=== PATIENT | female | born 1955 | race Caucasian/White ===

== ENCOUNTER → 2017-04-09 | Outpatient (CLI) | payer OTHER ==
[2017-04-09 14:57] LABS: CH 33.9; CHCM 33.8; HCT 42.9 % (34.0-46.0); HDW 2.19; HGB 14.4 gm/dL (11.4-16.0); MCH 33.7 pg (25.0-35.0); MCHC 33.5 g/dL (31.0-37.0); MCV 100.7 fL (80.0-100.0); Mean Platelet Volume 6.9; RBC 4.27 m/uL (3.80-5.40); RDW 12.9 % (11.5-15.5); WBC 11.6 k/uL (3.8-10.6)
[2017-04-09 15:11] LABS: Anion Gap 8 mmol/L; Blood Urea Nitrogen 8 mg/dL (7-17); Calcium 9.7 mg/dL (8.4-10.2); Carbon Dioxide 31 mmol/L (22-30); Chloride 101 mmol/L (98-107); Glucose 86 mg/dL (74-99); Non-African American GFR(MDRD) >60 (>60 ml/min/1.73 sqM); Potassium 4.6 mmol/L (3.5-5.1); Sodium 140 mmol/L (137-145)
== END | disposition home or self-care (01) ==
LOC: LABPAT 14:31
PROVIDERS: ATTEND Obstetrics & Gynecology
DX: Z01.810 Encounter for preprocedural cardiovascular examination (principal); Z01.812 Encounter for preprocedural laboratory examination
CPT/HCPCS: 80048; 85027

== ENCOUNTER 2017-04-15 07:55 | Day surgery (SDC) | payer OTHER ==
--- NOTE | 2017-04-15 07:33 | P.HPOB ---
History of Present Illness H&P Date: 04/15/17 Chief Complaint: Uterine prolapse This 60-year-old female who has significant uterine and vaginal prolapse. Symptoms have been worsening over the last 2 years but have started to stabilize since her work has stopped. Discussion on treatment options for her prolapse were discussed and while we did discuss and offered pessary she would prefer a more permanent solution and as she is not sexually active would like this repaired as fully as possible. She is therefore scheduled for robotic- assisted laparoscopic hysterectomy with BSO and likely anterior with possible posterior repair. The anterior posterior repair however will be decided once she is asleep and once the hysterectomy is completed. Risks/benefits/ alternatives to this procedure were discussed with the patient in detail and included but were not limited to damage to bowel, bladder, ureters, bleeding, and infection. Dr.' ceja clear her for cardiology. On physical exam vital signs are stable and afebrile. Heart regular, lungs clear, extremities without pain. Abdominal exams unremarkable. Vaginal exam reveals grade 2-3 prolapse of uterus and bladder. Predominantly the reason robot is been used just for assistance in removal of ovaries due to age greater than 60. She's are answered for her prior to proceeding to the operating room. Assessment vaginal prolapse. Plan robotic-assisted laparoscopic hysterectomy withBSO possible AKUA. Likely anterior and possible posterior repair. Past Medical History Past Medical History: COPD, GERD/Reflux, Hyperlipidemia, Hypertension Additional Past Medical History / Comment(s): urinary leakage,uterine prolapse History of Any Multi-Drug Resistant Organisms: None Reported Past Surgical History: Hernia Repair, Orthopedic Surgery Additional Past Surgical History / Comment(s): umbilical hernia repair,ORIF lt wrist,carpel tunnel ruby wrist,rt hand tendon repair,facial reconstruction-metal plate chin-repair mult fx around lt eye and face,teeth removed,rt cheek skin fatty tumor removed Past Anesthesia/Blood Transfusion Reactions: No Reported Reaction Additional Past Anesthesia/Blood Transfusion Reaction / Comment(s): no hx blood transfusion Smoking Status: Current every day smoker - Past Family History Mother Family Medical History: Cancer Additional Family Medical History / Comment(s): renal cell carcinoma Father Family Medical History: Cancer Additional Family Medical History / Comment(s): brain Son(s) Family Medical History: Congestive Heart Failure (CHF), Renal Disease Additional Family Medical History / Comment(s): obesity,hemodialysis,MRSA Medications and Allergies Home Medications Medication Instructions Recorded Confirmed Type Albuterol Sulfate [Ventolin Hfa] 1 - 2 puff INHALATION Q6H PRN 04/05/17 History Alendronate Sodium [Fosamax] 70 mg PO Q7D 04/05/17 04/05/17 History Atorvastatin [Lipitor] 10 mg PO DAILY 04/05/17 04/05/17 History Budesonide/Formoterol Fumarate 2 puff INHALATION BID 04/05/17 04/05/17 History [Symbicort 160-4.5 Mcg Inhaler] Ergocalciferol [Vitamin D2] 50,000 unit PO Q30D 04/05/17 04/05/17 History Metoprolol Tartrate [Lopressor] 25 mg PO BID 04/05/17 04/05/17 History Naproxen Sodium [Aleve] 220 - 440 mg PO BID PRN 04/05/17 04/05/17 History Omeprazole [PriLOSEC] 20 mg PO BID 04/05/17 04/05/17 History Allergies Allergy/AdvReac Type Severity Reaction Status Date / Time meperidine [From Demerol] Allergy Dyspnea Verified 04/05/17 15:05 Exam Osteopathic Statement: *. No significant issues noted on an osteopathic structural exam other than those noted in the History and Physical/Consult.
[~2017-04-15 07:55] MED LIST: DEXAMETHASONE SOD PHOSPHATE 10 MG/ML 1 ML VIAL IV ONE; LIDOCAINE 1% 20 ML VIAL (10MG/ML) FOR IV START INTRADERMA PRN; ONDANSETRON 4 MG/2 ML VIAL IVP ONE; SCOPOLAMINE 1.5MG/72HR PATCH TRANSDERM ONE; ceFAZolin 2 GM in SODIUM CHLORIDE 0.9% 100 ML IVPB ONE; fentaNYL (PF) 50 MCG/ML 2 ML AMP IV PRN
[2017-04-15] MEDS: LACTATED RINGERS 1,000 ML IV SCH (08:39)
[2017-04-15 08:50] LABS: Glucose,Whole Blood 133 mg/dL (75-99)
[2017-04-15] MEDS ORDERED: BUPIVACAINE (PF) 0.25% 30 ML VIAL SQ ONE (10:10)
[2017-04-15] MEDS ORDERED: SIMETHICONE 80 MG CHEWABLE PO PRN (10:43)
[2017-04-15] MEDS ORDERED: Acetaminophen-Codeine 300-30mg TAB PO PRN ×2 (10:43)
[2017-04-15] MEDS ORDERED: ONDANSETRON 4 MG/2 ML VIAL IVP PRN (10:43)
[2017-04-15] MEDS ORDERED: KETOROLAC 30 MG/ML 1 ML VIAL IVP PRN (10:43)
[2017-04-15] MEDS ORDERED: diphenhydrAMINE 50 MG/ML 1 ML VIAL IVP PRN (10:43)
[2017-04-15] MEDS ORDERED: ALBUTEROL NEBULIZED 2.5 MG/3 ML INHALATION PRN (10:45)
[2017-04-15] MEDS ORDERED: NON-FORMULARY DRUG (Alendronate Sodium [Fosamax] 70 MG) PO SCH (10:45)
--- NOTE | 2017-04-15 10:54 | P.OP ---
Date of Procedure: 04/15/17 Preoperative Diagnosis: Uterine prolapse Postoperative Diagnosis: same Procedure(s) Performed: daVinci hysterectomy with BSO Implants: Anesthesia: QING Surgeon: Camilo Hinojosa Pickle Pumper #1: Cheryl Dc Estimated Blood Loss (ml): 5 IV fluids (ml): 600 Urine output (ml): 100 Pathology: other (uterus, cervix, fallopian tubes, and ovaries) Indications for Procedure: Operative Findings: Screening polyp noted during procedure however at the conclusion procedure there was minimal cystocele or rectocele. As she was also having some difficulty with anesthesia the decision to stop the case at this point was made with what grossly appeared to be adequate repair of cystocele and rectocele from hysterectomy itself Description of Procedure: She was taken to the operating suite where a general anesthetic was found be adequate. She was prepped and draped in the normal sterile fashion and placed in dorsal lithotomy position. Initially a speculum was inserted into the vagina and the anterior lip of cervix identified grasped with single-tooth tenaculum. Uterus was then sounded to 8 cm and cup was measured to 3 cm. Gladis manipulator was inserted without difficulty and sutures were placed at 3-9/10 clock position. Roberts cath was then placed other incidents removed and at this point gloves were changed and attention was turned to abdominal portion procedure. Initially 0.2 mL of quarter percent Marcaine was injected superior to her umbilicus. Through this injected anesthetic a 5 mm skin incision was made. Due to how skinny the patient was we did elevate the abdomen and skin with concern over night going all the way through the fascial layer to avoid this from happening. Once skin incision was made a 5 mm port and sleeve were inserted under direct visualization with an optical trocar and sleeve. Once peritoneal placement was assured gas left fully insufflate the abdomen. Patient was then placed in steep Trendelenburg position and 2 lateral ports and a fourth port and sleeve were inserted in normal fashion 10 cm lateral to the umbilicus and between the left lateral and medial port. Robot was brought in and docked with a scissor and the one arm and a [place] grasper in the 2 arm at this point did break scrub and go to the console. Uterus was elevated to the right-hand side where the infundibular pelvic lid was identified cauterized and cut cauterization and cutting through the broad ligament tissues was made all the way to the round ligament which was also cauterized and transected. Once this was accomplished anterior posterior leafs of the broad ligament were developed and dissected down to skeletonize the vasculature on the left-hand side. Vessels were then identified and cauterized. At this point used to the [place] grasped undermining the bladder flap was undermined and then incised with of some bumps and carried across the face of the uterus. Bladder was then bluntly dissected out of the operative field. Attention was then turned to the right-hand side and a similar fashion was developed. Once this was accomplished and it appeared we had good cauterization of uterine vessels an anterior colpotomy was made. Once this was accomplished and the cup was visualized did follow the couple around in 3 and 60 fashion in a counterclockwise fashion cheating head when necessary to maintain excellent hemostasis. Once 3 and 60 was completed uterus was brought into the vagina to help maintain pneumoperitoneum. Seeing no bleeding from the pedicles instruments were exchanged for a cardia grasper and a make suture cut and side effects suture 20 was used to reapproximate the vaginal cuff. Once this was accomplished pelvis irrigated and instruments were removed 5 deep breaths were provided during the process. Dr. Dc at this point did close the incision subcuticularly. Anesthesia was having some difficulty due to her prior medical problems and with what grossly appeared to be excellent repair of the prolapse the decision to stop the case was. Cystoscopy was then performed and good flow was noted from both ureteral jets. Roberts cath was replaced and patient was taken to the recovery room in stable and satisfactory condition. Sponge, lap, needle counts were all correct 2 and patient tolerated my portion of the procedure very well.
[2017-04-15] MEDS ORDERED: LEVALBUTEROL NEB 1.25 MG/3 ML AMP INHALATION ONE (11:11)
[2017-04-15] MEDS ORDERED: KETOROLAC 30 MG/ML 1 ML VIAL IVP ONE (11:41)
--- NOTE | 2017-04-15 11:51 | XR ---
EXAMINATION TYPE: XR chest 1V DATE OF EXAM: 04/15/2017 COMPARISON: NONE HISTORY: Rule out pneumothorax after uterus and bladder surgery. TECHNIQUE: Single AP portable frontal upright view of the chest is obtained. FINDINGS: Underlying chronic emphysematous change is felt present. There is no suspicious focal air s pace opacity, pleural effusion, or pneumothorax seen. Patchy right basilar scarring and/or atelectasi s is felt present. The cardiac silhouette size is within normal limits. The osseous structures are demineralized. Pneumoperitoneum is present presumed postsurgical. There is extensive subcutaneous em physema in both chest valles extending to bilateral supraclavicular region. IMPRESSION: Pneumoperitoneum presumed postsurgical. Extensive subcutaneous emphysema noted. There is chronic emphysematous change with right basilar scarring or atelectasis. No sizable pneumothorax is evident bilaterally.
[2017-04-15] MEDS ORDERED: LACTATED RINGERS 1,000 ML IV ONE (12:09)
[2017-04-15] MEDS: SENNOSIDES-DOCUSATE SODIUM 1 EACH TAB PO SCH (20:46)
[2017-04-15] MEDS: PANTOPRAZOLE 40 MG TABLET PO SCH (20:48)
[2017-04-15] MEDS: SYMBICORT 160-4.5 MCG INHALER INHALATION SCH (20:52)
[2017-04-15] MEDS: METOPROLOL TARTRATE 25 MG TAB PO SCH (21:03)
[2017-04-16 07:23] LABS: Basophils % (A) 0 %; CH 33.5; CHCM 32.2; Eosinophils # (A) 0.1 k/uL (0-0.7); Eosinophils % (A) 1 %; HCT 37.3 % (34.0-46.0); HDW 2.11; HGB 12.4 gm/dL (11.4-16.0); Luc # (Auto) 0.18; Luc % (Auto) 2; Lymphocytes # (A) 2.3 k/uL (1.0-4.8); Lymphocytes % (A) 28 %; MCH 34.8 pg (25.0-35.0); MCHC 33.2 g/dL (31.0-37.0); MCV 104.7 fL (80.0-100.0); Macrocytosis Slight; Mean Platelet Volume 7.1; Monocytes # (A) 0.5 k/uL (0-1.0); Monocytes % (A) 6 %; Neutrophils # (A) 5.1 k/uL (1.3-7.7); Neutrophils % (A) 63 %; RBC 3.56 m/uL (3.80-5.40); RDW 12.5 % (11.5-15.5); WBC 8.1 k/uL (3.8-10.6); WBC (Perox) 8.65
[2017-04-16] MEDS: PANTOPRAZOLE 40 MG TABLET PO SCH (08:25)
[2017-04-16] MEDS: METOPROLOL TARTRATE 25 MG TAB PO SCH (08:25)
[2017-04-16] MEDS: SENNOSIDES-DOCUSATE SODIUM 1 EACH TAB PO SCH (08:33)
[2017-04-16 08:47] VITALS: RESP 18; TEMP 97
[2017-04-16] MEDS ORDERED: ATORVASTATIN 10 MG TAB PO SCH (09:00)
[2017-04-16] MEDS: SYMBICORT 160-4.5 MCG INHALER INHALATION SCH (09:47)
[2017-04-16 10:26] VITALS: BMI 15.6
--- NOTE | 2017-04-16 12:27 | P.DS ---
Providers Expected date of discharge: 04/16/17 Attending physician: Camilo Hinojosa Consults: 04/15/17 10:47 Consult Physician Urgent Consulting Provider: Raymundo Barroso Consult Reason/Comments: hypertension Do you want consulting provider notified?: Yes Hospital Course: Emily is doing very well postop day 1. She is involuting, voiding, and she is tolerating her diet. She's passed flatus and voices no complaints. She is requesting discharge home today. Vital signs are stable and afebrile. However , she normally is hypertensive and has had low blood pressure since the surgery. We'll plan to have her see Dr. Maria later this week for reevaluation of her medication she is aware to call us or her primary or Dr. Maria should she have any elevated blood pressures or concerning blood pressures in the meantime. We'll plan to follow up with me in 1 week and a prescription for Tylenol No. 3 has been provided. Otherwise she has irregular heartbeat, lungs sound clear and her abdomen is soft and nontender. Incisions are clean dry and intact with minimal swelling of her abdomen due to air from surgery and her very slight frame. Extremities are without pain. Assessment postop day 1. As above. Patient Condition at Discharge: Good Plan - Discharge Summary New Discharge Prescriptions: New Acetaminophen-Codeine 300-30mg [Tylenol #3] 1 tab PO Q4H PRN #30 tablet PRN Reason: Pain No Action Ergocalciferol [Vitamin D2] 50,000 unit PO Q30D Alendronate Sodium [Fosamax] 70 mg PO Q7D Omeprazole [PriLOSEC] 20 mg PO BID Naproxen Sodium [Aleve] 220 - 440 mg PO BID PRN PRN Reason: Pain Metoprolol Tartrate [Lopressor] 25 mg PO BID Budesonide/Formoterol Fumarate [Symbicort 160-4.5 Mcg Inhaler] 2 puff INHALATION BID Atorvastatin [Lipitor] 10 mg PO DAILY Albuterol Sulfate [Ventolin Hfa] 1 - 2 puff INHALATION Q6H PRN PRN Reason: Pain Discharge Medication List Albuterol Sulfate [Ventolin Hfa] 1 - 2 puff INHALATION Q6H PRN 04/05/17 [History ] Alendronate Sodium [Fosamax] 70 mg PO Q7D 04/05/17 [History] Atorvastatin [Lipitor] 10 mg PO DAILY 04/05/17 [History] Budesonide/Formoterol Fumarate [Symbicort 160-4.5 Mcg Inhaler] 2 puff INHALATION BID 04/05/17 [History] Ergocalciferol [Vitamin D2] 50,000 unit PO Q30D 04/05/17 [History] Metoprolol Tartrate [Lopressor] 25 mg PO BID 04/05/17 [History] Naproxen Sodium [Aleve] 220 - 440 mg PO BID PRN 04/05/17 [History] Omeprazole [PriLOSEC] 20 mg PO BID 04/05/17 [History] Acetaminophen-Codeine 300-30mg [Tylenol #3] 1 tab PO Q4H PRN #30 tablet [Rx] Follow up Appointment(s)/Referral(s): Camilo Hinojosa DO [Doctor of Osteopathic Medicine] - 1 Week Raymundo Barroso MD [STAFF PHYSICIAN] - 3 Days Activity/Diet/Wound Care/Special Instructions: No heavy lifting, limit stairs and driving, and pelvic rest. If any high temperatures, heavy bleeding, or severe pain call my office. We'll have her follow up with cardiology as soon as possible as they did not see her in the hospital and her blood pressures have been too low for us to provide medication. She has a blood pressure cuff at home and can monitor that as well and she has any blood pressures are beginning to get elevated we'll have her call her primary care provider, Dr. Maria or myself or report to the emergency room. Discharge Disposition: HOME SELF-CARE
[2017-04-16 12:42] VITALS: BP 95/65; PULSE 78
[2017-04-16] MEDS: LACTATED RINGERS 1,000 ML IV SCH (12:47)
== END 2017-04-16 13:30 | disposition home or self-care (01) ==
LOC: OR 07:55 → 6PED 10:38 → 6SEL 12:45 → 6PED 14:12 → OR 04-16 13:30
PROVIDERS: ATTEND Obstetrics & Gynecology
DX: N81.2 Incomplete uterovaginal prolapse (principal); N72 Inflammatory disease of cervix uteri; N85.8 Other specified noninflammatory disorders of uterus; N84.0 Polyp of corpus uteri; N80.0 Endometriosis of uterus; N83.8 Other noninflammatory disorders of ovary, fallopian tube and broad ligament; D27.9 Benign neoplasm of unspecified ovary; I95.81 Postprocedural hypotension; J43.9 Emphysema, unspecified; I10 Essential (primary) hypertension; E78.5 Hyperlipidemia, unspecified; J44.9 Chronic obstructive pulmonary disease, unspecified; K21.9 Gastro-esophageal reflux disease without esophagitis; F17.210 Nicotine dependence, cigarettes, uncomplicated; Z79.51 Long term (current) use of inhaled steroids; Z79.899 Other long term (current) drug therapy; Z88.8 Allergy status to other drugs, medicaments and biological substances
CPT/HCPCS: 58552; 94640 ×2; 86900; 86901; 85025; 86850; 88307; 71010; J1100; J0690; J2405; J1885

== ENCOUNTER 2022-12-10 21:17 | Inpatient (IN) | payer MEDICARE, OTHER ==
[2022-12-10 21:59] LABS: Basophils # (A) 0.1 k/uL (0-0.2); Basophils % (A) 0 %; Eosinophils # (A) 0.2 k/uL (0-0.7); Eosinophils % (A) 2 %; HCT 32.6 % (34.0-46.0); HGB 10.7 gm/dL (11.4-16.0); Lymphocytes # (A) 1.8 k/uL (1.0-4.8); Lymphocytes % (A) 13 %; MCH 31.9 pg (25.0-35.0); MCHC 32.7 g/dL (31.0-37.0); MCV 97.6 fL (80.0-100.0); Mean Platelet Volume 7.5; Monocytes # (A) 0.8 k/uL (0-1.0); Monocytes % (A) 6 %; Neutrophils # (A) 10.9 k/uL (1.3-7.7); Neutrophils % (A) 78 %; Platelet Count 359 k/uL (150-450); RBC 3.34 m/uL (3.80-5.40); RDW 13.4 % (11.5-15.5); WBC 14.1 k/uL (3.8-10.6)
[2022-12-10 22:08] LABS: Lactic Acid, Venous 1.1 mmol/L (0.7-2.0)
[2022-12-10 22:09] LABS: ALT 20 U/L (4-34); AST 61 U/L (14-36); African American GFR (CKD) >90 (>60 ml/min/1.73 sqM); Albumin 2.6 g/dL (3.5-5.0); Alcohol <10 mg/dL; Alkaline Phosphatase 210 U/L (38-126); Anion Gap 2 mmol/L; Blood Urea Nitrogen 10 mg/dL (7-17); Carbon Dioxide 28 mmol/L (22-30); Chloride 104 mmol/L (98-107); Glucose 82 mg/dL (74-99); Lipase 152 U/L (23-300); Magnesium 1.2 mg/dL (1.6-2.3); Non-African American GFR(CKD) >90 (>60 ml/min/1.73 sqM); Sodium 134 mmol/L (137-145); Total Bilirubin 1.1 mg/dL (0.2-1.3); Total Protein 6.1 g/dL (6.3-8.2)
--- NOTE | 2022-12-10 22:16 | XR ---
EXAMINATION TYPE: XR chest 2V DATE OF EXAM: 12/10/2022 COMPARISON: NONE HISTORY: Weakness TECHNIQUE: 2 views FINDINGS: Heart is normal. Lungs are clear of consolidation. There are no hilar masses. There is flat tening of the diaphragm. Bony thorax is intact. There is bilateral nipple shadows. Thoracic spine is intact. IMPRESSION: There is evidence for COPD. Normal heart. No significant change compared to exam. No acut e lung disease.
--- NOTE | 2022-12-10 22:17 | ED ---
General Adult HPI - General Chief complaint: Abdominal Pain Stated complaint: Swelling in feet, Prolapse rectum, Weakness Source: patient Mode of arrival: EMS Limitations: no limitations - History of Present Illness Initial comments: This is a 67-year-old female with a reported past medical history including hypertension, COPD presents emergency department via EMS for worsening weakness and abdominal distention as well as lower extremity swelling. The patient did admit that she has not seen a physician in several years and stated that she does not take any medications. The patient stated that she has had worsening abdominal distention over last several months in addition to swelling in the lower extremities over the last several months. The patient stated that her hailey ghter did continue to yell at her and forced her to come to the emergency department. The patient denied any acute pain at this time however stated that she had difficulty in relating that has been worsening over the last several weeks. The patient was resting in bed comfortably however and denied any fevers, chills as well as any nausea and vomiting. The patient did report that she had rectal prolapse intermittently over last several months and stated that it does prolapse only when she uses the bathroom but then does produce back when she moves around the house. The patient did admit to daily tobacco use however only reported to drinking 1 cocktail per day. - Related Data Home Medications Medication Instructions Recorded Confirmed No Known Home Medications 12/10/22 12/10/22 Allergies Allergy/AdvReac Type Severity Reaction Status Date / Time meperidine [From Demerol] Allergy Dyspnea Verified 12/10/22 21:45 Review of Systems ROS Statement: Those systems with pertinent positive or pertinent negative responses have been documented in the HPI. ROS Other: All systems not noted in ROS Statement are negative. Past Medical History Past Medical History: COPD, GERD/Reflux, Hyperlipidemia, Hypertension Additional Past Medical History / Comment(s): urinary leakage,uterine prolapse History of Any Multi-Drug Resistant Organisms: None Reported Past Surgical History: Hernia Repair, Orthopedic Surgery Additional Past Surgical History / Comment(s): umbilical hernia repair,ORIF lt wrist,carpel tunnel ruby wrist,rt hand tendon repair,facial reconstruction-metal plate chin-repair mult fx around lt eye and face,teeth removed,rt cheek skin fatty tumor removed Past Anesthesia/Blood Transfusion Reactions: No Reported Reaction Additional Past Anesthesia/Blood Transfusion Reaction / Comment(s): no hx blood transfusion Past Psychological History: Anxiety Past Alcohol Use History: Occasional Past Drug Use History: None Reported - Past Family History Mother Family Medical History: Cancer Additional Family Medical History / Comment(s): renal cell carcinoma Father Family Medical History: Cancer Additional Family Medical History / Comment(s): brain Son(s) Family Medical History: Congestive Heart Failure (CHF), Renal Disease Additional Family Medical History / Comment(s): obesity,hemodialysis,MRSA General Exam Limitations: no limitations General appearance: alert, in no apparent distress, cachectic, other (Temporal wasting noted) Head exam: Present: atraumatic, normocephalic, normal inspection Eye exam: Present: normal appearance, PERRL Pupils: Present: normal accommodation ENT exam: Present: normal exam, normal oropharynx, mucous membranes moist Neck exam: Present: normal inspection, full ROM Respiratory exam: Present: normal lung sounds bilaterally Cardiovascular Exam: Present: regular rate, normal rhythm, normal heart sounds GI/Abdominal exam: Present: soft, distended, other (Positive fluid wave and pitting edema noted) Rectal exam: Present: deferred Extremities exam: Present: pedal edema (Significant edema noted in the bilateral lower extremities with open sores noted on the left lower extremity with surrounding minor erythema) Back exam: Present: normal inspection, full ROM Neurological exam: Present: alert, oriented X3, CN II-XII intact Psychiatric exam: Present: normal affect, normal mood Skin exam: Present: warm, dry Course Vital Signs 12/10/22 21:30 Temperature 98.1 F Pulse Rate 103 H Respiratory 16 Rate Blood Pressure 125/85 O2 Sat by Pulse 99 Oximetry EKG Findings - EKG Comments: EKG Findings:: An EKG was obtained and was interpreted by myself showing a rate of 89, ID interval 148, QRS duration of 67 and QTC of 397. This EKG showed a normal sinus rhythm with no ST segment elevation or depression noted. Medical Decision Making - Medical Decision Making Was pt. sent in by a medical professional or institution (, PA, PULPIT OPERATOR, urgent care, hospital, or [facility]...) When possible be specific @ -No Did you speak to anyone other than the patient for history (EMS, parent, family, police, friend...)? What history was obtained from this source @ -No Did you review nursing and triage notes (agree or disagree)? Why? @ -I reviewed and agree with nursing and triage notes Were old charts reviewed (outside hosp., previous admission, EMS record, old EKG, old radiological studies, urgent care reports/EKG's, [facility] records)? Report findings @ -No old charts were reviewed Differential Diagnosis (chest pain, altered mental status, abdominal pain women, abdominal pain men, vaginal bleeding, weakness, fever, dyspnea, syncope, headache, dizziness, GI bleed, back pain, seizure, CVA, palpatations, mental health)? @ -Cirrhosis, abdominal ascites, generalized anasarca, UTI EKG interpreted by me (3pts min.). @ -As above X-rays interpreted by me (1pt min.). @ -Chest x-ray was obtained and was interpreted by myself showing evidence for COPD. There was a normal heart. There is no significant change compared to the prior exam. CT interpreted by me (1pt min.). @ -CT abdomen and pelvis with contrast was obtained and was interpreted by myself showing massive abdominal ascites. There is changes in the liver consistent with cirrhosis. There was sigmoid diverticulosis without diverticulitis. There was a small left food containing inguinal hernia. There is also perirectal hernia containing ascites fluid. There is some poorly marginated hypodensity in the superior and inferior right lobes of the liver that could be fatty infiltration. U/S interpreted by me (1pt. min.). @ -None done What testing was considered but not performed or refused? (CT, X-rays, U/S, labs)? Why? @ -None What meds were considered but not given or refused? Why? @ -None Did you discuss the management of the patient with other professionals (professionals i.e. , PA, PULPIT OPERATOR, lab, RT, psych nurse, social work instructor, website admin, teacher, worldwide chief creative officer, patient case manager)? Give summary @ -Yes, admitting physician Was smoking cessation discussed for >3mins.? @ -Yes Was critical care preformed (if so, how long)? @ -No Were there social determinants of health that impacted care today? How? (Homelessness, low income, unemployed, alcoholism, drug addiction, transportation, low edu. Level, literacy, decrease access to med. care, alf, rehab)? @ -No Was there de-escalation of care discussed even if they declined (Discuss DNR or withdrawal of care, Hospice)? DNR status @ -No What co-morbidities impacted this encounter? (DM, HTN, Smoking, COPD, CAD, Cancer, CVA, ARF, Chemo, Hep., AIDS, mental health diagnosis, sleep apnea, morbid obesity)? @ -Hypertension, COPD, medical noncompliance and lack of follow-up Was patient admitted / discharged? Hospital course, mention meds given and route, prescriptions, significant lab abnormalities, going to OR and other pertinent info. @ -The patient was seen and evaluated in the emergency department. On physical exam, the patient was resting in bed without any acute distress. Vital signs admission were stable. Laboratory workup as well as imaging was obtained. Laboratory workup was largely within normal limits however computed tomography scan showed massive abdominal ascites and the patient did have generalized anasarca on exam. The patient was given Lasix. Due to the patient's generalized anasarca and worsening massive abdominal ascites, the patient will be admitted for further workup and evaluation. Interventional radiology will be also be placed on consult at this time. The patient was told of this plan and was agreeable. The patient was admitted in stable condition. Undiagnosed new problem with uncertain prognosis? @ -No Drug Therapy requiring intensive monitoring for toxicity (Heparin, Nitro, Insulin, Cardizem)? @ -No Were any procedures done? @ -No Diagnosis/symptom? @ -Cirrhosis with massive abdominal ascites and generalized anasarca Acute, or Chronic, or Acute on Chronic? @ -Acute on chronic Uncomplicated (without systemic symptoms) or Complicated (systemic symptoms)? @ -Complicated Side effects of treatment? @ -No Exacerbation, Progression, or Severe Exacerbation? @ -No Poses a threat to life or bodily function? How? (Chest pain, [place], [place], pneumonia, PE, COPD, DKA, ARF, appy, cholecystitis, CVA, Diverticulitis, Homicidal, Suicidal, threat to staff... and all critical care pts) @ -Yes, worsening ascites and generalized anasarca can cause continued fluid overload and shortness of breath with possible end-stage organ damage and possible . - Lab Data Result diagrams: 12/10/22 21:52 12/10/22 21:52 Lab Results 12/10/22 12/10/22 12/10/22 Range/Units 21:52 21:52 21:52 WBC 14.1 H (3.8-10.6) k/uL RBC 3.34 L (3.80-5.40) m/uL Hgb 10.7 L (11.4-16.0) gm/dL Hct 32.6 L (34.0-46.0) % MCV 97.6 (80.0-100.0) fL MCH 31.9 (25.0-35.0) pg MCHC 32.7 (31.0-37.0) g/dL RDW 13.4 (11.5-15.5) % Plt Count 359 (150-450) k/uL MPV 7.5 Neutrophils % 78 % Lymphocytes % 13 % Monocytes % 6 % Eosinophils % 2 % Basophils % 0 % Neutrophils # 10.9 H (1.3-7.7) k/uL Lymphocytes # 1.8 (1.0-4.8) k/uL Monocytes # 0.8 (0-1.0) k/uL Eosinophils # 0.2 (0-0.7) k/uL Basophils # 0.1 (0-0.2) k/uL Sodium 134 L (137-145) mmol/L Potassium 4.0 (3.5-5.1) mmol/L Chloride 104 (98-107) mmol/L Carbon Dioxide 28 (22-30) mmol/L Anion Gap 2 mmol/L BUN 10 (7-17) mg/dL Creatinine 0.43 L (0.52-1.04) mg/dL Est GFR (CKD-EPI)AfAm >90 (>60 ml/min/1.73 sqM) Est GFR (CKD-EPI)NonAf >90 (>60 ml/min/1.73 sqM) Glucose 82 (74-99) mg/dL Plasma Lactic Acid Charles 1.1 (0.7-2.0) mmol/L Calcium 8.0 L (8.4-10.2) mg/dL Magnesium 1.2 L (1.6-2.3) mg/dL Total Bilirubin 1.1 (0.2-1.3) mg/dL AST 61 H (14-36) U/L ALT 20 (4-34) U/L Alkaline Phosphatase 210 H (38-126) U/L Ammonia <9 (<30) umol/L Troponin I (0.000-0.034) ng/mL NT-Pro-B Natriuret Pep pg/mL Total Protein 6.1 L (6.3-8.2) g/dL Albumin 2.6 L (3.5-5.0) g/dL Lipase 152 (23-300) U/L Serum Alcohol <10 mg/dL 12/10/22 12/10/22 Range/Units 21:52 21:52 WBC (3.8-10.6) k/uL RBC (3.80-5.40) m/uL Hgb (11.4-16.0) gm/dL Hct (34.0-46.0) % MCV (80.0-100.0) fL MCH (25.0-35.0) pg MCHC (31.0-37.0) g/dL RDW (11.5-15.5) % Plt Count (150-450) k/uL MPV Neutrophils % % Lymphocytes % % Monocytes % % Eosinophils % % Basophils % % Neutrophils # (1.3-7.7) k/uL Lymphocytes # (1.0-4.8) k/uL Monocytes # (0-1.0) k/uL Eosinophils # (0-0.7) k/uL Basophils # (0-0.2) k/uL Sodium (137-145) mmol/L Potassium (3.5-5.1) mmol/L Chloride (98-107) mmol/L Carbon Dioxide (22-30) mmol/L Anion Gap mmol/L BUN (7-17) mg/dL Creatinine (0.52-1.04) mg/dL Est GFR (CKD-EPI)AfAm (>60 ml/min/1.73 sqM) Est GFR (CKD-EPI)NonAf (>60 ml/min/1.73 sqM) Glucose (74-99) mg/dL Plasma Lactic Acid Charles (0.7-2.0) mmol/L Calcium (8.4-10.2) mg/dL Magnesium (1.6-2.3) mg/dL Total Bilirubin (0.2-1.3) mg/dL AST (14-36) U/L ALT (4-34) U/L Alkaline Phosphatase (38-126) U/L Ammonia (<30) umol/L Troponin I <0.012 (0.000-0.034) ng/mL NT-Pro-B Natriuret Pep 453 pg/mL Total Protein (6.3-8.2) g/dL Albumin (3.5-5.0) g/dL Lipase (23-300) U/L Serum Alcohol mg/dL Disposition Clinical Impression: Abdominal ascites, Cirrhosis, Anasarca Disposition: ADMITTED IP TO THIS HOSP Condition: Stable Is patient prescribed a controlled substance at d/c from ED?: No Referrals: None,Stated [Primary Care Provider] - 1-2 days Time of Disposition: 23:45 Decision to Admit Reason: Admit from EC Decision Date: 12/10/22 Decision Time: 23:45
--- NOTE | 2022-12-10 23:10 | CT ---
EXAMINATION TYPE: CT abdomen pelvis w con DATE OF EXAM: 12/10/2022 COMPARISON: None HISTORY: Abdominal distention and pain. CT DLP: 530 mGycm Automated exposure control for dose reduction was used. CONTRAST: Performed with IV Contrast, patient injected with 100cc mL of Isovue 300. Images obtained from the diaphragm to the floor the pelvis with the IV contrast. Lung bases are clear of consolidation. Heart size is normal. No pericardial effusion. There is pulmon mariela hyperinflation and flattening of the diaphragm. There is irregular liver consistent with some hepatic cirrhosis. There is massive abdominal ascites f luid. Spleen is intact. No pancreatic mass. The stomach is intact. There is no adrenal mass. Kidneys show satisfactory contrast opacification. No hydronephrosis. Abdomi nal aorta is atheromatous. No retroperitoneal adenopathy. Ureters are not dilated. Delayed images woodrow w normal renal excretion. Bladder distends smoothly. No evidence of a bowel obstruction. There are mu ltiple sigmoid diverticula. There is left inguinal hernia containing fluid and measures 3 cm. There i s descent of the floor of the urinary bladder and consistent with a cystocele. No free air. The lumbar spine shows a mild levoscoliosis. No compression fracture. No focal bone dest ruction. Bony pelvis is intact. IMPRESSION: Massive abdominal ascites fluid. Changes in the liver consistent with some cirrhosis. Sigmoid diverti culosis without diverticulitis. Cystocele. Small left fluid containing inguinal hernia. There is also perirectal hernia containing as cites fluid. Atherosclerotic vascular disease. Emphysema. No discrete liver mass. There is some poorly marginated hypodensity in the superior and inferior right lobes of the liver that could be fatty infiltration. L iver mass not entirely excluded.
[2022-12-11] MEDS ORDERED: FUROSEMIDE 10 MG/ML 4 ML VIAL IV STA (00:11)
[2022-12-11] MEDS ORDERED: NALOXONE 0.4 MG/ML 1 ML VIAL IV PRN (00:11)
[2022-12-11 00:37] LABS: INR 1.2 (<1.2); Partial Thromboplastin Time 26.8 sec (22.0-30.0); Prothrombin Time 12.3 sec (9.0-12.0)
[2022-12-11] MEDS ORDERED: IPRATROPIUM-ALBUTEROL 3 ML NEB INHALATION PRN (03:58)
--- NOTE | 2022-12-11 03:58 | P.HPIM ---
History of Present Illness H&P Date: 12/11/22 Chief Complaint: abd distention 67 year old female with COPD, hypertension patient presented from home, after her daughter insisted that gets evaluated for significant weight loss over the past few months to a year, and increase abd distention over the past few months . patient seems to be indifferent to her clinical situation , and has not seen a doctor in years. she admits to remove history of alcohol dependance but denies anything recent , she vaguely admits to daily cocktail. she continue to smoke cigarettes. she noted increase abd distention , but denies any trouble breathing, she has been increase fiber in her diet, and noted some decrease in abd size. she denies any nausea vomiting, GI bleeding, or vaginal bleeding , denies IVDA, denies any abd pain, or difficulty breathing. she admits to increase weakness and difficulty ambulating, she lives alone , and her daughter checks on her regularly again denies any history of IVDA, or history of hepatitis. she also noted that her left leg has been weeping from edema , over the past few days, which made her consider getting evaluated denies any calf muscle tenderness Review of Systems Pertinent positives as noted in HPI. All other systems were reviewed and are negative Past Medical History Past Medical History: COPD, GERD/Reflux, Hyperlipidemia, Hypertension Additional Past Medical History / Comment(s): urinary leakage,uterine prolapse History of Any Multi-Drug Resistant Organisms: None Reported Past Surgical History: Hernia Repair, Orthopedic Surgery Additional Past Surgical History / Comment(s): umbilical hernia repair,ORIF lt wrist,carpel tunnel ruby wrist,rt hand tendon repair,facial reconstruction-metal plate chin-repair mult fx around lt eye and face,teeth removed,rt cheek skin fatty tumor removed Past Anesthesia/Blood Transfusion Reactions: No Reported Reaction Additional Past Anesthesia/Blood Transfusion Reaction / Comment(s): no hx blood transfusion Past Psychological History: Anxiety Past Alcohol Use History: Occasional Past Drug Use History: None Reported - Past Family History Mother Family Medical History: Cancer Additional Family Medical History / Comment(s): renal cell carcinoma Father Family Medical History: Cancer Additional Family Medical History / Comment(s): brain Son(s) Family Medical History: Congestive Heart Failure (CHF), Renal Disease Additional Family Medical History / Comment(s): obesity,hemodialysis,MRSA Medications and Allergies Home Medications Medication Instructions Recorded Confirmed Type No Known Home Medications 12/10/22 12/10/22 History Allergies Allergy/AdvReac Type Severity Reaction Status Date / Time meperidine [From Demerol] Allergy Dyspnea Verified 12/10/22 21:45 Physical Exam Vitals: Vital Signs Temp Pulse Resp BP Pulse Ox 12/10/22 21:30 98.1 F 103 H 16 125/85 99 Intake and Output 12/10/22 12/10/22 12/11/22 14:59 22:59 06:59 Other: Weight 47.627 kg Constitutional: No acute distress, cachectic Eyes: Anicteric sclerae, moist conjunctiva, Pupils equal round reactive to light ENMT: NC/AT Oropharynx clear, no erythema, or exudates. red tongue Neck: Supple, no masses, or JVD No carotid bruits No thyromegaly Lungs: Clear to auscultation Clear to percussion Normal respiratory effort, no accessory muscle use Cardiovascular: Heart regular in rate and rhythm, No murmurs, gallops, or rubs +3 bilateral peripheral edema Abdominal: distended , positive transmission thrill and shifting dullness Nontender, no guarding, rebound or rigidity Abdomen moving with respiration Normoactive bowel sounds No palpable mass No abdominal wall hernia noted Skin: small open weeping blisters over left leg, otherwise, Normal temperature, tone, texture, turgor Extremities: No digital cyanosis No clubbing Pedal pulses intact and symmetrical Radial pulses intact and symmetrical No calf tenderness Psychiatric: Alert and oriented to person, place and time Appropriate affect Neuro Muscles Strength 4/5 in bilateral upper extremities and 3/5 bialteral lower extremities Sensation to light touch grossly present throughout Cranial nerves II-XII grossly intact Lymphatics: no palpable cervical or supraclavicular lymph nodes Results CBC & Chem 7: 12/10/22 21:52 12/10/22 21:52 Labs: Abnormal Lab Results - Last 24 Hours (Table) 12/10/22 12/10/22 Range/Units 21:52 21:52 WBC 14.1 H (3.8-10.6) k/uL RBC 3.34 L (3.80-5.40) m/uL Hgb 10.7 L (11.4-16.0) gm/dL Hct 32.6 L (34.0-46.0) % Neutrophils # 10.9 H (1.3-7.7) k/uL Sodium 134 L (137-145) mmol/L Creatinine 0.43 L (0.52-1.04) mg/dL Calcium 8.0 L (8.4-10.2) mg/dL Magnesium 1.2 L (1.6-2.3) mg/dL AST 61 H (14-36) U/L Alkaline Phosphatase 210 H (38-126) U/L Total Protein 6.1 L (6.3-8.2) g/dL Albumin 2.6 L (3.5-5.0) g/dL Assessment and Plan Assessment: 67 year old female coming from home due to increase abd size, and weeping leg edema , I discussed case with ED doc, and I accepted the admission for workup of ascites and paracentesis with anticipated length of stay < 2 midnights massive ascites severe protein calorie malnutrition IV lasix 20 mg bid encourage PO intake IR consult for paracentesis , send fluid to cytology , gram stain , culture , GI consult check hepatitis panel alcohol level negative < 10 mild anemia with Hgb 10.7 denies any GI bleeding continue to monitor rectal prolapse surgery consult COPD compensated duoneb PRN hypomagnesemia replace IV and follow up levels full code DVT PPX SCDs
[2022-12-11] MEDS: MAGNESIUM SULFATE-D5W PMX 1 GM in DEXTROSE/WATER 1 100ML.BAG IVPB SCH ×4 (04:19→19:27)
[2022-12-11] MEDS: FUROSEMIDE 10 MG/ML 2 ML VIAL IV SCH ×2 (08:23→21:20)
[2022-12-11 08:53] LABS: Appearance,Urine Clear (Clear); Bacteria,Urine Occasional /hpf; Bilirubin,Urine Negative (Negative); Blood,Urine Negative (Negative); Color,Urine Colorless; Glucose,Urine (UA) Negative (Negative); Ketones,Urine Negative (Negative); Leukocyte Esterase,Urine Small (Negative); Mucus,Urine Rare /hpf; Nitrite,Urine Positive (Negative); PH, Urine 6.5 (5.0-8.0); Protein,Urine Negative (Negative); RBC,Urine <1 /hpf (0-5); Specific Gravity,Urine 1.012 (1.001-1.035); Squamous Epithelial Cell,Urine 1 /hpf (0-4); Urobilinogen,Urine <2.0 mg/dL (<2.0); WBC,Urine 1 /hpf (0-5)
--- NOTE | 2022-12-11 09:03 | P.PN ---
Subjective Progress Note Date: 12/11/22 Hospital course: Patient is a very pleasant 67-year-old female with a past medical history of COPD with continued nicotine dependence, daily alcohol use/abuse, and uterine and rectal prolapse. She presented to the emergency department on the evening of 12/10/22 with her daughter for evaluation of significant weight loss and increased abdominal distention and lower extremity edema progressively worsening over the past year and does not follow with a primary care doctor. Patient also reporting in addition to her rectal prolapse has gotten significantly worse and states her rectum/intestines "fall out" anytime she stands up or walks. Patient underwent full evaluation in the emergency department. Chest x-ray completed showing evidence of COPD but negative for acute intercranial process. EKG showing sinus mechanism at 89 bpm with no noted T-wave or ST abnormalities upon personal review and interpretation. Labs completed and reviewed. CBC showing leukocytosis with WBC count of 14.1 and normocytic anemia with hemoglobin of 10.7. Coagulation profile revealing an elevated PT of 12.3 and INR of 1.2. BMP revealing mild hyponatremia with sodium of 134 and a creatinine of 0.43. Calcium 8.0, however corrected calcium of 9.1 due to hypoalbuminemia with albumin of 2.6. Liver profile showing normal bilirubin of 1.1, AST of 61, ALT of 20, and alkaline phosphatase of 210. Magnesium 1.2 and was replaced in the emergency department. CT abdomen and pelvis with contrast was completed showing massive abdominal ascites fluid with changes in the liver consistent with cirrhosis, sigmoid diverticulosis without diverticulitis, a cystocele, small left fluid containing inguinal hernia, perirectal hernia containing ascites fluid, and poorly marginated hypodensities in the superior and inferior right lobes of the liver possibly secondary to fatty infiltrate however liver mass cannot be entirely excluded. Physical exam: Patient seen and fully evaluated at the bedside. Currently patient denies having any complaints at this time. Patient has severely distended abdomen with massive amount of ascites. However patient denies having any abdominal pain or discomfort, nausea or vomiting, or any other complaints at this time. Patient reports her rectal prolapse is okay at this time as she is lying down and that she only has severe prolapse upon standing or walking. Vital signs reviewed and stable. General: Cachectic appearance, appears older than her biological age, Emaciated with massive ascites Derm: Skin warm and dry, normal coloration for ethnicity. Head: Atraumatic, normocephalic and symmetric. Eyes: EOMs intact, no lid lag, and anicteric sclera Mouth: no lip lesions, mucus membranes moist Cardiovascular: regular rate and rhythm with normal S1S2, no murmur, positive posterior tibial pulses bilaterally, and cap refill < 2 seconds. Lungs: Respirations even, regular, and unlabored on room air. Lungs CTA bilaterally, no rhonchi, no rales, no wheezing, and no accessory muscle usage. Abdominal: Severely Distended ascitic abdomen. Patient reports moderate rectal prolapse upon standing, retracted while sitting and lying Ext: ROM intact. No gross muscle atrophy, 3+ pitting bilateral lower extremity edema, no contractures. Open wounds left lower extremity seeping serous fluid. Neuro: Speech clear, face symmetrical and CN II-XII grossly intact with no noted focal neuro deficits Psych: Alert and oriented to person, place, time, and situation. Appropriate and pleasant affect. Assessment and Plan of Care: Cirrhosis with severe ascites, possible alcohol-induced cirrhosis vs liver mass Elevated liver enzymes secondary to above Severe protein calorie malnutrition Normocytic anemia, likely secondary to liver cirrhosis. -MELD-Na [place] is 14 points with a less then 2% estimated 90 day mortality based upon elevated INR 1.2, sodium 134, creatinine 0.43, and liver profile showing normal bilirubin of 1.1, AST of 61, ALT of 20, an alkaline phosphatase of 210. -CT abdomen and pelvis with contrast was completed and radiology report reviewed showing massive abdominal ascites fluid with changes in the liver consistent with cirrhosis, sigmoid diverticulosis without diverticulitis, a cystocele, s mall left fluid containing inguinal hernia, perirectal hernia containing ascites fluid, and poorly marginated hypodensities in the superior and inferior right lobes of the liver possibly secondary to fatty infiltrate however liver mass cannot be entirely excluded. -Hepatitis panel pending. -Order placed for liver ultrasound to further evaluate and rule out liver mass. -Interventional radiology was consulted for diagnostic paracentesis. -Order placed for consult to digital learning platforms manager and discussed plan of care with gastroenterology ANGLE SHEAR OPERATOR. -Order placed for repeat CBC and CMP to follow up hemogclosely and monitor lobin and liver enzymes -Order placed for protein supplement, primary protein 3 times daily between meals. Hypomagnesemia -Magnesium 1.2, replaced in the ER. -Order placed for repeat magnesium level and will follow-up on results and replace abnormal electrolyte abnormalities as indicated. Rectal prolapse -Gen. surgery consulted. COPD with continued nicotine dependence, not in acute exacerbation -Patient counseled on importance of smoking cessation and risks of continued use. -Order placed for nicotine patch 21 mg every 24 hours this patient reports s moking one pack of cigarettes daily or more. CODE STATUS: Full code DVT prophylaxis: SCDs Discussed with: patient, gastroenterology ANGLE SHEAR OPERATOR, and RN Anticipated discharge date: clinical course to determine Anticipated discharge place: home Patient was seen independently by Nurse Pracitioner. This document was prepared using [employer] dictation software. Please allow for errors in examination scorer, while rare they do occur. Roverto Castillo NP rendered care for this patient independently, reviewed the findings and plan as documented in the note above. I did not physically speak with or examine the patient on this date. Objective - Vital Signs Vital signs: Vital Signs Temp 98.1 F 12/10/22 21:30 Pulse 94 12/11/22 07:31 Resp 16 12/11/22 07:31 BP 119/95 12/11/22 07:31 Pulse Ox 100 12/11/22 07:31 FiO2 Intake & Output 12/10/22 12/11/22 12/11/22 18:59 06:59 18:59 Output Total 1000 Balance -1000 Weight 47.627 kg Output: Urine 1000 - Labs CBC & Chem 7: 12/11/22 10:14 12/11/22 10:14 Labs: Abnormal Lab Results - Last 24 Hours (Table) 12/10/22 12/10/22 12/10/22 Range/Units 21:52 21:52 22:36 WBC 14.1 H (3.8-10.6) k/uL RBC 3.34 L (3.80-5.40) m/uL Hgb 10.7 L (11.4-16.0) gm/dL Hct 32.6 L (34.0-46.0) % Neutrophils # 10.9 H (1.3-7.7) k/uL PT 12.3 H (9.0-12.0) sec INR 1.2 H (<1.2) Sodium 134 L (137-145) mmol/L Creatinine 0.43 L (0.52-1.04) mg/dL Calcium 8.0 L (8.4-10.2) mg/dL Magnesium 1.2 L (1.6-2.3) mg/dL AST 61 H (14-36) U/L Alkaline Phosphatase 210 H (38-126) U/L Total Protein 6.1 L (6.3-8.2) g/dL Albumin 2.6 L (3.5-5.0) g/dL Urine Nitrite (Negative) Ur Leukocyte Esterase (Negative) Urine Bacteria (None) /hpf Urine Mucus (None) /hpf 12/11/22 Range/Units 08:31 WBC (3.8-10.6) k/uL RBC (3.80-5.40) m/uL Hgb (11.4-16.0) gm/dL Hct (34.0-46.0) % Neutrophils # (1.3-7.7) k/uL PT (9.0-12.0) sec INR (<1.2) Sodium (137-145) mmol/L Creatinine (0.52-1.04) mg/dL Calcium (8.4-10.2) mg/dL Magnesium (1.6-2.3) mg/dL AST (14-36) U/L Alkaline Phosphatase (38-126) U/L Total Protein (6.3-8.2) g/dL Albumin (3.5-5.0) g/dL Urine Nitrite Positive H (Negative) Ur Leukocyte Esterase Small H (Negative) Urine Bacteria Occasional H (None) /hpf Urine Mucus Rare H (None) /hpf
[2022-12-11 10:56] LABS: ALT 20 U/L (4-34); AST 62 U/L (14-36); African American GFR (CKD) >90 (>60 ml/min/1.73 sqM); Albumin 2.4 g/dL (3.5-5.0); Albumin/Globulin Ratio 0.7; Alkaline Phosphatase 200 U/L (38-126); Anion Gap 5 mmol/L; Blood Urea Nitrogen 10 mg/dL (7-17); Calcium 7.4 mg/dL (8.4-10.2); Carbon Dioxide 31 mmol/L (22-30); Chloride 97 mmol/L (98-107); Globulin 3.4 g/dL; Glucose 82 mg/dL (74-99); Magnesium 1.6 mg/dL (1.6-2.3); Non-African American GFR(CKD) >90 (>60 ml/min/1.73 sqM); Potassium 2.9 mmol/L (3.5-5.1); Sodium 133 mmol/L (137-145); Total Protein 5.8 g/dL (6.3-8.2)
--- NOTE | 2022-12-11 13:35 | P.CONS ---
History of Present Illness - Reason for Consult Consult date: 12/11/22 Cirrhosis Requesting physician: Roverto Castillo - Chief Complaint Abdominal distention, lower extremity swelling - History of Present Illness This is 67-year-old female with a past medical history of COPD and alcohol abuse who presented to the emergency department with complaints of abdominal distention and lower extremity swelling and weeping of her skin. Patient states she has not followed up with any physician since before coated. States she has been a heavy drinker for likely greater than 10-20 years. States it has been off and on, she has been in rehab twice. States she is not drinking heavily anymore and drinks 2-3 cocktails in the evenings at least 3 days a week with some friends. She denies any previous history of cirrhosis of the liver, no previous paracentesis. Patient was also complaining of rectal prolapse. As part of her workup she had a CT of the abdomen and pelvis with contrast and reported massive abdominal ascites fluid. Changes in liver consistent with cirrhosis. Sigmoid diverticulosis without diverticulitis. Cystocele. Small left fluid containing inguinal hernia. Perirectal hernia containing ascites fluid. Arthrosclerotic vascular disease and eczema. No discrete liver mass. There is some poorly marginated hypodensity in the superior and inferior right lobes of the liver that could be fatty infiltration. Liver mass not entirely excluded. Patient states abdominal distention began months ago along with some lower extremity edema however she has not sought any help. She does get shortness of breath and uses inhalers as needed for her COPD. She continues to smoke. She denies any chest pain, no nausea or vomiting. Admitting labs WBC 14.1 hemoglobin 10.7 hematocrit 32 platelet count 359,000 INR 1.2 sodium 134 potassium 4.0 BUN 10 creatinine 0.4 total bilirubin 1.1 AST 61 ALT 20 alkaline phosphatase 210 lipase 152 serum alcohol less than 10 Review of Systems REVIEW OF SYSTEMS: CARDIOPULMONARY: No chest pain. The patient does get some shortness of breath, cough related to COPD. Gastrointestinal: Abdominal discomfort and its distention. No nausea or vomiting. No hematemesis, coffee-ground emesis. No rectal bleeding, or melena. GENITOURINARY: No dysuria or hematuria. MUSCULOSKELETAL: Reports normal range of motion. SKIN: No rashes. No jaundice. Bilateral lower extremity edema. Left lower extremity with weeping wounds. ENDOCRINE: No chills, fevers. No excessive weight gain or loss. No polydipsia or polyuria. PSYCHIATRIC: Unremarkable. NEUROLOGY: No change in mental status. Denies dizziness, headache. ENT: Vision unremarkable. CONSTITUTIONAL: No recent weight loss. No fever, chills, night sweats. Past Medical History Past Medical History: COPD, GERD/Reflux, Hyperlipidemia, Hypertension Additional Past Medical History / Comment(s): urinary leakage,uterine prolapse History of Any Multi-Drug Resistant Organisms: None Reported Past Surgical History: Hernia Repair, Orthopedic Surgery Additional Past Surgical History / Comment(s): umbilical hernia repair,ORIF lt wrist,carpel tunnel ruby wrist,rt hand tendon repair,facial reconstruction-metal plate chin-repair mult fx around lt eye and face,teeth removed,rt cheek skin fatty tumor removed Past Anesthesia/Blood Transfusion Reactions: No Reported Reaction Additional Past Anesthesia/Blood Transfusion Reaction / Comm: no hx blood transfusion Past Psychological History: Anxiety Past Alcohol Use History: Occasional Past Drug Use History: None Reported - Past Family History Mother Family Medical History: Cancer Additional Family Medical History / Comment(s): renal cell carcinoma Father Family Medical History: Cancer Additional Family Medical History / Comment(s): brain Son(s) Family Medical History: Congestive Heart Failure (CHF), Renal Disease Additional Family Medical History / Comment(s): obesity,hemodialysis,MRSA Medications and Allergies Home Medications Medication Instructions Recorded Confirmed Type No Known Home Medications 12/10/22 12/10/22 History Allergies Allergy/AdvReac Type Severity Reaction Status Date / Time meperidine [From Demerol] Allergy Dyspnea Verified 12/10/22 21:45 Physical Exam Vitals: Vital Signs Temp Pulse Resp BP Pulse Ox 12/11/22 07:31 94 16 119/95 100 12/11/22 04:02 101 H 13 107/65 100 12/11/22 03:16 93 18 107/65 96 12/11/22 01:31 110 H 16 129/85 12/10/22 21:30 98.1 F 103 H 16 125/85 99 Intake and Output 12/10/22 12/11/22 12/11/22 22:59 06:59 14:59 Output Total 1000 Balance -1000 Output: Urine 1000 Other: Weight 47.627 kg General appearance: The patient is alert, oriented, appears in no acute distress. HET: Head is normocephalic and atraumatic. Conjunctiva pink. Sclera anicteric. Neck: Supple without lymphadenopathy. Trachea midline. Heart: S1 S2. Regular rate and rhythm. Lungs: Clear to auscultation. Abdomen: Soft, distended with ascites, mild tenderness to palpation. No rashes. No jaundice. Extremities: Normal skin color and turgor. Bilateral +2 pitting edema. Left lower extremity with weeping wound. Neurological: No focal deficits. Alert and oriented x3. Results CBC & Chem 7: 12/10/22 21:52 12/11/22 10:14 Labs: Abnormal Lab Results - Last 24 Hours (Table) 12/10/22 12/10/22 12/10/22 Range/Units 21:52 21:52 22:36 WBC 14.1 H (3.8-10.6) k/uL RBC 3.34 L (3.80-5.40) m/uL Hgb 10.7 L (11.4-16.0) gm/dL Hct 32.6 L (34.0-46.0) % Neutrophils # 10.9 H (1.3-7.7) k/uL PT 12.3 H (9.0-12.0) sec INR 1.2 H (<1.2) Sodium 134 L (137-145) mmol/L Potassium (3.5-5.1) mmol/L Chloride (98-107) mmol/L Carbon Dioxide (22-30) mmol/L Creatinine 0.43 L (0.52-1.04) mg/dL Calcium 8.0 L (8.4-10.2) mg/dL Magnesium 1.2 L (1.6-2.3) mg/dL AST 61 H (14-36) U/L Alkaline Phosphatase 210 H (38-126) U/L Total Protein 6.1 L (6.3-8.2) g/dL Albumin 2.6 L (3.5-5.0) g/dL Urine Nitrite (Negative) Ur Leukocyte Esterase (Negative) Urine Bacteria (None) /hpf Urine Mucus (None) /hpf 12/11/22 12/11/22 Range/Units 08:31 10:14 WBC (3.8-10.6) k/uL RBC (3.80-5.40) m/uL Hgb (11.4-16.0) gm/dL Hct (34.0-46.0) % Neutrophils # (1.3-7.7) k/uL PT (9.0-12.0) sec INR (<1.2) Sodium 133 L (137-145) mmol/L Potassium 2.9 L (3.5-5.1) mmol/L Chloride 97 L (98-107) mmol/L Carbon Dioxide 31 H (22-30) mmol/L Creatinine 0.50 L (0.52-1.04) mg/dL Calcium 7.4 L (8.4-10.2) mg/dL Magnesium (1.6-2.3) mg/dL AST 62 H (14-36) U/L Alkaline Phosphatase 200 H (38-126) U/L Total Protein 5.8 L (6.3-8.2) g/dL Albumin 2.4 L (3.5-5.0) g/dL Urine Nitrite Positive H (Negative) Ur Leukocyte Esterase Small H (Negative) Urine Bacteria Occasional H (None) /hpf Urine Mucus Rare H (None) /hpf Assessment and Plan (1) Cirrhosis Narrative/Plan: 67-year-old female with long-standing history of alcohol abuse admitted for abdominal distention found to have a large amount of abdominal ascites as well as lower extremity edema. This the patient has not followed with any PCP or field foreman in the past. No previous history of cirrhosis of the liver. Patient has been a heavy drinker for likely greater than 10 years with a history of rehab last in 2013 who continues to drink 2-3 hard liquor drinks at least 3 days a week. She denies any previous history of paracentesis in the past, no medications at home other than her inhaler. 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 Patient scheduled for paracentesis with fluid studies. Diuretics have been initiated per primary medicine team. Current Visit: Yes Status: Acute Code(s): K74.60 - UNSPECIFIED CIRRHOSIS OF LIVER SNOMED Code(s): 02268283 (2) Abdominal ascites Current Visit: Yes Status: Acute Code(s): R18.8 - OTHER ASCITES SNOMED Co de(s): 464088341 (3) Alcohol abuse Current Visit: Yes Status: Acute Code(s): F10.10 - ALCOHOL ABUSE, UNCOMPLICATED SNOMED Code(s): 30187910 Plan: 1. Continue symptomatic and supportive care 2. Patient may have low-sodium diet 3. Paracentesis ordered, with fluid studies and cytology 4. Daily CBC, CMP 5. Ultrasound of liver ordered per medicine team 6. Lasix 20 mg every 12 hours ordered per primary medicine team will add spir onolactone 100 mg daily 7. Hepatitis panel pending 8. Alcohol abstinence 9. Patient to follow-up with gastroenterology upon discharge Thank you for this consultation, we will continue to follow. Dr. Tarsha Russell I agree with the dictator's note, documented as a scribe by Jackie Mars.
[2022-12-11 14:22] LABS: HCT 29.9 % (37.2-46.3); HGB 9.5 g/dL (12.0-15.0); MCH 31.6 pg (27.0-32.0); MCHC 31.8 g/dL (32.0-37.0); MCV 99.3 fL (80.0-97.0); Mean Platelet Volume 9.7 fL (9.5-12.2); NRBC Per 100 WBC 0 /100 WBCS (0.0-0.0); Platelet Count 363 X 10*3/uL (140-440); RBC 3.01 X 10*6/uL (4.10-5.20); WBC 17.64 X 10*3/uL (4.50-10.00)
--- NOTE | 2022-12-11 14:23 | P.GSCN ---
History of Present Illness Consult date: 12/11/22 History of present illness: CHIEF COMPLAINT: Abdominal distention bilateral lower extremity edema HISTORY OF PRESENT ILLNESS: This is a 67-year-old female who presented to the hospital with complaints of abdominal distention and bilateral lower extremity edema. She has had difficulty with ambulating. Patient doesn't known history of heavy alcohol use. She continues to drink about 2-3 cocktails daily. Patient also complaining of rectal prolapse. She reports that she's been doing with this for about 6 weeks. She is able to push the prolapse back in. She reports that she notes the prolapse when she stands up. She also reports difficulty with constipation. Patient has evidence of liver cirrhosis and abdominal ascites on CAT scan. She is scheduled for paracentesis today. Past surgical history does include a hysterectomy and umbilical hernia repair. See aquiles is followed by GI service during this admission. PAST MEDICAL HISTORY: See below PAST SURGICAL HISTORY: See below MEDICATIONS: See below ALLERGIES: See below SOCIAL HISTORY: No illicit drug use. REVIEW OF SYSTEMS: CONSTITUTIONAL: Denies fever or chills. HEENT: Denies blurred vision, vision changes, or eye pain. Denies hemoptysis CARDIOVASCULAR: Denies chest pain or pressure. RESPIRATORY: No shortness of breath. GASTROINTESTINAL: See HPI for pertinent findings HEMATOLOGIC: Denies bleeding disorders. GENITOURINARY: Denies any blood in urine or increased urinary frequency. SKIN: Denies pruitis. Denies rash. PHYSICAL EXAM: VITAL SIGNS: Reviewed GENERAL: Well-developed in no acute distress. HEENT: No sclera icterus. Extraocular movements grossly intact. Moist buccal mucosa. Head is atraumatic, normocephalic. No nasal drainage. ABDOMEN: Distended abdomen with fluid wave and ascites noted NEUROLOGIC: Alert and oriented. Cranial nerves II through XII grossly intact. Extremities: Bilateral lower extremity edema with weeping wounds on left leg Rectal exam: No evidence of prolapse at this time. LABORATORY DATA: WBC 14.1 hgb 10.7 platelets 359 Sodium 133 potassium is 2.9 creatinine 0.50 Total bilirubin 1.0 AST 62 ALT 20 alk phos 200 Ammonia less than 9 Serum alcohol level less than 10 IMAGING: Computed tomography scan abdomen and pelvis massive abdominal ascites fluid. Changes in liver consistent with cirrhosis. Sigmoid diverticulosis without diverticulitis. Cystocele. Small left fluid containing inguinal hernia. There is also perirectal hernia containing ascites fluid. Atherosclerotic vascular disease. Emphysema. No discrete liver masses. There is some poorly marginated hypodensity in the superior and inferior right lobes of the liver that could be a fatty infiltration. Liver mass not Excluded. ASSESSMENT: 1. Rectal prolapse 2. Perirectal hernia containing ascites fluid 3. Abdominal ascites 4. Alcohol liver cirrhosis 5. Daily alcohol use PLAN: -Continue to observe -Patient scheduled for paracentesis today for abdominal ascites -Continue supportive care -Continue diuresing -Continue heart healthy diet -Further recommendations forthcoming per surgeon. Physician Cafe Lead note has been reviewed by physician. Signing provider agrees with the documented findings, assessment, and plan of care. Past Medical History Past Medical History: COPD, GERD/Reflux, Hyperlipidemia, Hypertension Additional Past Medical History / Comment(s): urinary leakage,uterine prolapse History of Any Multi-Drug Resistant Organisms: None Reported Past Surgical History: Hernia Repair, Orthopedic Surgery Additional Past Surgical History / Comment(s): umbilical hernia repair,ORIF lt wrist,carpel tunnel ruby wrist,rt hand tendon repair,facial reconstruction-metal plate chin-repair mult fx around lt eye and face,teeth removed,rt cheek skin fatty tumor removed Past Anesthesia/Blood Transfusion Reactions: No Reported Reaction Additional Past Anesthesia/Blood Transfusion Reaction / Comm: no hx blood transfusion Past Psychological History: Anxiety Past Alcohol Use History: Occasional Past Drug Use History: None Reported - Past Family History Mother Family Medical History: Cancer Additional Family Medical History / Comment(s): renal cell carcinoma Father Family Medical History: Cancer Additional Family Medical History / Comment(s): brain Son(s) Family Medical History: Congestive Heart Failure (CHF), Renal Disease Additional Family Medical History / Comment(s): obesity,hemodialysis,MRSA Medications and Allergies Home Medications Medication Instructions Recorded Confirmed Type No Known Home Medications 12/10/22 12/10/22 History Allergies Allergy/AdvReac Type Severity Reaction Status Date / Time meperidine [From Demerol] Allergy Dyspnea Verified 12/10/22 21:45 Surgical - Exam Vital Signs Temp Pulse Resp BP Pulse Ox 98.1 F 103 H 16 125/85 99 12/10/22 21:30 12/10/22 21:30 12/10/22 21:30 12/10/22 21:30 12/10/22 21:30 Results - Labs 12/10/22 21:52 12/11/22 10:14 Abnormal Lab Results - Last 24 Hours (Table) 12/10/22 12/10/22 12/10/22 Range/Units 21:52 21:52 22:36 WBC 14.1 H (3.8-10.6) k/uL RBC 3.34 L (3.80-5.40) m/uL Hgb 10.7 L (11.4-16.0) gm/dL Hct 32.6 L (34.0-46.0) % Neutrophils # 10.9 H (1.3-7.7) k/uL PT 12.3 H (9.0-12.0) sec INR 1.2 H (<1.2) Sodium 134 L (137-145) mmol/L Potassium (3.5-5.1) mmol/L Chloride (98-107) mmol/L Carbon Dioxide (22-30) mmol/L Creatinine 0.43 L (0.52-1.04) mg/dL Calcium 8.0 L (8.4-10.2) mg/dL Magnesium 1.2 L (1.6-2.3) mg/dL AST 61 H (14-36) U/L Alkaline Phosphatase 210 H (38-126) U/L Total Protein 6.1 L (6.3-8.2) g/dL Albumin 2.6 L (3.5-5.0) g/dL Urine Nitrite (Negative) Ur Leukocyte Esterase (Negative) Urine Bacteria (None) /hpf Urine Mucus (None) /hpf 12/11/22 12/11/22 Range/Units 08:31 10:14 WBC (3.8-10.6) k/uL RBC (3.80-5.40) m/uL Hgb (11.4-16.0) gm/dL Hct (34.0-46.0) % Neutrophils # (1.3-7.7) k/uL PT (9.0-12.0) sec INR (<1.2) Sodium 133 L (137-145) mmol/L Potassium 2.9 L (3.5-5.1) mmol/L Chloride 97 L (98-107) mmol/L Carbon Dioxide 31 H (22-30) mmol/L Creatinine 0.50 L (0.52-1.04) mg/dL Calcium 7.4 L (8.4-10.2) mg/dL Magnesium (1.6-2.3) mg/dL AST 62 H (14-36) U/L Alkaline Phosphatase 200 H (38-126) U/L Total Protein 5.8 L (6.3-8.2) g/dL Albumin 2.4 L (3.5-5.0) g/dL Urine Nitrite Positive H (Negative) Ur Leukocyte Esterase Small H (Negative) Urine Bacteria Occasional H (None) /hpf Urine Mucus Rare H (None) /hpf Diabetes panel 12/10/22 12/11/22 Range/Units 21:52 10:14 Sodium 134 L 133 L (137-145) mmol/L Potassium 4.0 2.9 L (3.5-5.1) mmol/L Chloride 104 97 L (98-107) mmol/L Carbon Dioxide 28 31 H (22-30) mmol/L BUN 10 10 (7-17) mg/dL Creatinine 0.43 L 0.50 L (0.52-1.04) mg/dL Glucose 82 82 (74-99) mg/dL Calcium 8.0 L 7.4 L (8.4-10.2) mg/dL AST 61 H 62 H (14-36) U/L ALT 20 20 (4-34) U/L Alkaline Phosphatase 210 H 200 H (38-126) U/L Total Protein 6.1 L 5.8 L (6.3-8.2) g/dL Albumin 2.6 L 2.4 L (3.5-5.0) g/dL Calcium panel 12/10/22 12/11/22 Range/Units 21:52 10:14 Calcium 8.0 L 7.4 L (8.4-10.2) mg/dL Albumin 2.6 L 2.4 L (3.5-5.0) g/dL Pituitary panel 12/10/22 12/11/22 Range/Units 21:52 10:14 Sodium 134 L 133 L (137-145) mmol/L Potassium 4.0 2.9 L (3.5-5.1) mmol/L Chloride 104 97 L (98-107) mmol/L Carbon Dioxide 28 31 H (22-30) mmol/L BUN 10 10 (7-17) mg/dL Creatinine 0.43 L 0.50 L (0.52-1.04) mg/dL Glucose 82 82 (74-99) mg/dL Calcium 8.0 L 7.4 L (8.4-10.2) mg/dL Adrenal panel 12/10/22 12/11/22 Range/Units 21:52 10:14 Sodium 134 L 133 L (137-145) mmol/L Potassium 4.0 2.9 L (3.5-5.1) mmol/L Chloride 104 97 L (98-107) mmol/L Carbon Dioxide 28 31 H (22-30) mmol/L BUN 10 10 (7-17) mg/dL Creatinine 0.43 L 0.50 L (0.52-1.04) mg/dL Glucose 82 82 (74-99) mg/dL Calcium 8.0 L 7.4 L (8.4-10.2) mg/dL Total Bilirubin 1.1 1.0 (0.2-1.3) mg/dL AST 61 H 62 H (14-36) U/L ALT 20 20 (4-34) U/L Alkaline Phosphatase 210 H 200 H (38-126) U/L Total Protein 6.1 L 5.8 L (6.3-8.2) g/dL Albumin 2.6 L 2.4 L (3.5-5.0) g/dL
--- NOTE | 2022-12-11 15:05 | US ---
EXAMINATION TYPE: US liver DATE OF EXAM: 12/11/2022 COMPARISON: CT abdomen pelvis 12/10/2022 CLINICAL HISTORY: rule out liver mass hypodensity R sup/infer lobes. Cirrhosis ascites. TECHNIQUE: Multiple sonographic images of the right upper quadrant are obtained. FINDINGS: EXAM MEASUREMENTS: Liver Length: 16.4 cm Gallbladder Wall: .3 cm CBD: .6 cm Right Kidney: 10.6 x 3.3 x 4.1 cm AUGER OPERATOR NOTES: Pancreas: Obscured by bowel gas Liver: Lobulated heterogenous ascites Gallbladder:No stones seen. Evidence for sonographic Art's sign: No CBD: wnl Right Kidney: No hydronephrosis or masses seen The pancreas is obscured by overlying bowel gas. Liver demonstrates a cirrhotic appearance with surfa ce nodularity and heterogenous appearance. No discrete focal hepatic lesion identified. No cholelithi asis identified involving the gallbladder. Per button pusher, negative sonographic Art sign. Common bile duct within normal limits. The right kidney is within normal limits without evidence of hydronep hrosis, solid mass, or nephrolithiasis. Small amount of perihepatic ascites identified. IMPRESSION: 1. Hepatic cirrhosis without discrete focal lesion identified. Consider further evaluation with MRI abdomen liver mass protocol if there is concern for hepatic lesions. 2. Small volume perihepatic ascites.
[2022-12-11 15:17] LABS: Basophils # (A) 0.08 X 10*3/uL (0.00-0.10); Basophils % (A) 0.5 %; Eosinophils # (A) 0.23 X 10*3/uL (0.04-0.35); Eosinophils % (A) 1.3 %; Immature Grans, Automated 0.6 %; Lymphocytes # (A) 2.12 X 10*3/uL (0.90-5.00); Monocytes % (A) 9.1 %; Neutrophils # (A) 13.51 X 10*3/uL (1.80-7.70); Neutrophils % (A) 76.5 %
[2022-12-11 15:46] LABS: Hepatitis A Antibody IgM Nonreactive (Nonreactive); Hepatitis B Core IgM Nonreactive (Nonreactive); Hepatitis B Surface Antigen Nonreactive (Nonreactive); Hepatitis C IgG Antibody Nonreactive (Nonreactive)
--- NOTE | 2022-12-11 15:54 | US ---
Ultrasound-guided paracentesis. DATE OF EXAM: 12/11/2022 CLINICAL HISTORY: Ascites The procedure was discussed with the patient. The risks, complications, benefits, and alternatives we re discussed and any questions were answered. Informed consent was obtained. The patient was placed s upine on the ultrasound table and prepped and draped in the usual sterile fashion. All elements of maximal barrier technique were utilized. Under ultrasound guidance, access into the right lower quadrant was obtained, via the paracentesis catheter system and direct ultrasound guidanc e. Approximately 1.2 liters of straw-colored fluid was removed. The patient was stable throughout the pr ocedure and remained stable upon discharge from Department of Radiology. IMPRESSION: Successful paracentesis under ultrasound guidance.
[2022-12-11] MEDS ORDERED: POTASSIUM CHLORIDE ER 20 MEQ TAB.ER PO STA (16:53)
[2022-12-11 21:04] LABS: Appearance,BF Slightly Hazy
[2022-12-11 22:10] LABS: Albumin, Fluid Source Ascites; T. Protein, Body Fluid Source Ascites; Total Protein, Body Fluid 855 mg/dL
[2022-12-12 09:07] LABS: HCT 27.6 % (37.2-46.3); MCH 31.3 pg (27.0-32.0); MCHC 32.6 g/dL (32.0-37.0); MCV 95.8 fL (80.0-97.0); Mean Platelet Volume 9.3 fL (9.5-12.2); NRBC Per 100 WBC 0 /100 WBCS (0.0-0.0); Platelet Count 366 X 10*3/uL (140-440); RBC 2.88 X 10*6/uL (4.10-5.20); WBC 15.67 X 10*3/uL (4.50-10.00)
[2022-12-12 09:24] LABS: African American GFR (CKD) 111.8 (60.0-200.0); Albumin 2.4 g/dL (3.8-4.9); Albumin/Globulin Ratio 0.85 (1.60-3.17); Anion Gap 10.1 mmol/L (10.00-18.00); BUN/Creat Ratio 17.45 Ratio (12.00-20.00); Blood Urea Nitrogen 9.4 mg/dL (9.0-27.0); Calcium 7.7 mg/dL (8.7-10.3); Carbon Dioxide 25.5 mmol/L (20.0-27.5); Globulin 2.8 g/dL (1.6-3.3); Magnesium 1.7 mg/dL (1.5-2.4); Non-African American GFR(CKD) 96.5 (60.0-200.0); Potassium 3.3 mmol/L (3.5-5.5); Total Bilirubin 0.8 mg/dL (0.30-1.20); Total Protein 5.2 g/dL (6.2-8.2)
[2022-12-12] MEDS: NICOTINE 21MG/24HR PATCH TRANSDERM SCH (10:08)
[2022-12-12] MEDS: SPIRONOLACTONE 25 MG TAB PO SCH (10:09)
[2022-12-12] MEDS: FUROSEMIDE 10 MG/ML 2 ML VIAL IV SCH ×2 (10:10→20:41)
--- NOTE | 2022-12-12 12:14 | P.PN ---
Subjective Progress Note Date: 12/12/22 Principal diagnosis: Liver cirrhosis, ascites This is 67-year-old female with a past medical history of COPD and alcohol abuse who presented to the emergency department with complaints of abdominal distention and lower extremity swelling and weeping of her skin. Patient states she has not followed up with any physician since before coated. States she has been a heavy drinker for likely greater than 10-20 years. States it has been off and on, she has been in rehab twice. States she is not drinking heavily anymore and drinks 2-3 cocktails in the evenings at least 3 days a week with some friends. She denies any previous history of cirrhosis of the liver, no previous paracentesis. Patient was also complaining of rectal prolapse. As part of her workup she had a CT of the abdomen and pelvis with contrast and reported massive abdominal ascites fluid. Changes in liver consistent with cirrhosis. Sigmoid diverticulosis without diverticulitis. Cystocele. Small left fluid containing inguinal hernia. Perirectal hernia containing ascites fluid. Arthrosclerotic vascular disease and eczema. No discrete liver mass. There is some poorly marginated hypodensity in the superior and inferior right lobes of the liver that could be fatty infiltration. Liver mass not entirely excluded. Patient states abdominal distention began months ago along with some lower extremity edema however she has not sought any help. She does get shortness of breath and uses inhalers as needed for her COPD. She continues to smoke. She denies any chest pain, no nausea or vomiting. Has had weight loss over the last 1 year, unsure exactly how much, however states due to decreased appetite. Admitting labs WBC 14.1 hemoglobin 10.7 hematocrit 32 platelet count 359,000 INR 1.2 sodium 134 potassium 4.0 BUN 10 creatinine 0.4 total bilirubin 1.1 AST 61 ALT 20 alkaline phosphatase 210 lipase 152 serum alcohol less than 10 12/12/2022: Patient was seen and examined today for follow-up. Yesterday she underwent paracentesis with 1.2 L of fluid removed. Fluid sent for cytology and fluid studies. Patient states she's feeling much better today. She is awaiting evaluation recommendation from general surgery prolapsed rectum. She is denying any abdominal pain, no nausea or vomiting. She's been afebrile. Yesterday white count did increase to 17.6 with a repeat today of 15.6. Ascites Fluid protein and albumin consistent with underlying liver disease. Hepatitis acute panel nonreactive. Liver ultrasound reported hepatic cirrhosis without discrete focal lesion identified. Consider further evaluation with MRI abdomen liver mass protocol if there is concern for hepatic lesion. Small volume perihepatic ascites. Objective - Vital Signs Vital signs: Vital Signs Temp 98.1 F 12/10/22 21:30 Pulse 111 H 12/11/22 22:05 Resp 16 12/11/22 22:00 BP 104/60 12/12/22 01:56 Pulse Ox 93 L 12/12/22 00:00 FiO2 - Exam General appearance: The patient is alert, oriented, appears in no acute distress. HET: Head is normocephalic and atraumatic. Conjunctiva pink. Sclera anicteric. Neck: Supple without lymphadenopathy. Abdomen: Soft, nontender, nondistended with bowel sounds. No guarding or rigidity. Extremities: Normal skin color and turgor. Bilateral lower extremity pitting edema. Skin: No rashes, no jaundice Neurological: No focal deficits. Alert and oriented. - Labs CBC & Chem 7: 12/12/22 04:39 12/12/22 04:39 Labs: Abnormal Lab Results - Last 24 Hours (Table) 12/11/22 12/11/22 12/11/22 Range/Units 08:31 10:14 10:14 WBC 17.64 H (4.50-10.00) X 10*3/uL RBC 3.01 L (4.10-5.20) X 10*6/uL Hgb 9.5 L (12.0-15.0) g/dL Hct 29.9 L (37.2-46.3) % MCV 99.3 H (80.0-97.0) fL MCHC 31.8 L (32.0-37.0) g/dL Immature Gran # 0.10 H (0.00-0.04) X 10*3/uL Neutrophils # 13.51 H (1.80-7.70) X 10*3/uL Monocytes # 1.60 H (0.20-1.00) X 10*3/uL Sodium 133 L (137-145) mmol/L Potassium 2.9 L (3.5-5.1) mmol/L Chloride 97 L (98-107) mmol/L Carbon Dioxide 31 H (22-30) mmol/L Creatinine 0.50 L (0.52-1.04) mg/dL Calcium 7.4 L (8.4-10.2) mg/dL AST 62 H (14-36) U/L Alkaline Phosphatase 200 H (38-126) U/L Total Protein 5.8 L (6.3-8.2) g/dL Albumin 2.4 L (3.5-5.0) g/dL Urine Nitrite Positive H (Negative) Ur Leukocyte Esterase Small H (Negative) Urine Bacteria Occasional H (None) /hpf Urine Mucus Rare H (None) /hpf Microbiology - Last 24 Hours (Table) 12/11/22 14:18 Gram Stain - Preliminary Ascites Fluid Body Fluid Culture - Preliminary 12/11/22 14:18 Anaerobic Culture - Preliminary Ascites Fluid Assessment and Plan (1) Cirrhosis Narrative/Plan: 67-year-old female with long-standing history of alcohol abuse admitted for abdominal distention found to have a large amount of abdominal ascites as well as lower extremity edema. This the patient has not followed with any PCP or casino duty manager in the past. No previous history of cirrhosis of the liver. Patient has been a heavy drinker for likely greater than 10 years with a history of rehab last in 2013 who continues to drink 2-3 hard liquor drinks at least 3 days a week. She denies any previous history of paracentesis in the past, no medications at home other than her inhaler. 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 Patient scheduled for paracentesis with fluid studies. Diuretics have been initiated per primary medicine team. Current Visit: Yes Status: Acute Code(s): K74.60 - UNSPECIFIED CIRRHOSIS OF LIVER SNOMED Code(s): 11537631 (2) Abdominal ascites Narrative/Plan: Status post paracentesis with 1.2 L fluid removed. Fluid studies consistent with underlying liver disease, fluid albumin and protein consistent with portal hypertension. Awaiting fluid culture and cytology. Patient with leukocytosis, abdominal tenderness. Consider spontaneous bacterial peritonitis, will start on Rocephin and await fluid cultures. Current Visit: Yes Status: Acute Code(s): R18.8 - OTHER ASCITES SNOMED Code(s): 477237520 (3) Alcohol abuse Current Visit: Yes Status: Acute Code(s): F10.10 - ALCOHOL ABUSE, UNCOMPLICATED SNOMED Code(s): 39369487 (4) Leukocytosis Narrative/Plan: Patient with positive nitrates and urine, WBC trending up since admission, consider possible SBP versus UTI. Will start IV Rocephin. Current Visit: Yes Status: Acute Code(s): D72.829 - ELEVATED WHITE BLOOD CELL COUNT, UNSPECIFIED SNOMED Code(s): 303240526 Plan: 1. Continue symptomatic and supportive care 2. Patient may have low sodium diet 3. Replace potassium per protocol 4. Alpha-fetoprotein tumor marker ordered 5. Liver ultrasound reviewed, no lesions noted. Can consider outpatient MRI of liver 6. Rocephin 1 g every 24 for possible SBP 7. Continue diuretics, recommend Lasix 40 mg daily and spironolactone 100 mg daily 8. Alcohol cessation, discussed with patient again on importance of alcohol cessation with underlying cirrhosis of the liver. Patient verbalized understanding. 9. Outpatient follow-up with gastroenterology in the next 1-2 weeks. Thank you for this consultation, we will continue to follow. Dr. Tarsha Russell I agree with the dictator's note, documented as a scribe by Jackie Mars.
--- NOTE | 2022-12-12 14:18 | P.PN ---
Subjective Progress Note Date: 12/12/22 CHIEF COMPLAINT: Rectal prolapse HISTORY OF PRESENT ILLNESS: Patient currently admitted to the hospital with abdominal distention with evidence of abdominal ascites. She status post paracentesis with 1.2 L removed. Patient reports improvement in her abdominal distention and lower extremity edema. She's also on diuretics. Her rectal prolapse is currently reduced. She denies any pain around the anal area. Denies abdominal pain. Denies any nausea or vomiting. Liver ultrasound hepatic cirrhosis without discrete focal lesion identified. Consider further evaluation of MRI of abdomen liver mass protocol. Patient followed by GI service. Afebrile. Mildly tachycardic. WBC 17-15.67 Hgb 9.0 platelets 366 signs 135 potassium 3.3 creatinine 0.5 magnesium 1.7 total bili 0.8 AST 53 ALT 17 alk phos 181 Patient seen and examined with Dr. ballard PHYSICAL EXAM: VITAL SIGNS: Reviewed. GENERAL: Well-developed in no acute distress. HEENT: No sclera icterus. Extraocular movements grossly intact. Moist buccal mucosa. Head is atraumatic, normocephalic. ABDOMEN: Soft. Mildly distended. Nontender. NEUROLOGIC: Alert and oriented. Cranial nerves II through XII grossly intact. Extremities: Bilateral lower extremity edema ASSESSMENT: 1. Rectal prolapse 2. Perirectal hernia containing ascites fluid 3. Abdominal ascites 4. Alcohol liver cirrhosis 5. Daily alcohol use PLAN: -No surgical intervention planned at this time -Recommend outpatient colonoscopy -Patient is considered a high risk surgical candidate due to her liver cirrhosis and ascites -Continue supportive care Physician Field Marketing Lead note has been reviewed by physician. Signing provider agrees with the documented findings, assessment, and plan of care. Objective - Vital Signs Vital signs: Vital Signs Temp 98.1 F 12/10/22 21:30 Pulse 115 H 12/12/22 10:09 Resp 18 12/12/22 10:09 BP 102/57 12/12/22 10:09 Pulse Ox 97 12/12/22 10:09 FiO2 - Labs CBC & Chem 7: 12/12/22 04:39 12/12/22 04:39 Labs: Abnormal Lab Results - Last 24 Hours (Table) 12/11/22 12/12/22 12/12/22 Range/Units 10:14 04:39 04:39 WBC 17.64 H 15.67 H (4.50-10.00) X 10*3/uL RBC 3.01 L 2.88 L (4.10-5.20) X 10*6/uL Hgb 9.5 L 9.0 L (12.0-15.0) g/dL Hct 29.9 L 27.6 L (37.2-46.3) % MCV 99.3 H (80.0-97.0) fL MCHC 31.8 L (32.0-37.0) g/dL MPV 9.3 L (9.5-12.2) fL Immature Gran # 0.10 H (0.00-0.04) X 10*3/uL Neutrophils # 13.51 H (1.80-7.70) X 10*3/uL Monocytes # 1.60 H (0.20-1.00) X 10*3/uL Potassium 3.3 L (3.5-5.5) mmol/L Creatinine 0.5 L (0.6-1.5) mg/dL Calcium 7.7 L (8.7-10.3) mg/dL AST 53 H (13-35) U/L Alkaline Phosphatase 181 H (41-126) U/L Total Protein 5.2 L (6.2-8.2) g/dL Albumin 2.4 L (3.8-4.9) g/dL Albumin/Globulin Ratio 0.85 L (1.60-3.17) g/dL Microbiology - Last 24 Hours (Table) 12/11/22 14:18 Gram Stain - Preliminary Ascites Fluid Body Fluid Culture - Preliminary 12/11/22 14:18 Anaerobic Culture - Preliminary Ascites Fluid
[2022-12-12] MEDS ORDERED: POTASSIUM CHLORIDE ER 20 MEQ TAB.ER PO STA (15:32)
--- NOTE | 2022-12-12 16:01 | P.PN ---
Subjective Progress Note Date: 12/12/22 Hospital course: Patient is a very pleasant 67-year-old female with a past medical history of COPD with continued nicotine dependence, daily alcohol use/abuse, and uterine and rectal prolapse. She presented to the emergency department on the evening of 12/10/22 with her daughter for evaluation of significant weight loss and increased abdominal distention and lower extremity edema progressively worsening over the past year and does not follow with a primary care doctor. Patient also reporting in addition to her rectal prolapse has gotten significantly worse and states her rectum/intestines "fall out" anytime she stands up or walks. Patient underwent full evaluation in the emergency department. Chest x-ray completed showing evidence of COPD but negative for acute intercranial process. EKG showing sinus mechanism at 89 bpm with no noted T-wave or ST abnormalities upon personal review and interpretation. Labs completed and reviewed. CBC showing leukocytosis with WBC count of 14.1 and normocytic anemia with hemoglobin of 10.7. Coagulation profile revealing an elevated PT of 12.3 and INR of 1.2. BMP revealing mild hyponatremia with sodium of 134 and a creatinine of 0.43. Calcium 8.0, however corrected calcium of 9.1 due to hypoalbuminemia with albumin of 2.6. Liver profile showing normal bilirubin of 1.1, AST of 61, ALT of 20, and alkaline phosphatase of 210. Magnesium 1.2 and was replaced in the emergency department. CT abdomen and pelvis with contrast was completed showing massive abdominal ascites fluid with changes in the liver consistent with cirrhosis, sigmoid diverticulosis without diverticulitis, a cystocele, small left fluid containing inguinal hernia, perirectal hernia containing ascites fluid, and poorly marginated hypodensities in the superior and inferior right lobes of the liver possibly secondary to fatty infiltrate however liver mass cannot be entirely excluded. Patient was admitted under our services with consultation to general surgery and gastroenterology. MELD-Na Score upon admission was 14 points with a less then 2% estimated 90 day mortality based upon elevated INR 1.2, sodium 134, creatinine 0.43, and liver profile showing normal bilirubin of 1.1, AST of 61, ALT of 20, and alkaline phosphatase of 210. Physical exam: Patient seen and fully evaluated at the bedside. She underwent paracentesis yesterday with IR resulting in removal of approximately 1.2 L of ascitic fluid. Samples sent to lab for analysis and cytology testing. Patient reports feeling much better this morning and was eating breakfast at time of assessment. She denied having any complaints or concerns at this time. Vital signs reviewed and stable. General: Cachectic appearance, appears older than her biological age, Emaciated with massive ascites Derm: Skin warm and dry, normal coloration for ethnicity. Head: Atraumatic, normocephalic and symmetric. Eyes: EOMs intact, no lid lag, and anicteric sclera Mouth: no lip lesions, mucus membranes moist Cardiovascular: regular rate and rhythm with normal S1S2, no murmur, positive posterior tibial pulses bilaterally, and cap refill < 2 seconds. Lungs: Respirations even, regular, and unlabored on room air. Lungs CTA bila terally, no rhonchi, no rales, no wheezing, and no accessory muscle usage. Abdominal: Distended ascitic abdomen. Patient reports moderate rectal prolapse upon standing, retracted while sitting and lying. Ext: ROM intact. No gross muscle atrophy, 3+ pitting bilateral lower extremity edema, no contractures. Open wounds left lower extremity seeping serous fluid. Neuro: Speech clear, face symmetrical and CN II-XII grossly intact with no noted focal neuro deficits Psych: Alert and oriented to person, place, time, and situation. Appropriate and pleasant affect. Assessment and Plan of Care: Morning labs reviewed. CBC revealing leukocytosis with WBC count of 15.67, hemoglobin 9.0, and stable platelet count of 366. BMP revealing hypokalemia with potassium of 3.3 and resolution of previously noted hyponatremia with sodium increasing from 133-135. Magnesium remains slightly low at 1.7 and liver profile showing total bili of 0.80, AST of 53, ALT 17, and alkaline phosphatase of 181. 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 -MELD-Na Score upon admission with 14 points with a less then 2% estimated 90 day mortality. -Hepatitis panel resulting nonreactive. -Liver ultrasound completed secondary to concerns of possible lesions noted on CT and ultrasound report reviewed stating hepatic cirrhosis without discrete focal lesion identified and small volume perihepatic ascites. -Interventional radiology completed diagnostic paracentesis on 12/11/22 with removal of approximately 1.2 L of fluid. -Gastroenterology following and discussed plan of care with gastroenterology TRIMMER MACHINE recommended alpha-fetoprotein tumor marker to be ordered and started patient on Rocephin 1 g IVPB every 24 hours for possible SBP. -Order placed for repeat CBC and CMP to follow up closely with hemoglobin and liver enzymes. -Patient to continue with protein supplement, Premier protein 3 times daily bet ween meals and consult placed to emergency planning and response manager. -SBP not likely as initial ascitic fluid showing only 91 WBCs. Hypomagnesemia -Morning labs reviewed. Magnesium 1.7 and order placed for magnesium sulfate 2 g IVPB. -Order placed for repeat magnesium level and will follow-up on results and replace abnormal electrolyte abnormalities as indicated. Hypokalemia -Morning labs reviewed. Potassium 3.3. Orders place for K Dur 40 mEq 1 dose. -Order placed for a repeat BMP with a.m. labs and we will follow up on results and replace abnormal electrolyte abnormalities as indicated. Rectal prolapse -Gen. surgery consulted for evaluation of rectal prolapse. COPD with continued nicotine dependence, not in acute exacerbation -Patient counseled on importance of smoking cessation and risks of continued use. -Continue Nicotine patch 21 mg every 24 hours. CODE STATUS: Full code DVT prophylaxis: SCDs Discussed with: patient, gastroenterology TRIMMER MACHINE, and RN Anticipated discharge date: clinical course to determine Anticipated discharge place: Home Patient was seen independently by Nurse Pracitioner. This document was prepared using [employer] dictation software. Please allow for errors in research manufacturing operator, while rare they do occur. Roverto Castillo NP rendered care for this patient independently, reviewed the findings and plan as documented in the note above. I did not physically speak with or examine the patient on this date. Objective - Vital Signs Vital signs: Vital Signs Temp 98.1 F 12/10/22 21:30 Pulse 111 H 12/11/22 22:05 Resp 16 12/11/22 22:00 BP 104/60 12/12/22 01:56 Pulse Ox 93 L 12/12/22 00:00 FiO2 - Labs CBC & Chem 7: 12/13/22 06:10 12/13/22 06:10 Labs: Abnormal Lab Results - Last 24 Hours (Table) 12/11/22 12/11/22 12/11/22 Range/Units 08:31 10:14 10:14 WBC 17.64 H (4.50-10.00) X 10*3/uL RBC 3.01 L (4.10-5.20) X 10*6/uL Hgb 9.5 L (12.0-15.0) g/dL Hct 29.9 L (37.2-46.3) % MCV 99.3 H (80.0-97.0) fL MCHC 31.8 L (32.0-37.0) g/dL Immature Gran # 0.10 H (0.00-0.04) X 10*3/uL Neutrophils # 13.51 H (1.80-7.70) X 10*3/uL Monocytes # 1.60 H (0.20-1.00) X 10*3/uL Sodium 133 L (137-145) mmol/L Potassium 2.9 L (3.5-5.1) mmol/L Chloride 97 L (98-107) mmol/L Carbon Dioxide 31 H (22-30) mmol/L Creatinine 0.50 L (0.52-1.04) mg/dL Calcium 7.4 L (8.4-10.2) mg/dL AST 62 H (14-36) U/L Alkaline Phosphatase 200 H (38-126) U/L Total Protein 5.8 L (6.3-8.2) g/dL Albumin 2.4 L (3.5-5.0) g/dL Urine Nitrite Positive H (Negative) Ur Leukocyte Esterase Small H (Negative) Urine Bacteria Occasional H (None) /hpf Urine Mucus Rare H (None) /hpf Microbiology - Last 24 Hours (Table) 12/11/22 14:18 Gram Stain - Preliminary Ascites Fluid Body Fluid Culture - Preliminary 12/11/22 14:18 Anaerobic Culture - Preliminary Ascites Fluid
[2022-12-12] MEDS: MAGNESIUM SULFATE-D5W PMX 1 GM in DEXTROSE/WATER 1 100ML.BAG IVPB SCH ×2 (16:51→18:32)
[2022-12-13 08:42] LABS: HCT 29.6 % (37.2-46.3); HGB 9.4 g/dL (12.0-15.0); MCH 31.1 pg (27.0-32.0); MCHC 31.8 g/dL (32.0-37.0); Mean Platelet Volume 9.4 fL (9.5-12.2); NRBC Per 100 WBC 0 /100 WBCS (0.0-0.0); Platelet Count 363 X 10*3/uL (140-440); RBC 3.02 X 10*6/uL (4.10-5.20); RDW 14.1 % (11.5-14.5); WBC 15.35 X 10*3/uL (4.50-10.00)
[2022-12-13 08:54] LABS: African American GFR (CKD) 117.8 (60.0-200.0); Albumin 2.5 g/dL (3.8-4.9); Albumin/Globulin Ratio 0.79 (1.60-3.17); Anion Gap 8.8 mmol/L (10.00-18.00); BUN/Creat Ratio 23.8 Ratio (12.00-20.00); Blood Urea Nitrogen 10.9 mg/dL (9.0-27.0); Calcium 7.9 mg/dL (8.7-10.3); Carbon Dioxide 27.8 mmol/L (20.0-27.5); Globulin 3.1 g/dL (1.6-3.3); Magnesium 1.7 mg/dL (1.5-2.4); Non-African American GFR(CKD) 101.6 (60.0-200.0); Potassium 3.7 mmol/L (3.5-5.5); Total Bilirubin 0.7 mg/dL (0.30-1.20); Total Protein 5.6 g/dL (6.2-8.2)
[2022-12-13] MEDS: SPIRONOLACTONE 25 MG TAB PO SCH (10:34)
[2022-12-13] MEDS: FUROSEMIDE 40 MG TAB PO SCH (10:35)
[2022-12-13] MEDS: NICOTINE 21MG/24HR PATCH TRANSDERM SCH (10:35)
[2022-12-13] MEDS: FUROSEMIDE 10 MG/ML 2 ML VIAL IV SCH (11:07)
[2022-12-13 11:37] VITALS: BMI 18.0
--- NOTE | 2022-12-13 13:44 | P.PN ---
Subjective Progress Note Date: 12/13/22 CHIEF COMPLAINT: Rectal prolapse HISTORY OF PRESENT ILLNESS: Patient currently admitted to the hospital with abdominal distention with evidence of abdominal ascites. She is status post paracentesis with 1.2 L removed. Patient lying in bed comfortably. No new complaints. Rectal prolapse remains reduced. No BM yet. Afebrile. WBC is 15.35 Hgb 9.4 platelets are 60 11/27/2025 potassium 0.7 creatinine 0.5 Patient seen and examined with Dr. ballard PHYSICAL EXAM: VITAL SIGNS: Reviewed. GENERAL: Well-developed in no acute distress. HEENT: No sclera icterus. Extraocular movements grossly intact. Moist buccal mucosa. Head is atraumatic, normocephalic. ABDOMEN: Soft. distended. Nontender. NEUROLOGIC: Alert and oriented. Cranial nerves II through XII grossly intact. Extremities: Bilateral lower extremity edema ASSESSMENT: 1. Rectal prolapse 2. Perirectal hernia containing ascites fluid 3. Abdominal ascites 4. Alcohol liver cirrhosis 5. Daily alcohol use PLAN: -No surgical intervention planned at this time -Recommend outpatient colonoscopy -Patient is considered a high risk surgical candidate due to her liver cirrhosis and ascites -Continue supportive care Physician Trade Economist note has been reviewed by physician. Signing provider agrees with the documented findings, assessment, and plan of care. Objective - Vital Signs Vital signs: Vital Signs Temp 98.5 F 12/13/22 12:47 Pulse 110 H 12/13/22 12:47 Resp 16 12/13/22 12:47 BP 112/71 12/13/22 12:47 Pulse Ox 96 12/13/22 12:47 FiO2 Intake & Output 12/12/22 12/13/22 12/13/22 18:59 06:59 18:59 Intake Total 318 168 Balance 318 168 Weight 47.627 kg 47.627 kg Intake: Intake, IV Titration 200 50 Amount Magnesium Sulfate-D5w Pmx 100 1 gm In Dextrose/Water 1 100ml.bag @ 100 mls/hr IVPB Q1H DONTAE Rx#: [id number] Magnesium Sulfate-D5w Pmx 100 1 gm In Dextrose/Water 1 100ml.bag @ 100 mls/hr IVPB Q1H [facility]TAE Rx#: [id number] cefTRIAXone 1 gm In 50 Sodium Chloride 0.9% 50 ml @ 100 mls/hr IVPB Q24HR [facility]TAE Rx#:[id number] Oral 118 118 Other: Voiding Method Diaper Diaper Incontinent Incontinent # Voids 2 - Labs CBC & Chem 7: 12/13/22 06:10 12/13/22 06:10 Labs: Abnormal Lab Results - Last 24 Hours (Table) 12/13/22 12/13/22 Range/Units 06:10 06:10 WBC 15.35 H (4.50-10.00) X 10*3/uL RBC 3.02 L (4.10-5.20) X 10*6/uL Hgb 9.4 L (12.0-15.0) g/dL Hct 29.6 L (37.2-46.3) % MCV 98.0 H (80.0-97.0) fL MCHC 31.8 L (32.0-37.0) g/dL MPV 9.4 L (9.5-12.2) fL Carbon Dioxide 27.8 H (20.0-27.5) mmol/L Anion Gap 8.80 L (10.00-18.00) mmol/L Creatinine 0.5 L (0.6-1.5) mg/dL BUN/Creatinine Ratio 23.80 H (12.00-20.00) Ratio Calcium 7.9 L (8.7-10.3) mg/dL AST 61 H (13-35) U/L Alkaline Phosphatase 183 H (41-126) U/L Total Protein 5.6 L (6.2-8.2) g/dL Albumin 2.5 L (3.8-4.9) g/dL Albumin/Globulin Ratio 0.79 L (1.60-3.17) g/dL Microbiology - Last 24 Hours (Table) 12/11/22 14:18 Gram Stain - Preliminary Ascites Fluid Body Fluid Culture - Preliminary
--- NOTE | 2022-12-13 14:09 | P.PN ---
Subjective Progress Note Date: 12/13/22 Principal diagnosis: Liver cirrhosis, ascites This is 67-year-old female with a past medical history of COPD and alcohol abuse who presented to the emergency department with complaints of abdominal distention and lower extremity swelling and weeping of her skin. Patient states she has not followed up with any physician since before coated. States she has been a heavy drinker for likely greater than 10-20 years. States it has been off and on, she has been in rehab twice. States she is not drinking heavily anymore and drinks 2-3 cocktails in the evenings at least 3 days a week with some friends. She denies any previous history of cirrhosis of the liver, no previous paracentesis. Patient was also complaining of rectal prolapse. As part of her workup she had a CT of the abdomen and pelvis with contrast and reported massive abdominal ascites fluid. Changes in liver consistent with cirrhosis. Sigmoid diverticulosis without diverticulitis. Cystocele. Small left fluid containing inguinal hernia. Perirectal hernia containing ascites fluid. Arthrosclerotic vascular disease and eczema. No discrete liver mass. There is some poorly marginated hypodensity in the superior and inferior right lobes of the liver that could be fatty infiltration. Liver mass not entirely excluded. Patient states abdominal distention began months ago along with some lower extremity edema however she has not sought any help. She does get shortness of breath and uses inhalers as needed for her COPD. She continues to smoke. She denies any chest pain, no nausea or vomiting. Has had weight loss over the last 1 year, unsure exactly how much, however states due to decreased appetite. Admitting labs WBC 14.1 hemoglobin 10.7 hematocrit 32 platelet count 359,000 INR 1.2 sodium 134 potassium 4.0 BUN 10 creatinine 0.4 total bilirubin 1.1 AST 61 ALT 20 alkaline phosphatase 210 lipase 152 serum alcohol less than 10 12/12/2022: Patient was seen and examined today for follow-up. Yesterday she underwent paracentesis with 1.2 L of fluid removed. Fluid sent for cytology and fluid studies. Patient states she's feeling much better today. She is awaiting evaluation recommendation from general surgery prolapsed rectum. She is denying any abdominal pain, no nausea or vomiting. She's been afebrile. Yesterday white count did increase to 17.6 with a repeat today of 15.6. Ascites Fluid protein and albumin consistent with underlying liver disease. Hepatitis acute panel nonreactive. Liver ultrasound reported hepatic cirrhosis without discrete focal lesion identified. Consider further evaluation with MRI abdomen liver mass protocol if there is concern for hepatic lesion. Small volume perihepatic ascites. 12/13/2022: Patient seen and examined today as a follow-up. States she continues to feel well. Denies any abdominal pain, no nausea or vomiting. She's been afebrile. Swelling has significantly improved in her lower extremities. WBC 15.3 hemoglobin 9.4 platelet count 363,000 total bilirubin 0.7 AST 61 ALT 17 alkaline phosphatase 183 tumor AFP 3.4. Fluid culture currently pending but no growth after 48 hours. Fluid cytology pending. Urine culture was never collected by nursing staff. Objective - Vital Signs Vital signs: Vital Signs Temp 98.5 F 12/13/22 12:47 Pulse 110 H 12/13/22 12:47 Resp 16 12/13/22 12:47 BP 112/71 12/13/22 12:47 Pulse Ox 96 12/13/22 12:47 FiO2 Intake & Output 12/12/22 12/13/22 12/13/22 18:59 06:59 18:59 Intake Total 318 168 Balance 318 168 Weight 47.627 kg 47.627 kg Intake: Intake, IV Titration 200 50 Amount Magnesium Sulfate-D5w Pmx 100 1 gm In Dextrose/Water 1 100ml.bag @ 100 mls/hr IVPB Q1H [facility] Rx#: [id number] Magnesium Sulfate-D5w Pmx 100 1 gm In Dextrose/Water 1 100ml.bag @ 100 mls/hr IVPB Q1H [facility] Rx#: [id number] cefTRIAXone 1 gm In 50 Sodium Chloride 0.9% 50 ml @ 100 mls/hr IVPB Q24HR [facility] Rx#:[id number] Oral 118 118 Other: Voiding Method Diaper Diaper Incontinent Incontinent # Voids 2 - Exam General appearance: The patient is alert, oriented, appears in no acute distress. HET: Head is normocephalic and atraumatic. Conjunctiva pink. Sclera anicteric. Neck: Supple without lymphadenopathy. Abdomen: Soft, nontender, nondistended with bowel sounds. No guarding or rigidity. Extremities: Normal skin color and turgor. Bilateral lower extremity edema improved. Skin: No rashes, no jaundice Neurological: No focal deficits. Alert and oriented. - Labs CBC & Chem 7: 12/13/22 06:10 12/13/22 06:10 Labs: Abnormal Lab Results - Last 24 Hours (Table) 12/13/22 12/13/22 Range/Units 06:10 06:10 WBC 15.35 H (4.50-10.00) X 10*3/uL RBC 3.02 L (4.10-5.20) X 10*6/uL Hgb 9.4 L (12.0-15.0) g/dL Hct 29.6 L (37.2-46.3) % MCV 98.0 H (80.0-97.0) fL MCHC 31.8 L (32.0-37.0) g/dL MPV 9.4 L (9.5-12.2) fL Carbon Dioxide 27.8 H (20.0-27.5) mmol/L Anion Gap 8.80 L (10.00-18.00) mmol/L Creatinine 0.5 L (0.6-1.5) mg/dL BUN/Creatinine Ratio 23.80 H (12.00-20.00) Ratio Calcium 7.9 L (8.7-10.3) mg/dL AST 61 H (13-35) U/L Alkaline Phosphatase 183 H (41-126) U/L Total Protein 5.6 L (6.2-8.2) g/dL Albumin 2.5 L (3.8-4.9) g/dL Albumin/Globulin Ratio 0.79 L (1.60-3.17) g/dL Microbiology - Last 24 Hours (Table) 12/11/22 14:18 Gram Stain - Preliminary Ascites Fluid Body Fluid Culture - Preliminary Assessment and Plan (1) Cirrhosis Narrative/Plan: 67-year-old female with long-standing history of alcohol abuse admitted for abdominal distention found to have a large amount of abdominal ascites as well as lower extremity edema. This the patient has not followed with any PCP or clearance diver in the past. No previous history of cirrhosis of the liver. Patient has been a heavy drinker for likely greater than 10 years with a history of rehab last in 2013 who continues to drink 2-3 hard liquor drinks at least 3 days a week. She denies any previous history of paracentesis in the past, no medications at home other than her inhaler. 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 Patient scheduled for paracentesis with fluid studies. Diuretics have been initiated per primary medicine team. Current Visit: Yes Status: Acute Code(s): K74.60 - UNSPECIFIED CIRRHOSIS OF LIVER SNOMED Code(s): 55971323 (2) Abdominal ascites Narrative/Plan: Status post paracentesis with 1.2 L fluid removed. Fluid studies consistent with underlying liver disease, fluid albumin and protein consistent with portal hypertension. Awaiting fluid culture and cytology. Patient with leukocytosis, abdominal tenderness. Consider spontaneous bacterial peritonitis, will start on Rocephin and await fluid cultures. Current Visit: Yes Status: Acute Code(s): R18.8 - OTHER ASCITES SNOMED Code(s): 308142042 (3) Alcohol abuse Current Visit: Yes Status: Acute Code(s): F10.10 - ALCOHOL ABUSE, UNCOMPLICATED SNOMED Code(s): 58273931 (4) Leukocytosis Narrative/Plan: Patient with positive nitrates and urine, WBC trending up since admission, consider possible SBP versus UTI. Will start IV Rocephin. Fluid study WBC within normal limits, preliminary fluid culture currently with no growth at 48 hours. There etiology of leukocytosis, would continue IV Rocephin for another 24 hours and run urine culture. Current Visit: Yes Status: Acute Code(s): D72.829 - ELEVATED WHITE BLOOD CELL COUNT, UNSPECIFIED SNOMED Code(s): 272238361 Plan: 1. Continue symptomatic and supportive care 2. Patient may have low sodium diet 3. Replace potassium per protocol 4. Alpha-fetoprotein tumor marker ordered 5. Liver ultrasound reviewed, no lesions noted. Can consider outpatient MRI of liver 6. Rocephin 1 g every 24 for possible SBP, continue for another 24 hours 7. Continue diuretics, recommend Lasix 40 mg daily and spironolactone 100 mg daily 8. Alcohol cessation, discussed with patient again on importance of alcohol cessation with underlying cirrhosis of the liver. Patient verbalized understanding. 9. Outpatient follow-up with gastroenterology in the next 1-2 weeks. Thank you for this consultation, anticipate discharge in the next [address] Tarsha Russell I agree with the dictator's note, documented as a scribe by Jackie Fletcher
[2022-12-13] MEDS ORDERED: MAGNESIUM OXIDE 400 MG TAB PO STA (16:01)
--- NOTE | 2022-12-13 16:16 | P.PN ---
Subjective Progress Note Date: 12/13/22 Hospital course: Patient is a very pleasant 67-year-old female with a past medical history of COPD with continued nicotine dependence, daily alcohol use/abuse, and uterine and rectal prolapse. She presented to the emergency department on the evening of 12/10/22 with her daughter for evaluation of significant weight loss and increased abdominal distention and lower extremity edema progressively worsening over the past year and does not follow with a primary care doctor. Patient also reporting in addition to her rectal prolapse has gotten significantly worse and states her rectum/intestines "fall out" anytime she stands up or walks. Patient underwent full evaluation in the emergency department. Chest x-ray completed showing evidence of COPD but negative for acute intercranial process. EKG showing sinus mechanism at 89 bpm with no noted T-wave or ST abnormalities upon personal review and interpretation. Labs completed and reviewed. CBC showing leukocytosis with WBC count of 14.1 and normocytic anemia with hemoglobin of 10.7. Coagulation profile revealing an elevated PT of 12.3 and INR of 1.2. BMP revealing mild hyponatremia with sodium of 134 and a creatinine of 0.43. Calcium 8.0, however corrected calcium of 9.1 due to hypoalbuminemia with albumin of 2.6. Liver profile showing normal bilirubin of 1.1, AST of 61, ALT of 20, and alkaline phosphatase of 210. Magnesium 1.2 and was replaced in the emergency department. CT abdomen and pelvis with contrast was completed showing massive abdominal ascites fluid with changes in the liver consistent with cirrhosis, sigmoid diverticulosis without diverticulitis, a cystocele, small left fluid containing inguinal hernia, perirectal hernia containing ascites fluid, and poorly marginated hypodensities in the superior and inferior right lobes of the liver possibly secondary to fatty infiltrate however liver mass cannot be entirely excluded. Patient was admitted under our services with consultation to general surgery and gastroenterology. MELD-Na Score upon admission was 14 points with a less then 2% estimated 90 day mortality based upon elevated INR 1.2, sodium 134, creatinine 0.43, and liver profile showing normal bilirubin of 1.1, AST of 61, ALT of 20, and alkaline phosphatase of 210. Physical exam: Patient seen and fully evaluated at the bedside. She underwent paracentesis yesterday with IR resulting in removal of approximately 1.2 L of ascitic fluid. Samples sent to lab for analysis and cytology testing. Patient reports feeling much better this morning and was eating breakfast at time of assessment. She denied having any complaints or concerns at this time. Vital signs reviewed and stable. General: Cachectic appearance, appears older than her biological age, Emaciated with massive ascites Derm: Skin warm and dry, normal coloration for ethnicity. Head: Atraumatic, normocephalic and symmetric. Eyes: EOMs intact, no lid lag, and anicteric sclera Mouth: no lip lesions, mucus membranes moist Cardiovascular: regular rate and rhythm with normal S1S2, no murmur, positive posterior tibial pulses bilaterally, and cap refill < 2 seconds. Lungs: Respirations even, regular, and unlabored on room air. Lungs CTA bila terally, no rhonchi, no rales, no wheezing, and no accessory muscle usage. Abdominal: Distended ascitic abdomen. Patient reports moderate rectal prolapse upon standing, retracted while sitting and lying. Ext: ROM intact. No gross muscle atrophy, 3+ pitting bilateral lower extremity edema, no contractures. Open wounds left lower extremity seeping serous fluid. Neuro: Speech clear, face symmetrical and CN II-XII grossly intact with no noted focal neuro deficits Psych: Alert and oriented to person, place, time, and situation. Appropriate and pleasant affect. Assessment and Plan of Care: Morning labs reviewed. CBC revealing leukocytosis with WBC count of 15.35 and microcytic hyperchromic anemia with hemoglobin of 9.4. BMP revealing resolution of previously noted hypokalemia with stable potassium of 3.7 and persistent hypomagnesemia with magnesium of 1.7. Liver profile showing continued elevation of liver enzymes with AST of 61 and alkaline phosphatase 183. 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 -MELD-Na Score upon admission with 14 points with a less then 2% estimated 90 day mortality. -Hepatitis panel resulting nonreactive. -Liver ultrasound completed secondary to concerns of possible lesions noted on CT and ultrasound report reviewed stating hepatic cirrhosis without discrete focal lesion identified and small volume perihepatic ascites. -Interventional radiology completed diagnostic paracentesis on 12/11/22 with removal of approximately 1.2 L of fluid. -Ascitic fluid culture reviewed and preliminary results showing no growth to date and the fluid cytology results reviewed showing no cytologically malignant cells identified. -Gastroenterology following and discussed plan of care with gastroenterology STITCHING MACHINE FEEDER OR OFFBEARER recommended continuing Rocephin for another 24 hours then recommending discharge home on oral Lasix 40 mg daily and Aldactone 100 mg daily and to follow up in their office in 1-2 weeks. -Order placed for repeat CBC and CMP to follow up closely with hemoglobin and liver enzymes. -Patient to continue with protein supplement, Premier protein 3 times daily between meals and consult placed to safemaker. -Alpha fetoprotein tumor marker 3.40 Hypomagnesemia -Morning labs reviewed. Magnesium 1.7 and order placed for magnesium ox 400 mg by mouth 1 dose. -Order placed for repeat magnesium level and will follow-up on results and replace abnormal electrolyte abnormalities as indicated. Hypokalemia, resolved. Rectal prolapse -Gen. surgery consulted for evaluation of rectal prolapse Discussed plan of care with general surgery PA there recommending outpatient colonoscopy with no surgical intervention planned at this time. COPD with continued nicotine dependence, not in acute exacerbation -Patient counseled on importance of smoking cessation and risks of continued use . -Continue Nicotine patch 21 mg every 24 hours. CODE STATUS: Full code DVT prophylaxis: SCDs Discussed with: patient, gastroenterology STITCHING MACHINE FEEDER OR OFFBEARER, general surgery PA, and RN Anticipated discharge date: Plan for discharge home likely tomorrow Anticipated discharge place: Home Patient was seen independently by Nurse Pracitioner. This document was prepared using [employer] dictation software. Please allow for errors in electrical automation engineer, while rare they do occur. Roverto Castillo NP rendered care for this patient independently, reviewed the findings and plan as documented in the note above. I did not physically speak with or examine the patient on this date. Objective - Vital Signs Vital signs: Vital Signs Temp 98.1 F 12/13/22 07:17 Pulse 94 12/13/22 07:17 Resp 18 12/13/22 07:17 BP 123/76 12/13/22 07:17 Pulse Ox 94 L 12/13/22 07:17 FiO2 Intake & Output 12/12/22 12/13/22 12/13/22 18:59 06:59 18:59 Intake Total 318 118 Balance 318 118 Weight 47.627 kg Intake: Intake, IV Titration 200 Amount Magnesium Sulfate-D5w Pmx 100 1 gm In Dextrose/Water 1 100ml.bag @ 100 mls/hr IVPB Q1H [facility] Rx#: [id number] Magnesium Sulfate-D5w Pmx 100 1 gm In Dextrose/Water 1 100ml.bag @ 100 mls/hr IVPB Q1H [facility] Rx#: [id number] Oral 118 118 Other: Voiding Method Diaper Incontinent # Voids 2 - Labs CBC & Chem 7: 12/13/22 06:10 12/13/22 06:10 Labs: Abnormal Lab Results - Last 24 Hours (Table) 12/12/22 12/13/22 12/13/22 Range/Units 04:39 06:10 06:10 WBC 15.35 H (4.50-10.00) X 10*3/uL RBC 3.02 L (4.10-5.20) X 10*6/uL Hgb 9.4 L (12.0-15.0) g/dL Hct 29.6 L (37.2-46.3) % MCV 98.0 H (80.0-97.0) fL MCHC 31.8 L (32.0-37.0) g/dL MPV 9.4 L (9.5-12.2) fL Potassium 3.3 L (3.5-5.5) mmol/L Carbon Dioxide 27.8 H (20.0-27.5) mmol/L Anion Gap 8.80 L (10.00-18.00) mmol/L Creatinine 0.5 L 0.5 L (0.6-1.5) mg/dL BUN/Creatinine Ratio 23.80 H (12.00-20.00) Ratio Calcium 7.7 L 7.9 L (8.7-10.3) mg/dL AST 53 H 61 H (13-35) U/L Alkaline Phosphatase 181 H 183 H (41-126) U/L Total Protein 5.2 L 5.6 L (6.2-8.2) g/dL Albumin 2.4 L 2.5 L (3.8-4.9) g/dL Albumin/Globulin Ratio 0.85 L 0.79 L (1.60-3.17) g/dL Microbiology - Last 24 Hours (Table) 12/11/22 14:18 Gram Stain - Preliminary Ascites Fluid Body Fluid Culture - Preliminary
[2022-12-14] MEDS: FUROSEMIDE 40 MG TAB PO SCH (09:15)
[2022-12-14] MEDS: SPIRONOLACTONE 25 MG TAB PO SCH (09:15)
[2022-12-14] MEDS: NICOTINE 21MG/24HR PATCH TRANSDERM SCH (09:15)
--- NOTE | 2022-12-14 11:39 | P.DS ---
Providers Date of admission: 12/11/22 00:11 Expected date of discharge: 12/14/22 Attending physician: Yoel Prajapati MD Consults: 12/11/22 08:22 Consult Physician Routine Consulting Provider: Cory Ramirez Consult Reason/Comments: rectal prolapse Do you want consulting provider notified?: Already Contacted 12/11/22 08:57 Consult Physician Routine Consulting Provider: Danelle Russell Consult Reason/Comments: cirrhosis Do you want consulting provider notified?: Yes Primary care physician: Stated None Hospital Course: Hospital course: Patient is a very pleasant 67-year-old female with a past medical history of COPD with continued nicotine dependence, daily alcohol use/abuse, and uterine and rectal prolapse. She presented to the emergency department on the evening of 12/10/22 with her daughter for evaluation of significant weight loss and increased abdominal distention and lower extremity edema progressively worsening over the past year and does not follow with a primary care doctor. Patient also reporting in addition to her rectal prolapse has gotten significantly worse and states her rectum/intestines "fall out" anytime she stands up or walks. Patient underwent full evaluation in the emergency department. Chest x-ray completed showing evidence of COPD but negative for acute intercranial process. EKG showing sinus mechanism at 89 bpm with no noted T-wave or ST abnormalities upon personal review and interpretation. Labs completed and reviewed. CBC showing leukocytosis with WBC count of 14.1 and normocytic anemia with hemoglobin of 10.7. Coagulation profile revealing an elevated PT of 12.3 and INR of 1.2. BMP revealing mild hyponatremia with sodium of 134 and a creatinine of 0.43. Calcium 8.0, however corrected calcium of 9.1 due to hypoalbuminemia with albumin of 2.6. Liver profile showing normal bilirubin of 1.1, AST of 61, ALT of 20, and alkaline phosphatase of 210. Magnesium 1.2 and was replaced in the emergency department. CT abdomen and pelvis with contrast was completed showing massive abdominal ascites fluid with changes in the liver consistent with cirrhosis, sigmoid diverticulosis without diverticulitis, a cystocele, small left fluid containing inguinal hernia, perirectal hernia containing ascites fluid, and poorly marginated hypodensities in the superior and inferior right lobes of the liver possibly secondary to fatty infiltrate however liver mass cannot be entirely excluded. Patient was admitted under our services with consultation to general surgery and gastroenterology. MELD-Na Score upon admission was 14 points with a less then 2% estimated 90 day mortality based upon elevated INR 1.2, sodium 134, creatinine 0.43, and liver profile showing normal bilirubin of 1.1, AST of 61, ALT of 20, and alkaline phosphatase of 210. Physical exam: Patient seen and fully evaluated at the bedside. She underwent paracentesis y esterday with IR resulting in removal of approximately 1.2 L of ascitic fluid. Samples sent to lab for analysis and cytology testing. Patient reports feeling much better this morning and was eating breakfast at time of assessment. She denied having any complaints or concerns at this time. Vital signs reviewed and stable. General: Cachectic appearance, appears older than her biological age, Emaciated with massive ascites Derm: Skin warm and dry, normal coloration for ethnicity. Head: Atraumatic, normocephalic and symmetric. Eyes: EOMs intact, no lid lag, and anicteric sclera Mouth: no lip lesions, mucus membranes moist Cardiovascular: regular rate and rhythm with normal S1S2, no murmur, positive posterior tibial pulses bilaterally, and cap refill < 2 seconds. Lungs: Respirations even, regular, and unlabored on room air. Lungs CTA bilaterally, no rhonchi, no rales, no wheezing, and no accessory muscle usage. Abdominal: Distended ascitic abdomen. Patient reports moderate rectal prolapse upon standing, retracted while sitting and lying. Ext: ROM intact. No gross muscle atrophy, 3+ pitting bilateral lower extremity edema, no contractures. Open wounds left lower extremity seeping serous fluid. Neuro: Speech clear, face symmetrical and CN II-XII grossly intact with no noted focal neuro deficits Psych: Alert and oriented to person, place, time, and situation. Appropriate and pleasant affect. Assessment and Plan of Care: Morning labs reviewed. CBC revealing leukocytosis with WBC count of 15.35 and microcytic hyperchromic anemia with hemoglobin of 9.4. BMP revealing resolution of previously noted hypokalemia with stable potassium of 3.7 and persistent hypomagnesemia with magnesium of 1.7. Liver profile showing continued elevation of liver enzymes with AST of 61 and alkaline phosphatase 183. 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 -MELD-Na Score upon admission with 14 points with a less then 2% estimated 90 day mortality. -Hepatitis panel resulting nonreactive. -Liver ultrasound completed secondary to concerns of possible lesions noted on C T and ultrasound report reviewed stating hepatic cirrhosis without discrete focal lesion identified and small volume perihepatic ascites. -Interventional radiology completed diagnostic paracentesis on 12/11/22 with removal of approximately 1.2 L of fluid. -Ascitic fluid culture reviewed and preliminary results showing no growth to date and the fluid cytology results reviewed showing no cytologically malignant cells identified. -Gastroenterology following and discussed plan of care with gastroenterology WIND ENERGY PROJECT MANAGER recommended continuing Rocephin for another 24 hours then recommending discharge home on oral Lasix 40 mg daily and Aldactone 100 mg daily and to follow up in their office in 1-2 weeks. -Order placed for repeat CBC and CMP to follow up closely with hemoglobin and liver enzymes. -Patient to continue with protein supplement, Premier protein 3 times daily between meals and consult placed to trade economist. -Alpha fetoprotein tumor marker 3.40 Hypomagnesemia -Morning labs reviewed. Magnesium 1.7 and order placed for magnesium ox 400 mg by mouth 1 dose. -Order placed for repeat magnesium level and will follow-up on results and replace abnormal electrolyte abnormalities as indicated. Hypokalemia, resolved. Rectal prolapse -Gen. surgery consulted for evaluation of rectal prolapse Discussed plan of care with general surgery PA there recommending outpatient colonoscopy with no surgical intervention planned at this time. COPD with continued nicotine dependence, not in acute exacerbation -Patient counseled on importance of smoking cessation and risks of continued use. -Continue Nicotine patch 21 mg every 24 hours. CODE STATUS: Full code DVT prophylaxis: SCDs Discussed with: patient, gastroenterology WIND ENERGY PROJECT MANAGER, general surgery PA, and RN Anticipated discharge date: Plan for discharge home likely tomorrow Anticipated discharge place: Home Patient was seen independently by Nurse Pracitioner. This document was prepared using [employer] dictation software. Please allow for errors in aoc plans intelligence officer, while rare they do occur. Patient Condition at Discharge: Stable Plan - Discharge Summary Discharge Rx Participant: No New Discharge Prescriptions: New Spironolactone [Aldactone] 100 mg PO DAILY #30 tab Furosemide [Lasix] 40 mg PO DAILY #30 tab Discharge Medication List Furosemide [Lasix] 40 mg PO DAILY #30 tab 12/13/22 [Rx] Spironolactone [Aldactone] 100 mg PO DAILY #30 tab 12/13/22 [Rx] Follow up Appointment(s)/Referral(s): Compa Magdaleno MD [STAFF PHYSICIAN] - 1 Week Danelle Russell MD [STAFF PHYSICIAN] - 1 Week (Please schedule appointment prior to discharge) Patient Instructions/Handouts: Cirrhosis (DC), Ascites (DC) Activity/Diet/Wound Care/Special Instructions: Activity: As tolerated. Take breaks as needed. Diet: Heart healthy and carb consistent diet. Avoid salts, or foods with hidden salts such as canned or boxed foods and frozen dinners. Extra salt makes your heart work harder and traps the fluid in your body for longer. Special Instructions: Take all of your medications as directed and remember to keep all of your doctor's appointments and follow-up as needed. Thank you for allowing us to participate in your care, it was truly a pleasure having you for our patient!!! Discharge Disposition: HOME WITH HOME HEALTH SERVICES
--- NOTE | 2022-12-14 13:06 | P.PN ---
Subjective Progress Note Date: 12/14/22 CHIEF COMPLAINT: Rectal prolapse HISTORY OF PRESENT ILLNESS: Patient currently admitted to the hospital with abdominal distention with evidence of abdominal ascites. She is status post paracentesis with 1.2 L removed. Patient lying in bed comfortably. No new complaints. Rectal prolapse remains reduced. Patient did have bowel movement. Afebrile. No new labs. Patient seen and examined with Dr. ballard PHYSICAL EXAM: VITAL SIGNS: Reviewed. GENERAL: Well-developed in no acute distress. HEENT: No sclera icterus. Extraocular movements grossly intact. Moist buccal mucosa. Head is atraumatic, normocephalic. ABDOMEN: Soft. distended. Nontender. NEUROLOGIC: Alert and oriented. Cranial nerves II through XII grossly intact. ASSESSMENT: 1. Rectal prolapse 2. Perirectal hernia containing ascites fluid 3. Abdominal ascites 4. Alcohol liver cirrhosis 5. Daily alcohol use PLAN: -No surgical intervention planned at this time -Recommend outpatient colonoscopy -Patient is considered a high risk surgical candidate due to her liver cirrhosis and ascites -Continue supportive care -Surgical service will sign off. Please call with any questions or concerns Physician Head Paper Tester note has been reviewed by physician. Signing provider agrees with the documented findings, assessment, and plan of care. Objective - Vital Signs Vital signs: Vital Signs Temp 97.3 F L 12/14/22 07:28 Pulse 104 H 12/14/22 11:05 Resp 14 12/14/22 07:28 BP 113/74 12/14/22 07:28 Pulse Ox 94 L 12/14/22 07:28 FiO2 Intake & Output 12/13/22 12/14/22 12/14/22 18:59 06:59 18:59 Intake Total 168 Balance 168 Weight 47.627 kg Intake: Intake, IV Titration 50 Amount cefTRIAXone 1 gm In 50 Sodium Chloride 0.9% 50 ml @ 100 mls/hr IVPB Q24HR [facility] Rx#:[id number] Oral 118 Other: Voiding Method Diaper Diaper Diaper Incontinent # Voids 2 2 1 # Bowel Movements 1 1 - Labs CBC & Chem 7: 12/13/22 06:10 12/13/22 06:10 Labs: Microbiology - Last 24 Hours (Table) 12/11/22 14:18 Gram Stain - Preliminary Ascites Fluid Body Fluid Culture - Preliminary 12/11/22 14:18 Anaerobic Culture - Preliminary Ascites Fluid
--- NOTE | 2022-12-14 18:47 | P.PN ---
Subjective Progress Note Date: 12/14/22 Hospital course: Patient is a very pleasant 67-year-old female with a past medical history of COPD with continued nicotine dependence, daily alcohol use/abuse, and uterine and rectal prolapse. She presented to the emergency department on the evening of 12/10/22 with her daughter for evaluation of significant weight loss and increased abdominal distention and lower extremity edema progressively worsening over the past year and does not follow with a primary care doctor. Patient also reporting in addition to her rectal prolapse has gotten significantly worse and states her rectum/intestines "fall out" anytime she stands up or walks. Patient underwent full evaluation in the emergency department. Chest x-ray completed showing evidence of COPD but negative for acute intercranial process. EKG showing sinus mechanism at 89 bpm with no noted T-wave or ST abnormalities upon personal review and interpretation. Labs completed and reviewed. CBC showing leukocytosis with WBC count of 14.1 and normocytic anemia with hemoglobin of 10.7. Coagulation profile revealing an elevated PT of 12.3 and INR of 1.2. BMP revealing mild hyponatremia with sodium of 134 and a creatinine of 0.43. Calcium 8.0, however corrected calcium of 9.1 due to hypoalbuminemia with albumin of 2.6. Liver profile showing normal bilirubin of 1.1, AST of 61, ALT of 20, and alkaline phosphatase of 210. Magnesium 1.2 and was replaced in the emergency department. CT abdomen and pelvis with contrast was completed showing massive abdominal ascites fluid with changes in the liver consistent with cirrhosis, sigmoid diverticulosis without diverticulitis, a cystocele, small left fluid containing inguinal hernia, perirectal hernia containing ascites fluid, and poorly marginated hypodensities in the superior and inferior right lobes of the liver possibly secondary to fatty infiltrate however liver mass cannot be entirely excluded. Patient was admitted under our services with consultation to general surgery and gastroenterology. MELD-Na Score upon admission was 14 points with a less then 2% estimated 90 day mortality based upon elevated INR 1.2, sodium 134, creatinine 0.43, and liver profile showing normal bilirubin of 1.1, AST of 61, ALT of 20, and alkaline phosphatase of 210. Patient was admitted under our services with consultation to Gen. surgery and gastroenterology. She underwent paracentesis 12/12/22 with IR resulting in removal of approximately 1.2 L of ascitic fluid. Samples sent to lab for analysis and cytology testing. Ascitic fluid culture reviewed and preliminary results showing no growth to date and the fluid cytology results reviewed showing no cytologically malignant cells identified. Hepatitis panel resulting negative showing nonreactive. Alpha-fetoprotein marker 3.40. Gen. surgery and gastroenterology have signed off patient at this time recommending outpatient follow-up in their office. Physical exam: Vital signs reviewed and stable. General: Cachectic appearance, appears older than her biological age, Emaciated with massive ascites Derm: Skin warm and dry, normal coloration for ethnicity. Head: Atraumatic, normocephalic and symmetric. Eyes: EOMs intact, no lid lag, and anicteric sclera Mouth: no lip lesions, mucus membranes moist Cardiovascular: regular rate and rhythm with normal S1S2, no murmur, positive posterior tibial pulses bilaterally, and cap refill < 2 seconds. Lungs: Respirations even, regular, and unlabored on room air. Lungs CTA bilaterally, no rhonchi, no rales, no wheezing, and no accessory muscle usage. Abdominal: Distended ascitic abdomen. Patient reports moderate rectal prolapse upon standing, retracted while sitting and lying. Ext: ROM intact. No gross muscle atrophy, scant lower extremity edema significantly improved since admission, no contractures. Neuro: Speech clear, face symmetrical and CN II-XII grossly intact with no noted focal neuro deficits Psych: Alert and oriented to person, place, time, and situation. Appropriate and pleasant affect. Assessment and Plan of Care: Initial plan was for discharge home today with home care, however per RN while resting in chair eating lunch, patient's heart rate reportedly increased to 140s. Order was placed for a STAT EKG, EKG was completed showing sinus tachycardia at 107 bpm with no noted T-wave or ST abnormalities showing no signs of acute ischemia. Patient concerned regarding discharge at this time. Discharge being canceled, echocardiogram to be obtained, and cardiology consult placed. 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 -MELD-Na Score upon admission with 14 points with a less then 2% estimated 90 day mortality. -Hepatitis panel resulting nonreactive. -Liver ultrasound completed secondary to concerns of possible lesions noted on CT and ultrasound report reviewed stating hepatic cirrhosis without discrete focal lesion identified and small volume perihepatic ascites. -Interventional radiology completed diagnostic paracentesis on 12/11/22 with removal of approximately 1.2 L of fluid. -Ascitic fluid culture reviewed and preliminary results showing no growth to date and the fluid cytology results reviewed showing no cytologically malignant cells identified. -Gastroenterology evaluated recommending discharge home on oral Lasix 40 mg daily and Aldactone 100 mg daily and to follow up in their office in 1-2 weeks. -Order placed for repeat CBC and CMP to follow up closely with hemoglobin and liver enzymes. -Patient to continue with protein supplement, Premier protein 3 times daily between meals and consult placed to processes chemical design engineer. -Alpha fetoprotein tumor marker 3.40 Sinus tachycardia -EKG was completed showing sinus tachycardia at 107 bpm with no noted T-wave or ST abnormalities showing no signs of acute ischemia upon personal review and interpretation. -RN reports patient's heart rate at rest increased to 140s. -Cardiology consulted. -Order placed for echocardiogram. Hypomagnesemia -Morning labs reviewed. Magnesium 1.7 and order placed for magnesium ox 400 mg by mouth 1 dose. -Order placed for repeat magnesium level and will follow-up on results and replace abnormal electrolyte abnormalities as indicated. Hypokalemia, resolved. Rectal prolapse -Gen. surgery consulted for evaluation of rectal prolapse Discussed plan of care with general surgery PA there recommending outpatient colonoscopy with no surgical intervention planned at this time. COPD with continued nicotine dependence, not in acute exacerbation -Patient counseled on importance of smoking cessation and risks of continued use. -Continue Nicotine patch 21 mg every 24 hours. CODE STATUS: Full code DVT prophylaxis: SCDs Discussed with: patient, general surgery PA, and RN Anticipated discharge date: Plan for discharge home within the next [address]: Home with home care Patient was seen independently by Nurse Pracitioner. This document was prepared using [employer] dictation software. Please allow for errors in glass installer technician, while rare they do occur. Objective - Vital Signs Vital signs: Vital Signs Temp 97.3 F L 12/14/22 07:28 Pulse 104 H 12/14/22 07:28 Resp 14 12/14/22 07:28 BP 113/74 12/14/22 07:28 Pulse Ox 94 L 12/14/22 07:28 FiO2 Intake & Output 12/13/22 12/14/22 12/14/22 18:59 06:59 18:59 Intake Total 168 Balance 168 Weight 47.627 kg Intake: Intake, IV Titration 50 Amount cefTRIAXone 1 gm In 50 Sodium Chloride 0.9% 50 ml @ 100 mls/hr IVPB Q24HR [facility] Rx#:[id number] Oral 118 Other: Voiding Method Diaper Diaper Diaper Incontinent # Voids 2 2 # Bowel Movements 1 - Labs CBC & Chem 7: 12/13/22 06:10 12/13/22 06:10 Labs: Microbiology - Last 24 Hours (Table) 12/11/22 14:18 Anaerobic Culture - Preliminary Ascites Fluid 12/11/22 14:18 Gram Stain - Preliminary Ascites Fluid Body Fluid Culture - Preliminary
--- NOTE | 2022-12-14 21:29 | XR ---
EXAMINATION TYPE: XR Hip Complete LT DATE OF EXAM: 12/14/2022 COMPARISON: NONE HISTORY: Fall. Pain TECHNIQUE: 2 views FINDINGS: There is no fracture or dislocation. Hip joint space is normal. Acetabulum is intact. IMPRESSION: Negative left hip exam. No fracture.
--- NOTE | 2022-12-15 04:20 | P.PN ---
Progress Note - Text Progress Note Date: 12/14/22 Patient had an unwitnessed fall at 1927. As per the RN, the patient was found on the floor after her bathroom light was on. The patient was oriented and endorsed losing her balance and falling. She reported falling to her left hip and shoulder. Denied experiencing head trauma or loss of consciousness. The patient denied headache or visual disturbance. L Hip X-ray was obtained which was unremarkable. Subsequently notified by the RN at 0400 that the patient's HR has been elevated in the 140-160s while the patient is resting comfortably in bed asymptomatic. The patient who continues to be AAOx3 denied experiencing head or neck pain. EKG ordered showing sinus tachycardia at 111 bpm. Cardiology consulted. Patient afebrile and denying any active complaints.
--- NOTE | 2022-12-15 07:57 | P.CRDCN ---
History of Present Illness Consult date: 12/15/22 Chief complaint: Abdomen distention History of present illness: The patient is a 67-year-old female patient with a past medical history significant for history of alcohol use as well as liver cirrhosis was admitted to the hospital with abdominal distention and she was diagnosed with bursitis. Subsequently she underwent paracentesis with removal of significant amount of fluid. She presented to the hospital she did not have any increase in the shortness of breath no lower extremities edema and no symptoms of chest pain or chest discomfort or any dizziness or lightheadedness or any heart racing or fluttering. We consulted to see the patient because of sinus tachycardia. She has been maintaining a heart rate around 110 beats per minutes. She is asymptomatic into of heart racing or fluttering or any feeling of the sinus tachycardia. As a mentioned earlier no symptoms of chest pain or chest discomfort. She underwent an EKG yesterday and that showed sinus tachycardia with low-voltage QRS and heart rate around 110 beats per minutes. Currently she is not on any AV nicki blocking agents. She is on diuretics including Lasix as well as Aldactone. An echocardiogram is in process to be done. The examination is remarkable for sinus tachycardia with soft systolic murmur at the right and left upper sternal border with a clear breathing sounds bilaterally and no carotid bruit and she has no lower extremities edema noted. The EKG was described above. Assessment Anasarca Ascites Liver cirrhosis Sinus tachycardia Plan The sinus tachycardia is unlikely to be related to intravascular volume depletion Rule out pulmonary embolism giving the patient in activity. Obtain d-dimer. We'll speak against PE that she is not hypoxic Agree to obtain an echocardiogram was Doppler. Rule out pericardial effusion Follow-up with the patient Past Medical History Past Medical History: COPD, GERD/Reflux, Hyperlipidemia, Hypertension Additional Past Medical History / Comment(s): urinary leakage,uterine prolapse History of Any Multi-Drug Resistant Organisms: None Reported Past Surgical History: Hernia Repair, Orthopedic Surgery Additional Past Surgical History / Comment(s): umbilical hernia repair,ORIF lt wrist,carpel tunnel ruby wrist,rt hand tendon repair,facial reconstruction-metal plate chin-repair mult fx around lt eye and face,teeth removed,rt cheek skin fatty tumor removed Past Anesthesia/Blood Transfusion Reactions: No Reported Reaction Additional Past Anesthesia/Blood Transfusion Reaction / Comment(s): no hx blood transfusion Past Psychological History: Anxiety Additional Psychological History / Comment(s): hx post depression Smoking Status: Current every day smoker Past Alcohol Use History: Occasional Additional Past Alcohol Use History / Comment(s): smokes 1ppd,started smoking at age 15 Past Drug Use History: None Reported - Past Family History Mother Family Medical History: Cancer Additional Family Medical History / Comment(s): renal cell carcinoma Father Family Medical History: Cancer Additional Family Medical History / Comment(s): brain Son(s) Family Medical History: Congestive Heart Failure (CHF), Renal Disease Additional Family Medical History / Comment(s): obesity,hemodialysis,MRSA Medications and Allergies Home Medications Medication Instructions Recorded Confirmed Type Furosemide [Lasix] 40 mg PO DAILY #30 tab 12/13/22 Rx Spironolactone [Aldactone] 100 mg PO DAILY #30 tab 12/13/22 Rx Allergies Allergy/AdvReac Type Severity Reaction Status Date / Time meperidine [From Demerol] Allergy Dyspnea Verified 12/10/22 21:45 Physical Exam Vitals: Vital Signs Temp Pulse Resp BP Pulse Ox 12/15/22 02:00 98.5 F 104 H 17 103/55 95 12/14/22 20:04 114 H 18 12/14/22 19:40 98.9 F 116 H 18 120/69 97 12/14/22 19:29 98.7 F 114 H 16 101/61 96 12/14/22 14:00 97.5 F L 137 H 16 122/72 100 12/14/22 11:05 104 H Intake and Output 12/14/22 12/15/22 12/15/22 22:59 06:59 14:59 Other: Voiding Method Toilet Diaper # Voids 2 2 Results 12/13/22 06:10 12/13/22 06:10 Current Medications Generic Name Dose Route Start Last Admin Trade Name Freq PRN Reason Stop Dose Admin Albuterol/Ipratropium 3 ml 12/11/22 03:58 Ipratropium-Albuterol 3 Ml Neb INHALATION RT-QID PRN Shortness Of Breath Or Wheezing Furosemide 40 mg 12/13/22 09:30 12/14/22 09:15 Furosemide 40 Mg Tab PO 40 mg DAILY DONTAE Administration Ceftriaxone Sodium 1 gm/ 50 mls @ 100 mls/hr 12/12/22 11:45 12/14/22 09:15 Sodium Chloride IVPB 100 mls/hr Q24HR DONTAE Administration Protocol Metoprolol Succinate 12.5 mg 12/15/22 09:00 Metoprolol Succinate (Er) 25 Mg Tab.Er.24h PO DAILY DONTAE Naloxone HCl 0.2 mg 12/11/22 00:11 Naloxone 0.4 Mg/Ml 1 Ml Vial IV Q2M PRN Opioid Reversal Nicotine 1 patch 12/12/22 09:00 12/14/22 09:15 Nicotine 21mg/24hr Patch TRANSDERM Not Given DAILY DONTAE Spironolactone 100 mg 12/12/22 09:00 12/14/22 09:15 Spironolactone 25 Mg Tab PO 100 mg DAILY DONTAE Administration Intake and Output 12/14/22 12/15/22 12/15/22 22:59 06:59 14:59 Other: Voiding Method Toilet Diaper # Voids 2 2 12/13/22 06:10 12/13/22 06:10
[2022-12-15] MEDS ORDERED: IPRATROPIUM 0.5 MG/2.5 ML NEBU INHALATION PRN (08:15)
[2022-12-15] MEDS ORDERED: ALBUTEROL NEBULIZED 2.5 MG/3 ML INHALATION PRN (08:15)
[2022-12-15] MEDS: NICOTINE 21MG/24HR PATCH TRANSDERM SCH (09:14)
[2022-12-15] MEDS: SPIRONOLACTONE 25 MG TAB PO SCH (09:14)
[2022-12-15] MEDS: FUROSEMIDE 40 MG TAB PO SCH (09:14)
[2022-12-15] MEDS: METOPROLOL SUCCINATE (ER) 25 MG TAB.ER.24H PO SCH (09:25)
--- NOTE | 2022-12-15 11:28 | CT ---
CT CHEST FOR PULMONARY EMBOLISM. EXAMINATION TYPE: CT chest angio for PE DATE OF EXAM: 12/15/2022 INDICATION: Elevated D-dimer, tachycardia CT DLP: 152.7 mGycm, Automated exposure control for dose reduction was used. CONTRAST: Patient injected with 100 ml mL of Isovue 370. COMPARISON: None TECHNIQUE: CT of the chest is performed on a spiral scan at 2 mm thick sections. Study is performed with intravenous contrast timed for evaluation for pulmonary embolism. This will limit additional po rtions of the evaluation. 3-D MIP images reconstructed by the technologist are reviewed on the compu ter in the coronal and sagittal planes. FINDINGS: No persistent filling defects are evident to suggest an acute pulmonary embolism. No mediastinal or hilar adenopathy enlarged by CT criteria is evident. The ascending aorta diameter at the level of the main pulmonary artery is 3.5 cm. The main pulmonary artery diameter at the bifur cation is 2.7 cm. There is a small left pleural effusion. Very minimal right pleural effusion may be present. Apical scarring may be present. Emphysematous changes are present within the bilateral lung marina. T here is a 0.6 cm nodularity within the lateral right midlung. Series 401 image 102. Hiatal hernia is present. Ascites is within the abdomen. Limited CT section through the upper abdomen are unremarkable. IMPRESSIONS: 1. No acute pulmonary embolism radiographically evident. 2. Nodularity within the right midlung is nonspecific. Metastatic disease primary neoplasm could be c onsidered. There is some apparent scarring at the lung apices. Findings could be further evaluated wi th PET/CT. 3. Small left and minimal right pleural effusions
--- NOTE | 2022-12-15 12:57 | CA ---
Transthoracic Echo Report Name: Emily Nickerson Age: 67 Gender: F : 1955 Exam Date: 12/15/2022 10:05 Exam Location: [facility] Ht (in): 64 Wt (lb): 105 Ordering Physician: Roverto Castillo Attending/Referring Phys: Marketing Communications Specialist Ely Monteiro RDCS Procedure CPT: Indications: tachycardia Cardiac Hx: Technical Quality: Fair Contrast 1: Total Dose (mL): Contrast 2: Total Dose (mL): MEASUREMENTS (Male / Female) Normal Values 2D ECHO LV Diastolic Diameter PLAX 3.3 cm 4.2 - 5.9 / 3.9 - 5.3 cm LV Systolic Diameter PLAX 1.9 cm IVS Diastolic Thickness 0.6 cm 0.6 - 1.0 / 0.6 - 0.9 cm LVPW Diastolic Thickness 0.8 cm 0.6 - 1.0 / 0.6 - 0.9 cm LV Relative Wall Thickness 0.4 RV Internal Dim ED PLAX 3.4 cm LA Systolic Diameter LX 2.1 cm 3.0 - 4.0 / 2.7 - 3.8 cm M-MODE Aortic Root Diameter MM 2.9 cm MV E Point Septal Separation 0.3 cm AV Cusp Separation MM 2.0 cm DOPPLER AV Peak Velocity 141.3 cm/s AV Peak Gradient 8.0 mmHg AI Peak Velocity 347.8 cm/s AI Peak Gradient 48.4 mmHg AI Pressure Half Time 412.9 ms MV Area PHT 18.6 cm??? Mitral E Point Velocity 49.7 cm/s Mitral A Point Velocity 79.9 cm/s Mitral E to A Ratio 0.6 MV Deceleration Time 40.7 ms TR Peak Velocity 1568.1 cm/s TR Peak Gradient 359.0 mmHg Right Ventricular Systolic Press 47.0 mmHg FINDINGS Left Ventricle Left ventricular ejection fraction is estimated at 60-65 %. Small left ventricular cavity. Left ventricular wall thickness normal. Right Ventricle Mild right ventricular dilatation. Moderate pulmonary hypertension. Right Atrium Normal right atrial size. Anurysmal atrial septum Left Atrium Normal left atrial size. Mitral Valve Mitral valve thickened. Mild mitral regurgitation. Aortic Valve Trileaflet aortic valve. Focal thickening of the aortic valve cusps. Mild aortic regurgitation. Tricuspid Valve Structurally normal tricuspid valve. [id number] tricuspid regurgitation. Pulmonic Valve Structurally normal pulmonic valve. No pulmonic regurgitation. Pericardium Normal pericardium. No pericardial effusion. Right pleural effusion. Aorta Normal size aortic root and proximal ascending aorta. CONCLUSIONS Normal LV systolic function Dilated right ventricle with normal function. Moderate pulmonary hypertension Aneurysmal interatrial septum Aortic sclerosis with no stenosis was mild insufficiency Mild mitral regurgitation Moderate to severe tricuspid regurgitation Previewed by: Dr. Raymundo Barroso MD (Electronically Signed) Final Date: 15 December 2022 12:56
--- NOTE | 2022-12-15 17:06 | P.PN ---
Subjective Progress Note Date: 12/15/22 Hospital course: Patient is a very pleasant 67-year-old female with a past medical history of COPD with continued nicotine dependence, daily alcohol use/abuse, and uterine and rectal prolapse. She presented to the emergency department on the evening of 12/10/22 with her daughter for evaluation of significant weight loss and increased abdominal distention and lower extremity edema progressively worsening over the past year and does not follow with a primary care doctor. Patient also reporting in addition to her rectal prolapse has gotten significantly worse and states her rectum/intestines "fall out" anytime she stands up or walks. Patient underwent full evaluation in the emergency department. Chest x-ray completed showing evidence of COPD but negative for acute intercranial process. EKG showing sinus mechanism at 89 bpm with no noted T-wave or ST abnormalities upon personal review and interpretation. Labs completed and reviewed. CBC showing leukocytosis with WBC count of 14.1 and normocytic anemia with hemoglobin of 10.7. Coagulation profile revealing an elevated PT of 12.3 and INR of 1.2. BMP revealing mild hyponatremia with sodium of 134 and a creatinine of 0.43. Calcium 8.0, however corrected calcium of 9.1 due to hypoalbuminemia with albumin of 2.6. Liver profile showing normal bilirubin of 1.1, AST of 61, ALT of 20, and alkaline phosphatase of 210. Magnesium 1.2 and was replaced in the emergency department. CT abdomen and pelvis with contrast was completed showing massive abdominal ascites fluid with changes in the liver consistent with cirrhosis, sigmoid diverticulosis without diverticulitis, a cystocele, small left fluid containing inguinal hernia, perirectal hernia containing ascites fluid, and poorly marginated hypodensities in the superior and inferior right lobes of the liver possibly secondary to fatty infiltrate however liver mass cannot be entirely excluded. Patient was admitted under our services with consultation to general surgery and gastroenterology. MELD-Na Score upon admission was 14 points with a less then 2% estimated 90 day mortality based upon elevated INR 1.2, sodium 134, creatinine 0.43, and liver profile showing normal bilirubin of 1.1, AST of 61, ALT of 20, and alkaline phosphatase of 210. Patient was admitted under our services with consultation to Gen. surgery and gastroenterology. She underwent paracentesis 12/12/22 with IR resulting in removal of approximately 1.2 L of ascitic fluid. Samples sent to lab for analysis and cytology testing. Ascitic fluid culture reviewed and preliminary results showing no growth to date and the fluid cytology results reviewed showing no cytologically malignant cells identified. Hepatitis panel resulting negative showing nonreactive. Alpha-fetoprotein marker 3.40. Gen. surgery and gastroenterology have signed off patient at this time recommending outpatient follow-up in their office.patient was initially to be discharged on 12/14/22 and to follow up outpatient with pleater and general surgeon. However just after discharge order placed, patient was found to be tachycardic at a rate of 140 while at rest. Order placed for a stat EKG which revealed sinus tachycardia at 107 bpm with no noted T-wave or ST abnormalities showing no signs of acute ischemia. Discharge was canceled, echocardiogram ordered, and cardiology consult placed. Pt again had second episode of tachycardia 140s to 160s while at rest the morning on 12/14/22an EKG was obtained at that time showing sinus tachycardia at 111 bpm. Produce Team Lead evaluated patient, started her on metoprolol 12.5 mg daily ( low dose secondary to soft blood pressures with cirrhosis) and placed order for d-dimer. D-dimer resulting elevated at 7.72. Order then placed for CT PE and upon completions, radiologist report reviewed stating acute pulmonary emboli has been ruled out, however it was reported that pt has a nodularity within the right mid lung nonspecific and un able to rule out metastatic disease and primary neoplasm may also be considered. There are high concerns for underlying metastatic disease, especially with patient's reports of significant unintentional weight loss over the past year. concerns of possible colorectal cancer with patient's reports of constipation 3 years and rectal prolapse. These concerns were discussed with patient and her son and daughter at bedside. Pt is a poor surgical candidate. Oncology is consulted along with Palliative care as discussed with family. General surgeon was contacted and stated that they can be reconsulted if oncology feels pt should undergo colonoscopy for evaluation prior to discharge. Pt is unclear of whether or not she would like to proceed with colonoscopy at this time, stating she would like to discuss with Oncologist first as she is unclear if she will be able to tolerate prep for colonoscopy with her rectal prolapse. Echocardiogram completed and report reviewed showing an EF of 60-65% with a dilated right ventricle, moderate pulmonary hypertension, aneurysmal interatrial septum, aortic sclerosis, mild mitral regurgitation, and moderate to severe tricuspid regurgitation. Physical exam: Vital signs reviewed and stable. General: Cachectic appearance, appears older than her biological age, Emaciated with massive ascites Derm: Skin warm and dry, normal coloration for ethnicity. Head: Atraumatic, normocephalic and symmetric. Eyes: EOMs intact, no lid lag, and anicteric sclera Mouth: no lip lesions, mucus membranes moist Cardiovascular: regular rate and rhythm with normal S1S2, no murmur, positive posterior tibial pulses bilaterally, and cap refill < 2 seconds. Lungs: Respirations even, regular, and unlabored on room air. Lungs CTA bilaterally, no rhonchi, no rales, no wheezing, and no accessory muscle usage. Abdominal: Distended ascitic abdomen. Patient reports moderate rectal prolapse upon standing, retracted while sitting and lying. Ext: ROM intact. No gross muscle atrophy, scant lower extremity edema significantly improved since admission, no contractures. Neuro: Speech clear, face symmetrical and CN II-XII grossly intact with no noted focal neuro deficits Psych: Alert and oriented to person, place, time, and situation. Appropriate and pleasant affect. 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 Lung Nodule, concerns for metastatic process Aneurysmal intra-atrial septum Moderate to severe tricuspid regurgitation Elevated d-dimer, CTA negative for PE -Discussed pt and episodes of tachycardia with the stile ripsaw operator, Dr. Maria, and he stated that he was going to start pt on metoprolol 12.5 mg daily ( low dose secondary to soft blood pressures with cirrhosis) and placed order for d-dimer. -Upon my follow up of D-dimer, it was elevated at 7.72. Order then placed for CT PE. -CTA chest completed and radiologist report reviewed stating acute pulmonary emboli has been ruled out, however it was reported that pt has a nodularity within the right mid lung nonspecific and unable to rule out metastatic disease and primary neoplasm may also be considered. -There are high concerns for underlying metastatic disease, especially with patient's reports of significant unintentional weight loss over the past year. Concerns of possible colorectal cancer with patient's reports of constipation 3 years and rectal prolapse. These concerns were discussed with patient and her son and daughter at bedside. Pt is a poor surgical candidate. Oncology consulted along with Palliative care as discussed with family. -Also discussed findings and case with General surgeon and he stated that they can be reconsulted if oncology feels pt should undergo colonoscopy for evaluation prior to discharge. Pt is unclear of whether or not she would like to proceed with colonoscopy at this time, stating she would like to discuss with Oncologist first as she is unclear if she will be able to tolerate prep for colonoscopy with her rectal prolapse. -Echocardiogram was reviewed and showing an EF of 60-65% with a dilated right ventricle, moderate pulmonary hypertension, aneurysmal interatrial septum, aortic sclerosis, mild mitral regurgitation, and moderate to severe tricuspid regurgitation. -Order placed for CBC, CMP, and magnesium. Hypomagnesemia, replaced. Hypokalemia, resolved. Rectal prolapse -Gen. surgery consulted for evaluation of rectal prolapse, Recommending outpat ient colonoscopy with no surgical intervention planned at this time. COPD with continued nicotine dependence, not in acute exacerbation -Patient counseled on importance of smoking cessation and risks of continued use. -Continue Nicotine patch 21 mg every 24 hours. CODE STATUS: Full code DVT prophylaxis: SCDs Discussed with: patient, patient's son, patient's daughter, general surgeon, and stile ripsaw operator. Anticipated discharge date: Plan for discharge home within the next [address]: Home with home care Patient was seen independently by Nurse Pracitioner. This document was prepared using [employer] dictation software. Please allow for errors in front sight attacher, while rare they do occur. I reviewed the documentation as provided by the BROCK above, who is the original author of this note. I agree with the documented assessment and plan, with the following changes: none Objective - Vital Signs Vital signs: Vital Signs Temp 98.0 F 12/15/22 06:47 Pulse 99 12/15/22 06:47 Resp 17 12/15/22 06:47 BP 98/61 12/15/22 06:47 Pulse Ox 96 12/15/22 06:47 FiO2 Intake & Output 12/14/22 12/15/22 12/15/22 18:59 06:59 18:59 Weight 47.627 kg Other: Voiding Method Diaper Toilet Diaper # Voids 2 2 # Bowel Movements 1 - Labs CBC & Chem 7: 12/16/22 05:38 12/16/22 05:38 Labs: Abnormal Lab Results - Last 24 Hours (Table) 12/15/22 Range/Units 07:54 D-Dimer 7.72 H (<0.60) mg/L FEU Microbiology - Last 24 Hours (Table) 12/11/22 14:18 Gram Stain - Preliminary Ascites Fluid Body Fluid Culture - Preliminary
[2022-12-16] MEDS: FUROSEMIDE 40 MG TAB PO SCH (08:19)
[2022-12-16] MEDS: METOPROLOL SUCCINATE (ER) 25 MG TAB.ER.24H PO SCH (08:19)
[2022-12-16] MEDS: SPIRONOLACTONE 25 MG TAB PO SCH (08:19)
[2022-12-16] MEDS: NICOTINE 21MG/24HR PATCH TRANSDERM SCH (08:28)
[2022-12-16 09:14] LABS: HCT 26.7 % (37.2-46.3); HGB 8.5 g/dL (12.0-15.0); MCH 30.7 pg (27.0-32.0); MCHC 31.8 g/dL (32.0-37.0); MCV 96.4 fL (80.0-97.0); NRBC Per 100 WBC 0 /100 WBCS (0.0-0.0); Platelet Count 307 X 10*3/uL (140-440); RBC 2.77 X 10*6/uL (4.10-5.20); RDW 13.9 % (11.5-14.5); WBC 15.69 X 10*3/uL (4.50-10.00)
[2022-12-16 09:22] LABS: Albumin 2.5 g/dL (3.8-4.9); Albumin/Globulin Ratio 0.89 (1.60-3.17); Anion Gap 7.9 mmol/L (10.00-18.00); BUN/Creat Ratio 20.83 Ratio (12.00-20.00); Calcium 8.4 mg/dL (8.7-10.3); Carbon Dioxide 30.7 mmol/L (20.0-27.5); Globulin 2.8 g/dL (1.6-3.3); Magnesium 1.4 mg/dL (1.5-2.4); Non-African American GFR(CKD) 100.1 (60.0-200.0); Potassium 3.7 mmol/L (3.5-5.5); Total Bilirubin 0.6 mg/dL (0.30-1.20); Total Protein 5.2 g/dL (6.2-8.2)
--- NOTE | 2022-12-16 09:38 | P.PN ---
Subjective Progress Note Date: 12/16/22 Principal diagnosis: Sinus tachycardia The patient is a 67-year-old female patient with a past medical history significant for history of alcohol use as well as liver cirrhosis was admitted to the hospital with abdominal distention and she was diagnosed with bursitis. Subsequently she underwent paracentesis with removal of significant amount of fluid. She presented to the hospital she did not have any increase in the shortness of breath no lower extremities edema and no symptoms of chest pain or chest discomfort or any dizziness or lightheadedness or any heart racing or fluttering. We consulted to see the patient because of sinus tachycardia. She has been maintaining a heart rate around 110 beats per minutes. She is asymptomatic into of heart racing or fluttering or any feeling of the sinus tachycardia. As a mentioned earlier no symptoms of chest pain or chest discomfort. She underwent an EKG yesterday and that showed sinus tachycardia with low-voltage QRS and heart rate around 110 beats per minutes. Currently she is not on any AV nicki blocking agents. She is on diuretics including Lasix as well as Aldactone. An echocardiogram is in process to be done. The examination is remarkable for sinus tachycardia with soft systolic murmur at the right and l eft upper sternal border with a clear breathing sounds bilaterally and no carotid bruit and she has no lower extremities edema noted. The EKG was described above. 12/16/2022 The patient was seen and evaluated this morning. Yesterday d-dimer was checked and came in to be abnormal and subsequently CTA of the chest was performed and showed no evidence of pulmonary embolism but showed possible metastases cancer. Currently that is under investigation. Beside that she underwent an echocardiogram which revealed normal LV function with evidence off pulmonary hypertension and RV predilatation as well as tricuspid regurgitation. Overall she does have a poor prognosis. Hemodynamically she is stable was mild sinus tachycardia which could be multi-infarct or you. Currently she is on beta sherice which we will continue. From a cardiac standpoint of view, would continue the current medical regimen and follow-up with the patient on when necessary Assessment Anasarca Ascites Liver cirrhosis Sinus tachycardia Metastasis to the lungs/ Plan Continue the current medical regimen The tachycardia is likely to be multi-infarct sodium Follow-up with the patient Objective - Vital Signs Vital signs: Vital Signs Temp 98.5 F 12/16/22 02:00 Pulse 107 H 12/16/22 02:00 Resp 19 12/16/22 02:00 BP 109/62 12/16/22 02:00 Pulse Ox 95 12/16/22 02:00 FiO2 Intake & Output 12/15/22 12/16/22 12/16/22 18:59 06:59 18:59 Intake Total 50 Balance 50 Intake: Intake, IV Titration 50 Amount cefTRIAXone 1 gm In 50 Sodium Chloride 0.9% 50 ml @ 100 mls/hr IVPB Q24HR [facility] Rx#:[id number] Other: Voiding Method Toilet Diaper # Voids 2 2 1 # Bowel Movements 1 - Labs CBC & Chem 7: 12/16/22 05:38 12/16/22 05:38 Labs: Abnormal Lab Results - Last 24 Hours (Table) 12/16/22 12/16/22 Range/Units 05:38 05:38 WBC 15.69 H (4.50-10.00) X 10*3/uL RBC 2.77 L (4.10-5.20) X 10*6/uL Hgb 8.5 L (12.0-15.0) g/dL Hct 26.7 L (37.2-46.3) % MCHC 31.8 L (32.0-37.0) g/dL Carbon Dioxide 30.7 H (20.0-27.5) mmol/L Anion Gap 7.90 L (10.00-18.00) mmol/L Creatinine 0.5 L (0.6-1.5) mg/dL BUN/Creatinine Ratio 20.83 H (12.00-20.00) Ratio Calcium 8.4 L (8.7-10.3) mg/dL Magnesium 1.4 L (1.5-2.4) mg/dL AST 60 H (13-35) U/L Alkaline Phosphatase 146 H (41-126) U/L Total Protein 5.2 L (6.2-8.2) g/dL Albumin 2.5 L (3.8-4.9) g/dL Albumin/Globulin Ratio 0.89 L (1.60-3.17) g/dL Microbiology - Last 24 Hours (Table) 12/11/22 14:18 Anaerobic Culture - Final Ascites Fluid 12/11/22 14:18 Gram Stain - Final Ascites Fluid Body Fluid Culture - Final
--- NOTE | 2022-12-16 10:59 | P.PN ---
Subjective Progress Note Date: 12/16/22 Hospital course: Patient is a very pleasant 67-year-old female with a past medical history of COPD with continued nicotine dependence, daily alcohol use/abuse, and uterine and rectal prolapse. She presented to the emergency department on the evening of 12/10/22 with her daughter for evaluation of significant weight loss and increased abdominal distention and lower extremity edema progressively worsening over the past year and does not follow with a primary care doctor. Patient also reporting in addition to her rectal prolapse has gotten significantly worse and states her rectum/intestines "fall out" anytime she stands up or walks. Patient underwent full evaluation in the emergency department. Chest x-ray completed showing evidence of COPD but negative for acute intercranial process. EKG showing sinus mechanism at 89 bpm with no noted T-wave or ST abnormalities upon personal review and interpretation. Labs completed and reviewed. CBC showing leukocytosis with WBC count of 14.1 and normocytic anemia with hemoglobin of 10.7. Coagulation profile revealing an elevated PT of 12.3 and INR of 1.2. BMP revealing mild hyponatremia with sodium of 134 and a creatinine of 0.43. Calcium 8.0, however corrected calcium of 9.1 due to hypoalbuminemia with albumin of 2.6. Liver profile showing normal bilirubin of 1.1, AST of 61, ALT of 20, and alkaline phosphatase of 210. Magnesium 1.2 and was replaced in the emergency department. CT abdomen and pelvis with contrast was completed showing massive abdominal ascites fluid with changes in the liver consistent with cirrhosis, sigmoid diverticulosis without diverticulitis, a cystocele, small left fluid containing inguinal hernia, perirectal hernia containing ascites fluid, and poorly marginated hypodensities in the superior and inferior right lobes of the liver possibly secondary to fatty infiltrate however liver mass cannot be entirely excluded. Patient was admitted under our services with consultation to general surgery and gastroenterology. MELD-Na Score upon admission was 14 points with a less then 2% estimated 90 day mortality based upon elevated INR 1.2, sodium 134, creatinine 0.43, and liver profile showing normal bilirubin of 1.1, AST of 61, ALT of 20, and alkaline phosphatase of 210. Patient was admitted under our services with consultation to Gen. surgery and gastroenterology. She underwent paracentesis 12/12/22 with IR resulting in removal of approximately 1.2 L of ascitic fluid. Samples sent to lab for analysis and cytology testing. Ascitic fluid culture reviewed and preliminary results showing no growth to date and the fluid cytology results reviewed showing no cytologically malignant cells identified. Hepatitis panel resulting negative showing nonreactive. Alpha-fetoprotein marker 3.40. Gen. surgery and gastroenterology have signed off patient at this time recommending outpatient follow-up in their office.patient was initially to be discharged on 12/14/22 and to follow up outpatient with hotel valet attendant and general surgeon. However just after discharge order placed, patient was found to be tachycardic at a rate of 140 while at rest. Order placed for a stat EKG which revealed sinus tachycardia at 107 bpm with no noted T-wave or ST abnormalities showing no signs of acute ischemia. Discharge was canceled, echocardiogram ordered, and cardiology consult placed. Pt again had second episode of tachycardia 140s to 160s while at rest the morning on 12/14/22an EKG was obtained at that time showing sinus tachycardia at 111 bpm. Head Of [employer] evaluated patient, started her on metoprolol 12.5 mg daily ( low dose secondary to soft blood pressures with cirrhosis) and placed order for d-dimer. D-dimer resulting elevated at 7.72. Order then placed for CT PE and upon completions, radiologist report reviewed stating acute pulmonary emboli has been ruled out, however it was reported that pt has a nodularity within the right mid lung nonspecific and un able to rule out metastatic disease and primary neoplasm may also be considered. There are high concerns for underlying metastatic disease, especially with patient's reports of significant unintentional weight loss over the past year. concerns of possible colorectal cancer with patient's reports of constipation 3 years and rectal prolapse. These concerns were discussed with patient and her son and daughter at bedside. Pt is a poor surgical candidate. Oncology is consulted along with Palliative care as discussed with family. General surgeon was contacted and stated that they can be reconsulted if oncology feels pt should undergo colonoscopy for evaluation prior to discharge. Pt is unclear of whether or not she would like to proceed with colonoscopy at this time, stating she would like to discuss with Oncologist first as she is unclear if she will be able to tolerate prep for colonoscopy with her rectal prolapse. Echocardiogram completed and report reviewed showing an EF of 60-65% with a dilated right ventricle, moderate pulmonary hypertension, aneurysmal interatrial septum, aortic sclerosis, mild mitral regurgitation, and moderate to severe tricuspid regurgitation. Physical exam: Vital signs reviewed and stable. General: Cachectic appearance, appears older than her biological age, Emaciated with massive ascites Derm: Skin warm and dry, normal coloration for ethnicity. Head: Atraumatic, normocephalic and symmetric. Eyes: EOMs intact, no lid lag, and anicteric sclera Mouth: no lip lesions, mucus membranes moist Cardiovascular: regular rate and rhythm with normal S1S2, no murmur, positive posterior tibial pulses bilaterally, and cap refill < 2 seconds. Lungs: Respirations even, regular, and unlabored on room air. Lungs CTA bilaterally, no rhonchi, no rales, no wheezing, and no accessory muscle usage. Abdominal: Distended ascitic abdomen. Patient reports moderate rectal prolapse upon standing, retracted while sitting and lying. Ext: ROM intact. No gross muscle atrophy, no lower extremity edema, no contractures. Neuro: Speech clear, face symmetrical and CN II-XII grossly intact with no noted focal neuro deficits Psych: Alert and oriented to person, place, time, and situation. Appropriate and pleasant affect. 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 Lung Nodule, concerns for metastatic process Aneurysmal intra-atrial septum Moderate to severe tricuspid regurgitation Elevated d-dimer, CTA negative for PE Hypomagnesemia -Discussed pt and episodes of tachycardia with the bilingual branch manager, Dr. Maria, he reports from cardiology perspective no further recommendations at this time as pt's blood pressure and heart rate is stable with metoprolol 12.5 mg daily. -CTA chest completed 12/16/22 which ruled out acute pulmonary emboli but also reported that pt has a nodularity within the right mid lung nonspecific and unable to rule out metastatic disease and primary neoplasm may also be conside red. -There are high concerns for underlying metastatic disease, especially with patient's reports of significant unintentional weight loss over the past year. Concerns of possible colorectal cancer with patient's reports of constipation 3 years and rectal prolapse. These concerns were again discussed with patient whom would like to discuss with oncologist. Patient unclear of whether or not she would like to go home on palliative or hospice care versus proceed with treatment. Patient was advised that she is a poor surgical candidate due to advanced cirrhosis. -Oncology consulted along with Palliative care. -Also discussed findings and case with General surgeon and Dr. Jarrett stated that they can be reconsulted if oncology feels pt should undergo colonoscopy for evaluation prior to discharge. Pt remains unclear of whether or not she would like to proceed with colonoscopy at this time, stating she would like to discuss with Oncologist first as she is unclear if she will be able to tolerate prep for colonoscopy with her rectal prolapse. -Morning labs reviewed. CBC continues to show leukocytosis with WBC count of 15.69 and normocytic anemia with hemoglobin of 8.5. BMP showing bicarb 30.7, anion gap of 7.9, chloride of 96. Renal function stable. Magnesium low at 1.4 and orders placed for 3 g magnesium sulfate IVPB. Liver function remains elevated with AST of 60, alkaline phosphatase 146, and normal total bili of 0.60. -Order placed for morning labs including CBC to follow-up on persistent leukocytosis and slightly worsening anemia, CMP to continue to follow liver enzymes, and magnesium to monitor for resolution of hypomagnesemia. Hypokalemia, resolved. Rectal prolapse -Gen. surgery consulted for evaluation of rectal prolapse, Recommending outpatient colonoscopy with no surgical intervention planned at this time. COPD with continued nicotine dependence, not in acute exacerbation -Patient counseled on importance of smoking cessation and risks of continued use. -Continue Nicotine patch 21 mg every 24 hours. CODE STATUS: Full code DVT prophylaxis: SCDs Discussed with: patient, RN general surgeon, and bilingual branch manager. Anticipated discharge date: Clinical course to determine Anticipated discharge place: Home with home care Patient was seen independently by Nurse Pracitioner. This document was prepared using [employer] dictation software. Please allow for errors in histology teacher, while rare they do occur. I reviewed the documentation as provided by the BROCK above, who is the original author of this note. I agree with the documented assessment and plan, with the following changes: none Objective - Vital Signs Vital signs: Vital Signs Temp 98.5 F 12/16/22 02:00 Pulse 107 H 12/16/22 02:00 Resp 19 12/16/22 02:00 BP 109/62 12/16/22 02:00 Pulse Ox 95 12/16/22 02:00 FiO2 Intake & Output 12/15/22 12/16/22 12/16/22 18:59 06:59 18:59 Intake Total 50 Balance 50 Intake: Intake, IV Titration 50 Amount cefTRIAXone 1 gm In 50 Sodium Chloride 0.9% 50 ml @ 100 mls/hr IVPB Q24HR [facility] Rx#:[id number] Other: Voiding Method Toilet Diaper # Voids 2 2 1 # Bowel Movements 1 - Labs CBC & Chem 7: 12/16/22 05:38 12/16/22 05:38 Labs: Microbiology - Last 24 Hours (Table) 12/11/22 14:18 Anaerobic Culture - Final Ascites Fluid 12/11/22 14:18 Gram Stain - Final Ascites Fluid Body Fluid Culture - Final
[2022-12-16] MEDS: MAGNESIUM SULFATE-D5W PMX 1 GM in DEXTROSE/WATER 1 100ML.BAG IVPB SCH ×3 (12:49→16:23)
--- NOTE | 2022-12-16 15:55 | P.CONS ---
History of Present Illness - Reason for Consult Consult date: 12/16/22 Concern for malignancy - History of Present Illness Ms. Nickerson is a 67-year-old woman with a past medical history sniffing and for alcohol abuse who presented on 12/10/2022 with increased weight loss, lower extremity swelling, and abdominal distention who we are consulted with regards to concern for malignancy. CT abdomen/pelvis on 12/10/2022 noted cirrhosis of the liver with large abdominal ascites. No discrete liver mass was visualized, however, there was a poorly marginated hypodensity in the superior/inferior right hepatic lobes. This was concerning for fatty infiltration, but liver mass cannot be excluded. She underwent large-volume diagnostic/therapeutic paracentesis on 12/12/2022, which removed 1.2 L of ascitic fluid. Cytology was negative for malignancy. Alpha- fetoprotein was noted to be 3.4. She was set to be discharged on 12/14/2022, when she developed episode of tachycardia, with heart rates into the 140s. Cardiology was consulted and CT PE was obtained on 12/15/2022, which revealed no evidence of pulmonary embolism. It did note a 0.6 cm nodule in the lateral right midlung along with apical scarring and emphysematous changes in the bilateral lungs with minimal bilateral pleural effusions. Given this finding, oncology was consulted for additional management recommendations. Prior to presentation, Ms. Nickerson notes significant alcohol intake. She notes she previously used to drink multiple cans of beer a day (she was not able to specify exactly how many), but notes that she switch to whiskey with cola around the onset of the pandemic as her drink of choice. She notes not eating a regu lar diet during this time and having lost weight secondary to not eating meals. She did have constipation during this time, but notes this was intermittent in nature and denied any melena, hematochezia, or black or blood per rectum. She denies any lymphadenopathy, fevers, chills, night sweats, hemoptysis, or dyspnea on exertion. Since admission, she notes significant improvement in her leg swelling. She is eating more regular meals and is having more regular bowel movements which appear normal. Review of CBC notes WBC 15.69 with neutrophilic differentiation, hemoglobin 8.5 (MCV 96.4), platelets 307. Review of Systems 14 point review of systems was conducted with pertinent positive negatives noted per HPI Past Medical History Past Medical History: COPD, GERD/Reflux, Hyperlipidemia, Hypertension Additional Past Medical History / Comment(s): urinary leakage,uterine prolapse History of Any Multi-Drug Resistant Organisms: None Reported Past Surgical History: Hernia Repair, Orthopedic Surgery Additional Past Surgical History / Comment(s): umbilical hernia repair,ORIF lt wrist,carpel tunnel ruby wrist,rt hand tendon repair,facial reconstruction-metal plate chin-repair mult fx around lt eye and face,teeth removed,rt cheek skin fatty tumor removed Past Anesthesia/Blood Transfusion Reactions: No Reported Reaction Additional Past Anesthesia/Blood Transfusion Reaction / Comm: no hx blood transfusion Past Psychological History: Anxiety Additional Psychological History / Comment(s): hx post depression Smoking Status: Current every day smoker Past Alcohol Use History: Occasional Additional Past Alcohol Use History / Comment(s): smokes 1ppd,started smoking at age 15 Past Drug Use History: None Reported - Past Family History Mother Family Medical History: Cancer Additional Family Medical History / Comment(s): renal cell carcinoma Father Family Medical History: Cancer Additional Family Medical History / Comment(s): brain Son(s) Family Medical History: Congestive Heart Failure (CHF), Renal Disease Additional Family Medical History / Comment(s): obesity,hemodialysis,MRSA Medications and Allergies Home Medications Medication Instructions Recorded Confirmed Type Furosemide [Lasix] 40 mg PO DAILY #30 tab 12/13/22 Rx Spironolactone [Aldactone] 100 mg PO DAILY #30 tab 12/13/22 Rx Allergies Allergy/AdvReac Type Severity Reaction Status Date / Time meperidine [From Demerol] Allergy Dyspnea Verified 12/10/22 21:45 Physical Exam Vitals: Vital Signs Temp Pulse Pulse Resp BP Pulse Ox 12/16/22 14:00 98.6 F 56 L 16 106/64 100 12/16/22 08:19 98.2 F 104 H 16 102/63 100 12/16/22 02:00 98.5 F 107 H 19 109/62 95 12/15/22 20:00 98.6 F 111 H 17 116/71 94 L Intake and Output 12/16/22 12/16/22 12/16/22 06:59 14:59 22:59 Other: # Voids 2 1 # Bowel Movements 1 Cachectic, no acute distress - EENT Eyes: EOMI - Neck Neck: no lymphadenopathy - Respiratory Respiratory: bilateral: CTA - Cardiovascular Rhythm: regular - Gastrointestinal Positive fluid wave consistent with ascites General gastrointestinal: distended, soft, no tenderness - Neurologic Neurologic: CNII-XII intact Results CBC & Chem 7: 12/16/22 05:38 12/16/22 05:38 Labs: Abnormal Lab Results - Last 24 Hours (Table) 12/16/22 12/16/22 Range/Units 05:38 05:38 WBC 15.69 H (4.50-10.00) X 10*3/uL RBC 2.77 L (4.10-5.20) X 10*6/uL Hgb 8.5 L (12.0-15.0) g/dL Hct 26.7 L (37.2-46.3) % MCHC 31.8 L (32.0-37.0) g/dL Carbon Dioxide 30.7 H (20.0-27.5) mmol/L Anion Gap 7.90 L (10.00-18.00) mmol/L Creatinine 0.5 L (0.6-1.5) mg/dL BUN/Creatinine Ratio 20.83 H (12.00-20.00) Ratio Calcium 8.4 L (8.7-10.3) mg/dL Magnesium 1.4 L (1.5-2.4) mg/dL AST 60 H (13-35) U/L Alkaline Phosphatase 146 H (41-126) U/L Total Protein 5.2 L (6.2-8.2) g/dL Albumin 2.5 L (3.8-4.9) g/dL Albumin/Globulin Ratio 0.89 L (1.60-3.17) g/dL Microbiology - Last 24 Hours (Table) 12/11/22 14:18 Anaerobic Culture - Final Ascites Fluid 12/11/22 14:18 Gram Stain - Final Ascites Fluid Body Fluid Culture - Final CT scan - abdomen: image reviewed CT scan - chest: image reviewed Assessment and Plan (1) Anemia Current Visit: Yes Status: Acute Code(s): D64.9 - ANEMIA, UNSPECIFIED SNOMED Code(s): 313448034 (2) Cirrhosis Current Visit: Yes Status: Acute Code(s): K74.60 - UNSPECIFIED CIRRHOSIS OF LIVER SNOMED Code(s): 92004816 (3) Leukocytosis Current Visit: Yes Status: Acute Code(s): D72.829 - ELEVATED WHITE BLOOD CELL COUNT, UNSPECIFIED SNOMED Code(s): 025067695 Plan: Cirrhosis complicated by ascites, anasarca, and weight loss -Ms. Nickerson presented with progressive abdominal ascites and anasarca of the lower extremities -CT abdomen/pelvis on admission noted large volume ascites with cirrhotic liver morphology and no definitive evidence of liver mass, but a poorly marginated hypodensity in the superior and inferior right hepatic lobes was visualized and could not exclude a liver mass -Large-volume paracentesis performed on 12/12/2022 noted ascitic fluid cytology was negative for malignancy with normal alpha-fetoprotein -CT PE noted 0.6 cm nodule in the lateral right midlung along with apical scarring with emphysematous changes bilaterally -Changes on CT PE are likely secondary to cigarette smoking as opposed to metastatic malignancy -Her overall presentation clinically appears to be more consistent with significant alcohol abuse resulting in end-stage liver disease as opposed to metastatic malignancy -I did recommend obtaining MRI of the liver with and without contrast to better visualize the liver due to the vague hypodensity noted on initial CT abdomen/pelvis -She has been recommended to undergo a colonoscopy with the GI service, who was active in her care -From an oncology perspective, there is no indication to have this done inpatient Neutrophilic leukocytosis, normocytic anemia -Neutrophilic leukocytosis likely secondary to cirrhosis with possible superimposed SBP, which is being covered with ceftriaxone -Her anemia can be attributed to alcohol use, although this appears to be more normocytic and not macrocytic as is typically seen with alcohol abuse -Vitamin B12, folate, ferritin, iron panel have been recommended for work-up of her normocytic anemia to assess for other nutritional etiologies
[2022-12-16 20:34] LABS: % Iron Saturation 6.47 (12.00-45.00); Ferritin 38.6 ng/mL (10.0-291.0)
[2022-12-17] MEDS: SPIRONOLACTONE 25 MG TAB PO SCH (08:28)
[2022-12-17] MEDS: METOPROLOL SUCCINATE (ER) 25 MG TAB.ER.24H PO SCH (08:28)
[2022-12-17] MEDS: NICOTINE 21MG/24HR PATCH TRANSDERM SCH (08:28)
[2022-12-17] MEDS: FUROSEMIDE 40 MG TAB PO SCH (08:28)
[2022-12-17] MEDS ORDERED: SODIUM FERRIC GLUCONAT-SUCROSE 125 MG in SODIUM CHLORIDE 0.9% 100 ML IVPB SCH (09:15)
[2022-12-17] MEDS ORDERED: FOLIC ACID 1 MG TAB PO SCH (09:15)
[2022-12-17] MEDS ORDERED: ALPRAZolam 0.25 MG TAB PO PRN (11:53)
--- NOTE | 2022-12-17 13:07 | P.PN ---
Subjective Progress Note Date: 12/17/22 Hospital course: Patient is a very pleasant 67-year-old female with a past medical history of COPD with continued nicotine dependence, daily alcohol use/abuse, and uterine and rectal prolapse. She presented to the emergency department on the evening of 12/10/22 with her daughter for evaluation of significant weight loss and increased abdominal distention and lower extremity edema progressively worsening over the past year and does not follow with a primary care doctor. Patient also reporting in addition to her rectal prolapse has gotten significantly worse and states her rectum/intestines "fall out" anytime she stands up or walks. Patient underwent full evaluation in the emergency department. Chest x-ray completed showing evidence of COPD but negative for acute intercranial process. EKG showing sinus mechanism at 89 bpm with no noted T-wave or ST abnormalities upon personal review and interpretation. Labs completed and reviewed. CBC showing leukocytosis with WBC count of 14.1 and normocytic anemia with hemoglobin of 10.7. Coagulation profile revealing an elevated PT of 12.3 and INR of 1.2. BMP revealing mild hyponatremia with sodium of 134 and a creatinine of 0.43. Calcium 8.0, however corrected calcium of 9.1 due to hypoalbuminemia with albumin of 2.6. Liver profile showing normal bilirubin of 1.1, AST of 61, ALT of 20, and alkaline phosphatase of 210. Magnesium 1.2 and was replaced in the emergency department. CT abdomen and pelvis with contrast was completed showing massive abdominal ascites fluid with changes in the liver consistent with cirrhosis, sigmoid diverticulosis without diverticulitis, a cystocele, small left fluid containing inguinal hernia, perirectal hernia containing ascites fluid, and poorly marginated hypodensities in the superior and inferior right lobes of the liver possibly secondary to fatty infiltrate however liver mass cannot be entirely excluded. Patient was admitted under our services with consultation to general surgery and gastroenterology. MELD-Na Score upon admission was 14 points with a less then 2% estimated 90 day mortality based upon elevated INR 1.2, sodium 134, creatinine 0.43, and liver profile showing normal bilirubin of 1.1, AST of 61, ALT of 20, and alkaline phosphatase of 210. Patient was admitted under our services with consultation to Gen. surgery and gastroenterology. She underwent paracentesis 12/12/22 with IR resulting in removal of approximately 1.2 L of ascitic fluid. Samples sent to lab for analysis and cytology testing. Ascitic fluid culture reviewed and preliminary results showing no growth to date and the fluid cytology results reviewed showing no cytologically malignant cells identified. Hepatitis panel resulting negative showing nonreactive. Alpha-fetoprotein marker 3.40. Gen. surgery and gastroenterology have signed off patient at this time recommending outpatient follow-up in their office.patient was initially to be discharged on 12/14/22 and to follow up outpatient with distribution superintendent and general surgeon. However just after discharge order placed, patient was found to be tachycardic at a rate of 140 while at rest. Order placed for a stat EKG which revealed sinus tachycardia at 107 bpm with no noted T-wave or ST abnormalities showing no signs of acute ischemia. Discharge was canceled, echocardiogram ordered, and cardiology consult placed. Pt again had second episode of tachycardia 140s to 160s while at rest the morning on 12/14/22an EKG was obtained at that time showing sinus tachycardia at 111 bpm. Military Technician evaluated patient, started her on metoprolol 12.5 mg daily ( low dose secondary to soft blood pressures with cirrhosis) and placed order for d-dimer. D-dimer resulting elevated at 7.72. Order then placed for CT PE and upon completions, radiologist report reviewed stating acute pulmonary emboli has been ruled out, however it was reported that pt has a nodularity within the right mid lung nonspecific and un able to rule out metastatic disease and primary neoplasm may also be considered. There are high concerns for underlying metastatic disease, especially with patient's reports of significant unintentional weight loss over the past year. concerns of possible colorectal cancer with patient's reports of constipation 3 years and rectal prolapse. These concerns were discussed with patient and her son and daughter at bedside. Pt is a poor surgical candidate. Oncology is consulted along with Palliative care as discussed with family. General surgeon was contacted and stated that they can be reconsulted if oncology feels pt should undergo colonoscopy for evaluation prior to discharge. Pt is unclear of whether or not she would like to proceed with colonoscopy at this time, stating she would like to discuss with Oncologist first as she is unclear if she will be able to tolerate prep for colonoscopy with her rectal prolapse. Echocardiogram completed and report reviewed showing an EF of 60-65% with a dilated right ventricle, moderate pulmonary hypertension, aneurysmal interatrial septum, aortic sclerosis, mild mitral regurgitation, and moderate to severe tricuspid regurgitation. Physical exam: Patient seen and fully evaluated at the bedside. She is scheduled to undergo MRI of liver later today and we are making arrangements for likely discharge ho dc within the next 24 hours on palliative care. Patient to follow up outpatient with distribution superintendent and general surgery as discussed. Patient currently reports feeling weak but otherwise denies having any pain or complaints at this time. Vital signs reviewed and stable. General: Cachectic appearance, appears older than her biological age, Emaciated with massive ascites Derm: Skin warm and dry, normal coloration for ethnicity. Head: Atraumatic, normocephalic and symmetric. Eyes: EOMs intact, no lid lag, and anicteric sclera Mouth: no lip lesions, mucus membranes moist Cardiovascular: regular rate and rhythm with normal S1S2, no murmur, positive posterior tibial pulses bilaterally, and cap refill < 2 seconds. Lungs: Respirations even, regular, and unlabored on room air. Lungs CTA bilaterally, no rhonchi, no rales, no wheezing, and no accessory muscle usage. Abdominal: Distended ascitic abdomen. Patient reports moderate rectal prolapse upon standing, retracted while sitting and lying. Ext: ROM intact. No gross muscle atrophy, no lower extremity edema, no contractures. Neuro: Speech clear, face symmetrical and CN II-XII grossly intact with no noted focal neuro deficits Psych: Alert and oriented to person, place, time, and situation. Appropriate and pleasant affect. 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 Lung Nodule, concerns for metastatic process Aneurysmal intra-atrial septum Moderate to severe tricuspid regurgitation Elevated d-dimer, CTA negative for PE Hypomagnesemia Hypokalemia, resolved. Rectal prolapse -Patient was evaluated by gastroenterology, recommending outpatient follow-up in their office one week after discharge and continuation of Aldactone 100 mg daily and Lasix 40 mg daily. -Cardiology following and review documentation on chart, cardiology recommending continuation with metoprolol 12.5 mg daily. -Gen. surgery following, recommending outpatient follow-up for patient's requested colonoscopy with no surgical intervention planned at this time for treatment of rectal prolapse secondary to patient being a high risk surgical candidate.. -Oncology following and discussed plan of care with oncologist. He is re commending patient undergo MRI liver this afternoon and further recommendations based on findings. Dr. Atkins recommended patient undergo outpatient colonoscopy. -Palliative care has been consulted secondary to advanced cirrhosis and severe protein calorie malnutrition. Discussed plan of care with Col[facility] [employer] with palliative care. Patient is being discharged home with palliative care and home care and will require raised toilet seat and a hospital bed upon discharge secondary to weakness and overall decompensated condition resulting from advanced liver cirrhosis. -Patient is scheduled to undergo MRI of liver later today. -Order placed for morning labs including CBC to follow-up on persistent leukocytosis and anemia, CMP to continue to follow liver enzymes, and magnesium to monitor for resolution of hypomagnesemia. COPD with continued nicotine dependence, not in acute exacerbation -Patient counseled on importance of smoking cessation and risks of continued use. -Continue Nicotine patch 21 mg every 24 hours. CODE STATUS: Full code DVT prophylaxis: SCDs Discussed with: patient, RN general surgeon, and video tape editor. Anticipated discharge date: Clinical course to determine Anticipated discharge place: Home with home care Patient was seen independently by Nurse Pracitioner. This document was prepared using [employer] dictation software. Please allow for errors in fifth hand, while rare they do occur. Objective - Vital Signs Vital signs: Vital Signs Temp 98.5 F 12/17/22 06:51 Pulse 92 12/17/22 06:51 Resp 18 12/17/22 06:51 BP 114/71 12/17/22 06:51 Pulse Ox 95 12/17/22 06:51 FiO2 Intake & Output 12/16/22 12/17/22 12/17/22 18:59 06:59 18:59 Other: Voiding Method Toilet Diaper # Voids 3 3 # Bowel Movements 1 1 - Labs CBC & Chem 7: 12/16/22 05:38 12/16/22 05:38 Labs: Abnormal Lab Results - Last 24 Hours (Table) 12/16/22 12/16/22 12/16/22 Range/Units 05:38 05:38 05:38 WBC 15.69 H (4.50-10.00) X 10*3/uL RBC 2.77 L (4.10-5.20) X 10*6/uL Hgb 8.5 L (12.0-15.0) g/dL Hct 26.7 L (37.2-46.3) % MCHC 31.8 L (32.0-37.0) g/dL Carbon Dioxide 30.7 H (20.0-27.5) mmol/L Anion Gap 7.90 L (10.00-18.00) mmol/L Creatinine 0.5 L (0.6-1.5) mg/dL BUN/Creatinine Ratio 20.83 H (12.00-20.00) Ratio Calcium 8.4 L (8.7-10.3) mg/dL Magnesium 1.4 L (1.5-2.4) mg/dL Iron 18 L (50-170) ug/dL % Saturation 6.47 L (12.00-45.00) Transferrin 202.0 L (204.0-354.0) mg/dL AST 60 H (13-35) U/L Alkaline Phosphatase 146 H (41-126) U/L Total Protein 5.2 L (6.2-8.2) g/dL Albumin 2.5 L (3.8-4.9) g/dL Albumin/Globulin Ratio 0.89 L (1.60-3.17) g/dL
--- NOTE | 2022-12-17 13:09 | MR ---
EXAMINATION TYPE: MR liver wo/w con DATE OF EXAM: 12/17/2022 COMPARISON: CT abdomen and pelvis one week ago HISTORY: Ascites, cirrhosis, abnormal CT/US. CONTRAST: Standard multiplanar, multisequence MRI departmental protocol images were obtained without contrast a nd with 4.5 mL intravenous Gadavist gadolinium contrast. Imaging performed of the abdomen focusing o n the liver. FINDINGS: Liver: Liver remains normal in size. No significant dropout is seen. No intraluminal gallstones. No b iliary dilatation. Dynamic postcontrast imaging shows no definitive solid or cystic mass. There is a patent nondilated main portal vein. There are patent hepatic veins draining into the IVC. Other: The spleen and pancreas appear within normal limits. Adrenal glands not well seen presumably n ormal. No concerning renal mass or hydronephrosis seen bilaterally. Intra-abdominal ascites greatest near the liver is less prominent versus recent CT, paracentesis performed December 11 is noted in the in terval. Patient has little intra-abdominal fat. There is no suspicious small or large bowel dilatatio n. There is levoconvex scoliosis centered at L2 level. There is Trace left pleural effusion on curren t study. IMPRESSION: No worrisome intrahepatic mass or intrahepatic ductal dilatation seen on this study.
--- NOTE | 2022-12-17 13:11 | P.CONS ---
History of Present Illness - Reason for Consult Consult date: 12/17/22 Goals of care Requesting physician: Roverto Castillo - History of Present Illness The patient is a 67-year-old female with past medical history significant for COPD, GERD, hyperlipidemia, hypertension, ETOH abuse, and is a current smoker. The patient presented to the emergency department on 12/10/22, when her daughter insisted is felt that she could evaluated for her abdominal distention and significant weight loss. Chest x-ray completed showing evidence of COPD. EKG showing sinus mechanism at 89 bpm with no noted T-wave or ST abnormalities upon personal review and interpretation. CT abdomen and pelvis with contrast was completed showing massive abdominal ascites fluid with changes in the liver consistent with cirrhosis, sigmoid diverticulosis without diverticulitis, a cystocele, small left fluid containing inguinal hernia, perirectal hernia containing ascites fluid, and poorly marginated hypodensities in the superior and inferior right lobes of the liver possibly secondary to fatty infiltrate however liver mass cannot be entirely excluded.MELD-Na Score upon admission was 14 points with a less then 2% estimated 90 day mortality based upon elevated INR 1.2, sodium 134, creatinine 0.43, and liver profile showing normal bilirubin of 1.1, AST of 61, ALT of 20, and alkaline phosphatase of 210. She underwent paracentesis 12/12/22 with IR resulting in removal of approximately 1.2 L of asci tic fluid. Samples sent to lab for analysis and cytology testing. Ascitic fluid culture reviewed and preliminary results showing no growth to date and the fluid cytology results reviewed showing no cytologically malignant cells identified. Hepatitis panel resulting negative showing nonreactive. Alpha-fetoprotein marker 3.40. The patient was initially to be discharged on 12/14/22 and to follow up outpatient with speech language pathologist and general surgeon. However just after discharge order placed, patient was found to be tachycardic at a rate of 140 while at rest. Order placed for a stat EKG which revealed sinus tachycardia at 107 bpm with no noted T-wave or ST abnormalities showing no signs of acute ischemia. Discharge was canceled, echocardiogram ordered, and cardiology consult placed. Patient again had second episode of tachycardia 140s to 160s while at rest the morning on 12/14/22an EKG was obtained at that time showing sinus tachycardia at 111 bpm. Hospital Technician evaluated patient, started her on metoprolol and placed order for d-dimer. D-dimer resulting elevated at 7.72. Echocardiogram completed and report reviewed showing an EF of 60-65% with a dilated right ventricle, moderate pulmonary hypertension, aneurysmal interatrial septum, aortic sclerosis, mild mitral regurgitation, and moderate to severe tricuspid regurgitation.Order then placed for CT PE and upon completions, radi ologist report reviewed stating acute pulmonary emboli has been ruled out, however it was reported that pt has a nodularity within the right mid lung nonspecific and unable to rule out metastatic disease and primary neoplasm may also be considered. There are high concerns for underlying metastatic disease, especially with patient's reports of significant unintentional weight loss over the past year. Oncology ordered Arturo of the liver with and without contrast to better visualize the liver due to the vague hypodensity noted on initial CT abdomen/pelvis. Ascitic fluid cytology was negative for malignancy with normal alpha- fetoprotein. Changes on CT PE are likely secondary to cigarette smoking as opposed to metastatic malignancy. Her overall presentation clinically appears to be more consistent with significant alcohol abuse resulting in end-stage liver disease as opposed to metastatic malignancy. She has been recommended to undergo a colonoscopy with the GI service Review of Systems Constitutional: Reports as per HPI Past Medical History Past Medical History: COPD, GERD/Reflux, Hyperlipidemia, Hypertension Additional Past Medical History / Comment(s): urinary leakage,uterine prolapse History of Any Multi-Drug Resistant Organisms: None Reported Past Surgical History: Hernia Repair, Orthopedic Surgery Additional Past Surgical History / Comment(s): umbilical hernia repair,ORIF lt wrist,carpel tunnel ruby wrist,rt hand tendon repair,facial reconstruction-metal plate chin-repair mult fx around lt eye and face,teeth removed,rt cheek skin fatty tumor removed Past Anesthesia/Blood Transfusion Reactions: No Reported Reaction Additional Past Anesthesia/Blood Transfusion Reaction / Comm: no hx blood transfusion Past Psychological History: Anxiety Additional Psychological History / Comment(s): hx post depression Smoking Status: Current every day smoker Past Alcohol Use History: Occasional Additional Past Alcohol Use History / Comment(s): smokes 1ppd,started smoking at age 15 Past Drug Use History: None Reported - Past Family History Mother Family Medical History: Cancer Additional Family Medical History / Comment(s): renal cell carcinoma Father Family Medical History: Cancer Additional Family Medical History / Comment(s): brain Son(s) Family Medical History: Congestive Heart Failure (CHF), Renal Disease Additional Family Medical History / Comment(s): obesity,hemodialysis,MRSA Medications and Allergies Home Medications Medication Instructions Recorded Confirmed Type Furosemide [Lasix] 40 mg PO DAILY #30 tab 12/13/22 Rx Spironolactone [Aldactone] 100 mg PO DAILY #30 tab 12/13/22 Rx Allergies Allergy/AdvReac Type Severity Reaction Status Date / Time meperidine [From Demerol] Allergy Dyspnea Verified 12/10/22 21:45 Physical Exam Vitals: Vital Signs Temp Pulse Resp BP Pulse Ox 12/17/22 06:51 98.5 F 92 18 114/71 95 12/17/22 01:51 97.6 F 99 17 112/68 95 12/16/22 19:53 96.7 F L 78 16 114/72 96 12/16/22 14:00 98.6 F 56 L 16 106/64 100 Intake and Output 12/16/22 12/17/22 12/17/22 22:59 06:59 14:59 Other: Voiding Method Toilet Toilet Diaper Diaper # Voids 3 3 # Bowel Movements 1 General: Chronically ill appearing. Appears older than stated age. Cachectic. HEENT: Head is atraumatic, normocephalic. Mucus membranes moist. Lungs: Respirations even and nonlabored. On RA Abdomen/GI: Distended. Musculoskeletal/ Extremities: No joint deformity or swelling. + generalized weakness Skin: Warm and dry Neurologic: Awake, alert and oriented times 3. CN II-XII grossly intact. No focal deficits. Psychiatric: Appropriate mood and affect. Results CBC & Chem 7: 12/16/22 05:38 12/16/22 05:38 Labs: Abnormal Lab Results - Last 24 Hours (Table) 12/16/22 Range/Units 05:38 Iron 18 L (50-170) ug/dL % Saturation 6.47 L (12.00-45.00) Transferrin 202.0 L (204.0-354.0) mg/dL Chest x-ray: report reviewed CT scan - abdomen: report reviewed CT scan - chest: report reviewed CT scan - pelvis: report reviewed Assessment and Plan Assessment: Social * Occupation - Retired * Marital status - * Children/grandchildren - 4 adult children. 2 daughters and 2 sons * Residence - Apartment * Who do you reside with - Lives alone * ETOH - History of ETOH abuse, denies recent drinking * Tobacco - Current smoker * Illicit drugs - None reported Spiritual/Cultural * A spiritual person - No Functional Assessment * Able to walk independently - Yes * Assistive devices - Walker * Able to use the bathroom independently - Yes * Continent - Occasional incontinence 2/2 urgency from diuretics * Require assistance bathing- No * Able to feed self - Yes * Who prepares meals - Patient * How many meals a day eaten - 2 * Able to clean house/do laundry - Yes * Transportation - Neighbors and family * Able to shop - Yes * Who manages medications -Patient * Who manages finances - Patient PPS score - 60% Safety * In home/residence - Yes * In relationships - Yes Psychological/Emotional * Dementia present - No * Insight and judgment - Intact * Depression - No * Suicidal thoughts - No * Good support system - Yes, neighbors and her children * Patients goals - prolonged survival * Frequent hospitalizations - No * Desire to keep coming back to the hospital for treatment - Yes Symptoms * Pain - 0/10 * Fatigue - + generallized weakness and fatigue * SOB - Yes, with activity. Continue Albuterol, Atrovent, Aldactone, and Lasix * Insomnia - Yes, added Melatonin * N/V - No * Anxiety - Yes, has occasional panic attacks, added Xanax prn * Depression - No * Confusion - No * Agitation - No * Hallucinations - No * Appetite/weight loss - Patient states her appetite has improved. Continue heart healthy diet and Ensure supplements/Magic cups * Dysphagia - No * Constipation - No, LBM today * Incontinence - Occasional, urgency secondary to diuretics * Itch - No * Cough - Yes, chronic Plan: Summary/Goals - Information regarding Palliative care and hospice philosophies and services provided. The patient was educated about her cirrhosis/end-stage liver disease. Her MELD score and mortality rate explained. The patient is emaciated. She states she has quit drinking and is eating better. Patient educated on her severe protein calorie malnutrition and the correlation with her ascites and anasarca. She agrees to continue supplementing her diet with ensure at home. She reports having occasional incontinence especially at night due to urgency secondary to her diuretics. Suggested that she try and take them earlier in the day and suggested a bedside commode to decrease her fall risk at home. She reports feeling weaker now and has not been out of the bed very much. She reluctantly agreed to PT/OT upon discharge. She was frightened by the word "cancer" and was relieved to talk with the oncologist. She now understands that a work up had to be done to investigate and rule out malignancy. The patient is awaiting her MRI and then is hopeful to be discharged later today. She has also agreed to follow up with GI and have an outpatient colonoscopy. She lives alone in an apartment, but states her neighbors really look after one another. Her daughter, Kendall, and her son, Rudy, check on her frequently. The patient states that even prior to admission she would have occasional severe anxiety/panic attacks which would make it difficult to breathe and she feels like she is going to pass out. She puts her head between her knees until the feeling passes. Smoking cessation education provided. She has agreed to palliative care to assist with symptom management, PT/OT, and home care upon discharge. Care management aware. Recommendations - Home with palliative care when cleared medically Advanced Directives - None on file Code Status - Full code Thank you for this consultation Colleen Patterson [facility]- [facility] [id number] Email: [email or web address]
[2022-12-17 15:40] VITALS: BP 97/65; PULSE 117; RESP 15; TEMP 97.2
--- NOTE | 2022-12-17 16:23 | P.DS ---
Providers Date of admission: 12/11/22 00:11 Expected date of discharge: 12/17/22 Attending physician: Yoel Prajapati MD Consults: 12/11/22 08:57 Consult Physician Routine Consulting Provider: Danelle Russell Consult Reason/Comments: cirrhosis Do you want consulting provider notified?: Yes 12/14/22 14:56 Consult Physician Routine Consulting Provider: Raymundo Barroso Consult Reason/Comments: tachycardia Do you want consulting provider notified?: Yes 12/15/22 09:48 Consult to Palliative Care Routine Consulting Provider: Colleen Patterson Consult Reason/Comments: alcohol liver cirrhosis, multiple comorbidities Do you want consulting provider notified?: Yes 12/15/22 12:30 Consult Physician Routine Consulting Provider: David Tripp Consult Reason/Comments: concerns for metastatic cancer Do you want consulting provider notified?: Yes Primary care physician: Stated None Hospital Course: Discharge Diagnosis: Cirrhosis with severe ascites, 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 Lung Nodule, concerns for metastatic process. Aneurysmal intra-atrial septum. Moderate to severe tricuspid regurgitation. Elevated d-dimer, CTA negative for PE. Hypomagnesemia. Hypokalemia, resolved. Rectal prolapse COPD with continued nicotine dependence, not in acute exacerbation. Recommend smoking cessation. Hospital Course: Patient is a very pleasant 67-year-old female with a past medical history of COPD with continued nicotine dependence, daily alcohol use/abuse, and uterine and rectal prolapse. She presented to the emergency department on the evening of 12/10/22 with her daughter for evaluation of significant weight loss and increased abdominal distention and lower extremity edema progressively worsening over the past year and does not follow with a primary care doctor. Patient also reporting in addition to her rectal prolapse has gotten significantly worse and states her rectum/intestines "fall out" anytime she stands up or walks. Patient underwent full evaluation in the emergency department. Chest x-ray completed showing evidence of COPD but negative for acute intercranial process. EKG showing sinus mechanism at 89 bpm with no noted T-wave or ST abnormalities upon personal review and interpretation. Labs completed and reviewed. CBC showing leukocytosis with WBC count of 14.1 and normocytic anemia with hemoglobin of 10.7. Coagulation profile revealing an elevated PT of 12.3 and INR of 1.2. BMP revealing mild hyponatremia with sodium of 134 and a creatinine of 0.43. Calcium 8.0, however corrected calcium of 9.1 due to hypoalbuminemia with albumin of 2.6. Liver profile showing normal bilirubin of 1.1, AST of 61, ALT of 20, and alkaline phosphatase of 210. Magnesium 1.2 and was replaced in the emergency department. CT abdomen and pelvis with contrast was completed showing massive abdominal ascites fluid with changes in the liver consistent with cirrhosis, sigmoid diverticulosis without diverticulitis, a cystocele, small left fluid containing inguinal hernia, perirectal hernia containing ascites fluid, and poorly marginated hypodensities in the superior and inferior right lobes of the liver possibly secondary to fatty infiltrate however liver mass cannot be entirely excluded. Patient was admitted under our services with consultation to general surgery and gastroenterology. MELD-Na Score upon admission was 14 points with a less then 2% estimated 90 day mortality based upon elevated INR 1.2, sodium 134, creatinine 0.43, and liver profile showing normal bilirubin of 1.1, AST of 61, ALT of 20, and alkaline phosphatase of 210. Patient was admitted under our services with consultation to Gen. surgery and gastroenterology. She underwent paracentesis 12/12/22 with IR resulting in removal of approximately 1.2 L of ascitic fluid. Samples sent to lab for analysis and cytology testing. Ascitic fluid culture reviewed and preliminary results showing no growth to date and the fluid cytology results reviewed showing no cytologically malignant cells identified. Hepatitis panel resulting negative showing nonreactive. Alpha-fetoprotein marker 3.40. Patient was evaluated by gastroenterology, recommending outpatient follow-up in their office one week after discharge and continuation of Aldactone 100 mg daily and Lasix 40 mg daily. Gen. surgery and gastroenterology have signed off patient at this time recommending outpatient follow-up in their office.patient was initially to be discharged on 12/14/22 and to follow up outpatient with junior account executive and general surgeon. However just after discharge order placed, patient was found to be tachycardic at a rate of 140 while at rest. Order placed for a stat EKG which revealed sinus tachycardia at 107 bpm with no noted T-wave or ST abnormalities showing no signs of acute ischemia. Discharge was canceled, echocardiogram ordered, and cardiology consult placed. Pt again had second episode of tachycardia 140s to 160s while at rest the morning on 12/14/22an EKG was obtained at that time showing sinus tachycardia at 111 bpm. Dermatological Surgeon evaluated patient, started her on metoprolol 12.5 mg daily ( low dose secondary to soft blood pressures with cirrhosis) and placed order for d-dimer. D-dimer resulting elevated at 7.72. Order then placed for CT PE and upon completions, radiologist report reviewed stating acute pulmonary emboli has been ruled out, however it was reported that pt has a nodularity within the right mid lung nonspecific and unable to rule out metastatic disease and primary neoplasm may also be considered. There are high concerns for underlying metastatic disease, especially with patient's reports of significant unintentional weight loss over the past year. concerns of possible colorectal cancer with patient's reports of constipation 3 years and severe rectal prolapse. These concerns were discussed with patient and her son and daughter at bedside. Pt is a poor surgical can didate. Oncology and Palliative General surgeon was contacted and stated that they can be reconsulted if oncology feels pt should undergo colonoscopy for evaluation prior to discharge. Pt is unclear of whether or not she would like to proceed with colonoscopy at this time, stating she would like to discuss with Oncologist first as she is unclear if she will be able to tolerate prep for colonoscopy with her rectal prolapse. Echocardiogram completed and report reviewed showing an EF of 60-65% with a dilated right ventricle, moderate pulmonary hypertension, aneurysmal interatrial septum, aortic sclerosis, mild mitral regurgitation, and moderate to severe tricuspid regurgitation. Patient was started on beta sherice with metoprolol 12.5 mg daily resulting in successful control of tachycardia. Gen. surgery recommending outpatient follow- up for patient's requested colonoscopy with no surgical intervention planned at this time for treatment of rectal prolapse secondary to patient being a high risk surgical candidate. Oncology evaluated and recommended MRI of liver to further rule out metastatic process..MRI was completed showing no worrisome intrahepatic mass or intrahepatic ductal dilation seen on this study. Palliative care has been consulted secondary to advanced cirrhosis and severe protein calorie malnutrition. Discussed plan of care with ROSSY Macias with palliative care. Patient is being discharged home with [facility] and palliative care and will require raised toilet seat and a hospital bed upon discharge secondary to weakness and overall decompensated condition resulting from advanced liver cirrhosis. Patient to follow up outpatient with junior account executive, sales representative girls' apparel, general surgeon, and highly recommending establishing care with the PCP. Physical exam: Vital signs reviewed and stable. General: Cachectic appearance, appears older than her biological age, Emaciated with massive ascites Derm: Skin warm and dry, normal coloration for ethnicity. Head: Atraumatic, normocephalic and symmetric. Eyes: EOMs intact, no lid lag, and anicteric sclera Mouth: no lip lesions, mucus membranes moist Cardiovascular: regular rate and rhythm with normal S1S2, no murmur, positive posterior tibial pulses bilaterally, and cap refill < 2 seconds. Lungs: Respirations even, regular, and unlabored on room air. Lungs CTA bilaterally, no rhonchi, no rales, no wheezing, and no accessory muscle usage. Abdominal: Distended ascitic abdomen. Patient reports moderate rectal prolapse upon standing, retracted while sitting and lying. Ext: ROM intact. No gross muscle atrophy, no lower extremity edema, no contractures. Neuro: Speech clear, face symmetrical and CN II-XII grossly intact with no noted focal neuro deficits Psych: Alert and oriented to person, place, time, and situation. Appropriate and pleasant affect. A total of 34 minutes of time were spent preparing this complex discharge summary. Pt was discharged on 12/17/22 at 4:08 PM Patient was seen independently by Nurse Practitioner. This document was prepared using Wonder[employer] dictation software. Please allow for errors in food safety officer while rare they do occur. Patient Condition at Discharge: Stable Plan - Discharge Summary Discharge Rx Participant: No New Discharge Prescriptions: New Spironolactone [Aldactone] 100 mg PO DAILY #30 tab Furosemide [Lasix] 40 mg PO DAILY #30 tab Folic Acid 1 mg PO DAILY 30 Days #30 tab Metoprolol Succinate (ER) [Toprol XL] 12.5 mg PO DAILY 30 Days #30 tab Discharge Medication List Furosemide [Lasix] 40 mg PO DAILY #30 tab 12/13/22 [Rx] Spironolactone [Aldactone] 100 mg PO DAILY #30 tab 12/13/22 [Rx] Folic Acid 1 mg PO DAILY 30 Days #30 tab 12/17/22 [Rx] Metoprolol Succinate (ER) [Toprol XL] 12.5 mg PO DAILY 30 Days #30 tab 12/17/22 [Rx] Follow up Appointment(s)/Referral(s): Raymundo Barroso MD [STAFF PHYSICIAN] - [address] [facility] [NON-STAFF] - As Needed [facility] [NON-STAFF] - 1 Week Compa Magdaleno MD [STAFF PHYSICIAN] - 1 Week (Office stated for patient to please call for appointment.) Danelle Russell MD [STAFF PHYSICIAN] - 02/04/23 2:30 pm () [facility], [NON-STAFF] - 1 Week Cory Ramirez MD [STAFF PHYSICIAN] - 1 Week Patient Instructions/Handouts: Cirrhosis (DC), Ascites (DC) Activity/Diet/Wound Care/Special Instructions: Activity: As tolerated. Take breaks as needed. Diet: Heart healthy and carb consistent diet. Avoid salts, or foods with hidden salts such as canned or boxed foods and frozen dinners. Extra salt makes your heart work harder and traps the fluid in your body for longer. Special Instructions: Take all of your medications as directed and remember to keep all of your doctor's appointments and follow-up as needed. MRI was negative for any signs of liver mass or lesions. He will need to follow up outpatient as we discussed a few choose to have colonoscopy completed for further evaluation of rectal prolapse and chronic constipation. Thank you for allowing us to participate in your care, it was truly a pleasure having you for our patient!!! Discharge Disposition: HOME WITH HOME HEALTH SERVICES
[2022-12-17] MEDS ORDERED: MELATONIN 3 MG TABLET PO SCH (21:00)
== END 2022-12-17 18:44 | disposition home health service (06) | DRG 432 ==
LOC: EC 21:17 → 4SSUR 12-11 00:11
PROVIDERS: ADMIT Internal Medicine; ATTEND Internal Medicine
PROC: 0W9G3ZX Drainage of Peritoneal Cavity, Percutaneous Approach, Diagnostic (ICD-10-PCS; principal; 2022-12-11)
DX: K70.31 Alcoholic cirrhosis of liver with ascites (principal); E43 Unspecified severe protein-calorie malnutrition; Z68.1 Body mass index [BMI] 19.9 or less, adult; I25.3 Aneurysm of heart; C78.00 Secondary malignant neoplasm of unspecified lung; E87.1 Hypo-osmolality and hyponatremia; K76.6 Portal hypertension; R00.0 Tachycardia, unspecified; Z51.5 Encounter for palliative care; D64.9 Anemia, unspecified; I08.3 Combined rheumatic disorders of mitral, aortic and tricuspid valves; R79.1 Abnormal coagulation profile; E83.42 Hypomagnesemia; K62.3 Rectal prolapse; J44.9 Chronic obstructive pulmonary disease, unspecified; F17.210 Nicotine dependence, cigarettes, uncomplicated; E87.6 Hypokalemia; E88.09 Other disorders of plasma-protein metabolism, not elsewhere classified; F41.9 Anxiety disorder, unspecified; I10 Essential (primary) hypertension; D72.829 Elevated white blood cell count, unspecified; F10.10 Alcohol abuse, uncomplicated; I27.20 Pulmonary hypertension, unspecified; I70.0 Atherosclerosis of aorta; K40.90 Unilateral inguinal hernia, without obstruction or gangrene, not specified as recurrent; K59.00 Constipation, unspecified; L30.9 Dermatitis, unspecified; N99.3 Prolapse of vaginal vault after hysterectomy; Z91.81 History of falling; Z79.899 Other long term (current) drug therapy; Z82.49 Family history of ischemic heart disease and other diseases of the circulatory system; Z80.51 Family history of malignant neoplasm of kidney; Z28.311 Partially vaccinated for COVID-19; Z88.5 Allergy status to narcotic agent; Z88.8 Allergy status to other drugs, medicaments and biological substances
CPT/HCPCS: 36415; 49083; 71046; 71275; 73502; 74177; 74183; 76705; 80053; 80074; 80320; 81001; 82042; 82105; 82140; 82607; 82728; 82746; 83540; 83550; 83605; 83690; 83735; 83880; 84157; 84484; 85025; 85027; 85379; 85610; 85730; 87070; 87075; 87205; 88108; 88305; 89050; 93005; 93306

== ENCOUNTER → 2023-09-27 | Outpatient (CLI) | payer MEDICARE, OTHER ==
[2023-09-27 16:28] LABS: Basophils # (A) 0.07 X 10*3/uL (0.00-0.10); Basophils % (A) 0.8 %; Eosinophils % (A) 2.3 %; HCT 36.9 % (37.2-46.3); HGB 11.6 g/dL (12.0-15.0); Lymphocytes # (A) 2.16 X 10*3/uL (0.90-5.00); Lymphocytes % (A) 25.2 %; MCH 27.6 pg (27.0-32.0); MCHC 31.4 g/dL (32.0-37.0); MCV 87.9 FL (80.0-97.0); Mean Platelet Volume 9.2 FL (9.5-12.2); Monocytes # (A) 0.97 X 10*3/uL (0.20-1.00); Monocytes % (A) 11.3 %; NRBC Per 100 WBC 0 X 10*3/uL (0.00-0.01); Neutrophils # (A) 5.13 X 10*3/uL (1.80-7.70); Platelet Count 445 X 10*3/uL (140-440); RDW 14.9 % (11.5-14.5); WBC 8.56 X 10*3/uL (4.50-10.00)
[2023-09-27 16:37] LABS: ALT 11 U/L (8-44); AST 31 U/L (13-35); Albumin 4.3 g/dL (3.8-4.9); Albumin/Globulin Ratio 1.39 Ratio (1.60-3.17); Alkaline Phosphatase 78 U/L (41-126); Blood Urea Nitrogen 10.2 mg/dL (9.0-27.0); Calcium 9.9 mg/dL (8.7-10.3); Carbon Dioxide 25.7 mmol/L (21.6-31.8); Chloride 99 mmol/L (96-109); Globulin 3.1 g/dL (1.6-3.3); Glucose 87 mg/dL (70-110); Potassium 5.1 mmol/L (3.5-5.5); Sodium 137 mmol/L (135-145); Total Bilirubin 0.4 mg/dL (0.3-1.2); Total Protein 7.4 g/dL (6.2-8.2)
== END | disposition home or self-care (01) ==
LOC: LABWHC1 11:24
PROVIDERS: ATTEND Internal Medicine Gastroenterology
DX: K70.31 Alcoholic cirrhosis of liver with ascites (principal)
CPT/HCPCS: 36415; 80053; 82105; 85025

== ENCOUNTER → 2024-03-16 | Outpatient (CLI) | payer MEDICARE ==
--- NOTE | 2024-03-16 08:26 | US ---
EXAMINATION TYPE: US liver DATE OF EXAM: 03/16/2024 COMPARISON: US Liver 12/11/2022, MR 12/17/2022 CLINICAL INDICATION: Female, 68 years old with history of K70.31 ALCOHOLIC CIRRHOISIS LIVER WITH ASC ITES; Alcoholic cirrhosis TECHNIQUE: Multiple sonographic images of the right upper quadrant are obtained. FINDINGS: EXAM MEASUREMENTS: Liver Length: 15.7 cm Gallbladder Wall: 0.20 cm CBD: 0.79 cm Right Kidney: 9.9 x 4.5 x 3.4 cm NATURAL SCIENCES PROFESSOR NOTES: Exam is limited due to gas. Pancreas: Slightly limited due to gas. Liver: Appears coarse in echotexture. Gallbladder: Appears anechoic. Evidence for sonographic Art's sign: No CBD: *Appears dilated. Right Kidney: Renal pelvis appears prominent. IMPRESSION: 1. No evidence for acute process. 2. Coarsened echotexture liver compatible with hepatocellular disease. No suspicious masses.
[2024-03-16 14:46] LABS: Basophils # (A) 0.08 X 10*3/uL (0.00-0.10); Basophils % (A) 0.9 %; Eosinophils # (A) 0.27 X 10*3/uL (0.04-0.35); HCT 40.2 % (37.2-46.3); HGB 12.9 g/dL (12.0-15.0); Lymphocytes # (A) 1.93 X 10*3/uL (0.90-5.00); Lymphocytes % (A) 21.1 %; MCH 29.4 pg (27.0-32.0); MCHC 32.1 g/dL (32.0-37.0); MCV 91.6 FL (80.0-97.0); Mean Platelet Volume 9.1 FL (9.5-12.2); Monocytes # (A) 0.87 X 10*3/uL (0.20-1.00); Monocytes % (A) 9.5 %; NRBC Per 100 WBC 0 X 10*3/uL (0.00-0.01); Neutrophils # (A) 5.97 X 10*3/uL (1.80-7.70); Neutrophils % (A) 65.2 %; Platelet Count 444 X 10*3/uL (140-440); RBC 4.39 X 10*6/uL (4.10-5.20); RDW 14.7 % (11.5-14.5); WBC 9.15 X 10*3/uL (4.50-10.00)
[2024-03-16 15:32] LABS: ALT 9 U/L (8-44); AST 26 U/L (13-35); Albumin 4.4 g/dL (3.8-4.9); Albumin/Globulin Ratio 1.63 Ratio (1.60-3.17); Alkaline Phosphatase 91 U/L (41-126); BUN/Creat Ratio 12.33 Ratio (12.00-20.00); Blood Urea Nitrogen 7.4 mg/dL (9.0-27.0); Calcium 10.3 mg/dL (8.7-10.3); Carbon Dioxide 27.9 mmol/L (21.6-31.8); Chloride 98 mmol/L (96-109); Globulin 2.7 g/dL (1.6-3.3); Glucose 103 mg/dL (70-110); Potassium 4.5 mmol/L (3.5-5.5); Sodium 136 mmol/L (135-145); Total Bilirubin 0.4 mg/dL (0.3-1.2); Total Protein 7.1 g/dL (6.2-8.2)
== END | disposition home or self-care (01) ==
LOC: RADUSWWP 07:28
PROVIDERS: ATTEND Internal Medicine Gastroenterology
DX: K70.31 Alcoholic cirrhosis of liver with ascites (principal)
CPT/HCPCS: 36415; 76705; 80053; 82105; 85025

== ENCOUNTER → 2024-11-13 | Outpatient (CLI) | payer MEDICARE ==
--- NOTE | 2024-11-13 15:50 | US ---
EXAMINATION TYPE: US liver DATE OF EXAM: 11/13/2024 COMPARISON: 03/16/24 CLINICAL INDICATION: Female, 69 years old with history of K70.31 ALCOHOLIC CIRRHOSIS OF LIVER WITH CITES; cirrhosis TECHNIQUE: Grayscale and color Doppler imaging of the right upper quadrant was performed. FINDINGS: EXAM MEASUREMENTS: Liver Length: 13.9 cm Gallbladder Wall: 0.12 cm CBD: 0.39 cm Right Kidney: 9.1 x 4.5 x 2.8 cm MATERIALS PLANNER/PRODUCTION PLANNER NOTES: Pancreas: wnl Liver: heterogeneous and coarse , subtle nodular contour no solid masses, cysts or dilated ducts. Gallbladder: wnl Evidence for sonographic Art's sign: no CBD: wnl Right Kidney: wnl IMPRESSION: Heterogenous liver parenchyma with nodular contour correlate for cirrhosis. No suspicious observation s. [facility] Tj Lundberg, , 11/13/2024 3:48 PM
[2024-11-14 03:14] LABS: Basophils # (A) 0.09 X 10*3/uL (0.00-0.10); Basophils % (A) 0.7 %; Eosinophils # (A) 0.22 X 10*3/uL (0.04-0.35); Eosinophils % (A) 1.8 %; Lymphocytes # (A) 2.09 X 10*3/uL (0.90-5.00); Lymphocytes % (A) 16.9 %; MCH 30.1 pg (27.0-32.0); MCHC 31.7 g/dL (32.0-37.0); MCV 94.9 FL (80.0-97.0); Mean Platelet Volume 9.6 FL (9.5-12.2); Monocytes # (A) 1.12 X 10*3/uL (0.20-1.00); NRBC Per 100 WBC 0 X 10*3/uL (0.00-0.01); Neutrophils # (A) 8.81 X 10*3/uL (1.80-7.70); Neutrophils % (A) 71.2 %; Platelet Count 524 X 10*3/uL (140-440); RBC 4.32 X 10*6/uL (4.10-5.20); RDW 14.4 % (11.5-14.5); WBC 12.38 X 10*3/uL (4.50-10.00)
[2024-11-14 03:50] LABS: BUN/Creat Ratio 18.83 Ratio (12.00-20.00); Blood Urea Nitrogen 11.3 mg/dL (9.0-27.0); Glucose 95 mg/dL (70-110)
[2024-11-14 03:51] LABS: ALT 15 U/L (8-44); AST 32 U/L (13-35); Albumin 4.4 g/dL (3.8-4.9); Albumin/Globulin Ratio 1.33 Ratio (1.60-3.17); Alkaline Phosphatase 86 U/L (41-126); Calcium 9.8 mg/dL (8.7-10.3); Carbon Dioxide 27.5 mmol/L (21.6-31.8); Chloride 98 mmol/L (96-109); Globulin 3.3 g/dL (1.6-3.3); Potassium 4.2 mmol/L (3.5-5.5); Sodium 137 mmol/L (135-145); Total Bilirubin 0.9 mg/dL (0.3-1.2); Total Protein 7.7 g/dL (6.2-8.2)
== END | disposition home or self-care (01) ==
LOC: RADUSWWP 10-26 09:42
PROVIDERS: ATTEND Internal Medicine Gastroenterology
DX: K70.31 Alcoholic cirrhosis of liver with ascites (principal)
CPT/HCPCS: 76705; 80053; 82105; 85025

== ENCOUNTER 2025-01-11 13:01 | Emergency (ER) | payer MEDICARE ==
[2025-01-11 13:35] LABS: Basophils # (A) 0.07 10*3/uL (0.00-0.10); Basophils % (A) 0.6 %; Eosinophils # (A) 0.19 10*3/uL (0.04-0.35); Eosinophils % (A) 1.5 %; HCT 36.7 % (37.2-46.3); HGB 12.3 g/dL (12.0-15.0); Lymphocytes # (A) 1.49 10*3/uL (0.90-5.00); Lymphocytes % (A) 11.8 %; MCH 30.3 pg (27.0-32.0); MCHC 33.5 g/dL (32.0-37.0); MCV 90.4 fL (80.0-97.0); Mean Platelet Volume 8.9 fL (9.5-12.2); Neutrophils # (A) 10.34 10*3/uL (1.80-7.70); Neutrophils % (A) 81.7 %; Platelet Count 519 10*3/uL (140-440); RBC 4.06 10*6/uL (4.10-5.20); RDW 14.4 % (11.5-14.5); WBC 12.64 10*3/uL (4.50-10.00)
[2025-01-11] MEDS: LORazepam 0.5 MG TAB PO STA (13:37)
[2025-01-11] MEDS: SODIUM CHLORIDE 0.9% 1,000 ML IV STA (13:38)
[2025-01-11] MEDS: methylPREDNISolone SOD SUCCI 40 MG/ML 1 ML VIAL IV STA (13:38)
[2025-01-11 13:46] LABS: ALT 10 U/L (4-34); AST 24 U/L (14-36); African American GFR (CKD) >90 (>60 ml/min/1.73 sqM); Albumin 3.5 g/dL (3.5-5.0); Alcohol <10 mg/dL; Alkaline Phosphatase 82 U/L (38-126); Anion Gap 10 mmol/L; Blood Urea Nitrogen 12 mg/dL (7-17); Calcium 9.1 mg/dL (8.4-10.2); Carbon Dioxide 25 mmol/L (22-30); Chloride 100 mmol/L (98-107); Glucose 152 mg/dL (74-99); Magnesium 1.2 mg/dL (1.6-2.3); Non-African American GFR(CKD) >90 (>60 ml/min/1.73 sqM); Sodium 135 mmol/L (137-145); Total Bilirubin 0.9 mg/dL (0.2-1.3); Total Protein 6.5 g/dL (6.3-8.2)
--- NOTE | 2025-01-11 13:58 | ED ---
General Adult HPI - General Chief complaint: Chest Pain Stated complaint: heart palpatations Time Seen by Provider: 01/11/25 13:12 Source: patient, EMS, RN notes reviewed, old records reviewed Mode of arrival: EMS Limitations: no limitations - History of Present Illness Initial comments: Patient is a 69-year-old female who presents emergency department for heart palpitations, chest discomfort and shortness of breath. Started suddenly at [facility]. She does have a history of COPD. Does not require nasal cannula oxygen. States that suddenly began. She thought she was having a panic attack as she does have a history of anxiety issues however it was not subsiding which is why she called EMS. No episode of emesis as well as diarrhea and urinary incontinence prior to EMS arrival she states she felt "frozen." When EMS arrived, found patient was in SVT. Patient was administered 6 mg of IV adenosine. Patient successfully converted to normal sinus rhythm. All of patient's symptoms resolved. By time I evaluated the patient, she is feeling much improved. States she has been having slightly increased productive cough lately. No real significant worsening shortness of breath. No chest pain. No nausea or vomiting feels much improved at this time. Presents for further evaluation. No cardiac history. History of hypertension, hyperlipidemia, GERD. Denies any current chest pain, shortness of breath, abdominal pain, nausea, vom iting, diarrhea. He has no acute complaints this time. Presents for further evaluation after successful adenosine cardioversion by EMS for SVT. - Related Data Home Medications Medication Instructions Recorded Confirmed Albuterol Inhaler [Ventolin Hfa 2 puff INHALATION RT-Q4H PRN 01/11/25 01/11/25 Inhaler] Albuterol Nebulized [Ventolin 2.5 mg INHALATION RT-QID PRN 01/11/25 01/11/25 Nebulized] Budesonide/Glycopyr/Formoterol 2 puff INHALATION RT-DAILY 01/11/25 01/11/25 [Breztri Aerosphere Inhaler] Multivit-Min/Iron/Folic/Lutein 1 tab PO DAILY 01/11/25 01/11/25 [Centrum Silver Women Tablet] Previous Rx's Medication Instructions Recorded Amoxic-Pot Clav 875-125Mg 1 tab PO BID 7 Days #14 tab 01/11/25 [Augmentin 875-125] predniSONE [Deltasone] 40 mg PO DAILY 5 Days #10 tab 01/11/25 Allergies Allergy/AdvReac Type Severity Reaction Status Date / Time meperidine [From Demerol] Allergy Dyspnea Verified 01/11/25 15:22 Review of Systems ROS Statement: Those systems with pertinent positive or pertinent negative responses have been documented in the HPI. Review of Systems: CONST: Denies fever EYES: Denies blurry vision ENT: Denies nasal congestion C/V: Denies Chest pain RESP: Denies shortness of breath GI: Denies abdominal pain : Denies dysuria SKIN: Denies rash. MSK: Denies joint pain. NEURO: Denies headache ROS Other: All systems not noted in ROS Statement are negative. Past Medical History Past Medical History: COPD, GERD/Reflux, Hyperlipidemia, Hypertension, Liver Disease Additional Past Medical History / Comment(s): urinary leakage,uterine prolapse History of Any Multi-Drug Resistant Organisms: None Reported Past Surgical History: Hernia Repair, Orthopedic Surgery Additional Past Surgical History / Comment(s): umbilical hernia repair,ORIF lt wrist,carpel tunnel ruby wrist,rt hand tendon repair,facial reconstruction-metal plate chin-repair mult fx around lt eye and face,teeth removed,rt cheek skin fatty tumor removed Past Anesthesia/Blood Transfusion Reactions: No Reported Reaction Additional Past Anesthesia/Blood Transfusion Reaction / Comment(s): no hx blood transfusion Past Psychological History: Anxiety Smoking Status: Current every day smoker Past Alcohol Use History: Occasional Past Drug Use History: None Reported - Past Family History Mother Family Medical History: Cancer Additional Family Medical History / Comment(s): renal cell carcinoma Father Family Medical History: Cancer Additional Family Medical History / Comment(s): brain Son(s) Family Medical History: Congestive Heart Failure (CHF), Renal Disease Additional Family Medical History / Comment(s): obesity,hemodialysis,MRSA General Exam - General Exam Comments Initial Comments: General: Appears in no acute distress. HEAD: Normal with no signs of head trauma. EYES: PERRLA, EOMI, conjunctiva normal, no discharge. ENT: Hearing grossly intact, normal oropharynx. RESPIRATORY: Clear breath sounds bilaterally. No significant wheeze. No rhonchi. No hypoxia. C/V: Regular rhythm with mild tachycardia. S1 and S2 auscultated, no edema, peripheral pulses 2+ and intact throughout ABD: Abd is soft, nontender, nondistended EXT: Normal range of motion, no obvious deformity SKIN: No rashes or lesions observed on exposed skin. NEURO: Alert and oriented x 4. Limitations: no limitations Course Vital Signs 01/11/25 01/11/25 01/11/25 13:05 14:38 16:00 Temperature 97.6 F 98.0 F Pulse Rate 105 H 91 91 Respiratory 24 16 18 Rate Blood Pressure 138/79 123/72 128/75 O2 Sat by Pulse 98 94 L 95 Oximetry Medical Decision Making - Medical Decision Making Was pt. sent in by a medical professional or institution (, PA, PYROMETALLURGICAL ENGINEER, urgent care, hospital, or assisted...) When possible be specific @ -No Did you speak to anyone other than the patient for history (EMS, parent, family, police, friend...)? What history was obtained from this source @ -EMS who provided details regarding patient's SVT as well as the rhythm strip showing SVT and conversion with 6 mg of IV adenosine. Did you review nursing and triage notes (agree or disagree)? Why? @ -I reviewed and agree with nursing and triage notes Were old charts reviewed (outside hosp., previous admission, EMS record, old EKG, old radiological studies, urgent care reports/EKG's, assisted records)? Report findings @ -Old EKG reviewed from November 2022 with no significant acute change when compared to today's EKG. Differential Diagnosis (chest pain, altered mental status, abdominal pain women, abdominal pain men, vaginal bleeding, weakness, fever, dyspnea, syncope, headac he, dizziness, GI bleed, back pain, seizure, CVA, palpatations, mental health, musculoskeletal)? @ -SVT, thyroid abnormalities, electrolyte abnormalities, COPD, bronchitis, pneumonia. This list is not inclusive. EKG interpreted by me (3pts min.). @ -As above X-rays interpreted by me (1pt min.). @ -Patient was possible bilateral lower lobe pneumonia versus atelectasis. CT interpreted by me (1pt min.). @ -None done U/S interpreted by me (1pt. min.). @ -None done What testing was considered but not performed or refused? (CT, X-rays, U/S, labs)? Why? @ -None What meds were considered but not given or refused? Why? @ -None Did you discuss the management of the patient with other professionals (professionals i.e. , PA, PYROMETALLURGICAL ENGINEER, lab, RT, psych nurse, child protective services social worker, side seam tender, teacher, family preservation officer, outsole caser)? Give summary @ -No Was smoking cessation discussed for >3mins.? @ -No Was critical care preformed (if so, how long)? @ -No Were there social determinants of health that impacted care today? How? (Homelessness, low income, unemployed, alcoholism, drug addiction, transportat ion, low edu. Level, literacy, decrease access to med. care, senior care, rehab)? @ -No Was there de-escalation of care discussed even if they declined (Discuss DNR or withdrawal of care, Hospice)? DNR status @ -No What co-morbidities impacted this encounter? (DM, HTN, Smoking, COPD, CAD, Cancer, CVA, ARF, Chemo, Hep., AIDS, mental health diagnosis, sleep apnea, morbid obesity)? @ -COPD Was patient admitted / discharged? Hospital course, mention meds given and route, prescriptions, significant lab abnormalities, going to OR and other pertinent info. @ -Presents emergency department complaining of SVT. Successful conversion with adenosine to normal sinus rhythm by EMS. Currently in normal sinus rhythm. All symptoms of SVT resolved, which out of hospital included palpitations, chest discomfort, shortness of breath. He has been having mild increased mucus production and she does have a history of COPD. No shortness of breath currently. Is not on oxygen. Vitals are within except limits. Will obtain laboratory studies, EKG, chest x-ray. She was in agreement this plan. Currently in normal sinus rhythm. EKG shows sinus tachycardia.X-ray shows possible bilateral lower lobe pneumonia versus atelectasis. Laboratory studies remarkable for mild leukocytosis of 12 which is likely reactive, hypomagnesemia of 1.2. The remainder the workup unremarkable. On reevaluation, vital signs are within normal limits. I did offer admission for the low magnesium and observation however patient would like to go home. We discussed her results and that she may have pneumonia, and likely bronchitis considering increased mucus production. Patient will be discharged home on prednisone, as well as Augmentin. Given a dose of IV Rocephin and Augmentin prior to discharge. She was in agreement this plan. I did recommend she obtain magnesium supplementation which she states she already has just has not initiated. She did receive the 1 g of magnesium IV here prior to discharge and will initiate her home supplementation. Strict return cautions discussed. Recommend she follow-up with her panman, Dr. Maria. I instructed the patient to follow up with their PCP in the next 1-3 days. I explained that the patient should return to the emergency department if they experience any worsening symptoms. Strict return precautions were discussed with the patient. The patient expressed understanding of these instructions. I answered all questions that the patient had. The patient was discharged home in good condition with their prescriptions and follow up information. Undiagnosed new problem with uncertain prognosis? @ -No Drug Therapy requiring intensive monitoring for toxicity (Heparin, Nitro, Insulin, Cardizem)? @ -No Were any procedures done? @ -No Diagnosis/symptom? @ -SVT, hypomagnesemia, pneumonia versus tracheobronchitis Acute, or Chronic, or Acute on Chronic? @ -Acute Uncomplicated (without systemic symptoms) or Complicated (systemic symptoms)? @ -Uncomplicated Side effects of treatment? @ -None Exacerbation, Progression, or Severe Exacerbation] @ -No Poses a threat to life or bodily function? @ -Unlikely at this time - Lab Data Result diagrams: 01/11/25 13:27 01/11/25 13:27 Lab Results 01/11/25 01/11/25 01/11/25 Range/Units 13:27 13:27 13:27 WBC 12.64 H (4.50-10.00) 10*3/uL RBC 4.06 L (4.10-5.20) 10*6/uL Hgb 12.3 (12.0-15.0) g/dL Hct 36.7 L (37.2-46.3) % MCV 90.4 (80.0-97.0) fL MCH 30.3 (27.0-32.0) pg MCHC 33.5 (32.0-37.0) g/dL Plt Count 519 H (140-440) 10*3/uL MPV 8.9 L (9.5-12.2) fL Immature Gran % (Auto) 0.4 % Neutrophils % 81.7 % Lymphocytes % 11.8 % Monocytes % 4.0 % Eosinophils % 1.5 % Basophils % 0.6 % Immature Gran # 0.05 H (0.00-0.04) 10*3/uL Neutrophils # 10.34 H (1.80-7.70) 10*3/uL Lymphocytes # 1.49 (0.90-5.00) 10*3/uL Monocytes # 0.50 (0.20-1.00) 10*3/uL Eosinophils # 0.19 (0.04-0.35) 10*3/uL Basophils # 0.07 (0.00-0.10) 10*3/uL Sodium 135 L (137-145) mmol/L Potassium 4.0 (3.5-5.1) mmol/L Chloride 100 (98-107) mmol/L Carbon Dioxide 25 (22-30) mmol/L Anion Gap 10 mmol/L BUN 12 (7-17) mg/dL Creatinine 0.59 (0.52-1.04) mg/dL Est GFR (CKD-EPI)AfAm >90 (>60 ml/min/1.73 sqM) Est GFR (CKD-EPI)NonAf >90 (>60 ml/min/1.73 sqM) Glucose 152 H (74-99) mg/dL Calcium 9.1 (8.4-10.2) mg/dL Magnesium 1.2 L (1.6-2.3) mg/dL Total Bilirubin 0.9 (0.2-1.3) mg/dL AST 24 (14-36) U/L ALT 10 (4-34) U/L Alkaline Phosphatase 82 (38-126) U/L Total Protein 6.5 (6.3-8.2) g/dL Albumin 3.5 (3.5-5.0) g/dL TSH 2.730 (0.465-4.680) mIU/L Serum Alcohol <10 mg/dL Influenza Type A (PCR) Not Detected (Not Detectd) Influenza Type B (PCR) Not Detected (Not Detectd) RSV (PCR) Not Detected (Not Detectd) SARS-CoV-2 (PCR) Not Detected (Not Detectd) - EKG Data -: EKG Interpreted by Me EKG Comments: 12-lead Electrocardiogram Interpretation Note EKG was reviewed and interpreted by myself. 12-lead ECG performed at 1309 is interpreted by me as revealing sinus tachycardia at a rate of 109beats per minute. Shel[place] is normal. LA interval is 136 ms, QRS duration is 80 ms, QTc is 397 ms.. There were no ST or T wave abnormalities to suggest myocardial ischemia or injury. R wave progression across the precordium was delayed. By my interpretation this EKG is non-diagnostic for acute ischemia. Compared with EKG from November 2022 with no significant change. Disposition Clinical Impression: SVT (supraventricular tachycardia), Hypomagnesemia, Pneumonia Disposition: HOME SELF-CARE Condition: Good Instructions (If sedation given, give patient instructions): Supraventricular Tachycardia (ED), Community Acquired Pneumonia (ED) Additional Instructions: X-ray showed a possible pneumonia, and in the setting of your bronchitis type symptoms we will empirically treat with antibiotics for the pneumonia. Your SVT should not recur but if it does please return to the emergency department. Follow-up with your panman Dr. Maria for further management. Return to the ER for any worsening symptoms. Follow-up with your PCP in the next 1 to 3 days. Initiate your magnesium supplements at home for your low magnesium levels. Prescriptions: Amoxic-Pot Clav 875-125Mg [Augmentin 875-125] 1 tab PO BID 7 Days #14 tab predniSONE [Deltasone] 40 mg PO DAILY 5 Days #10 tab Is patient prescribed a controlled substance at d/c from ED?: No Referrals: None,Stated [Primary Care Provider] - 1-2 days Raymundo Barroso MD [STAFF PHYSICIAN] - 1-2 days Forms: Area PCPs Time of Disposition: 15:22
[2025-01-11 14:14] LABS: Influenza A Not Detected (Not Detectd); Influenza B Not Detected (Not Detectd); RSV Not Detected (Not Detectd)
--- NOTE | 2025-01-11 14:19 | XR ---
EXAMINATION TYPE: XR chest 2V DATE OF EXAM: 01/11/2025 2:12 PM COMPARISON: Chest radiographs from 12/10/2022, CTA chest 12/15/2022 TECHNIQUE: XR chest 2V Frontal and lateral views of the chest. CLINICAL INDICATION:Female, 69 years old with history of dysrhythmia; FINDINGS: Lungs/Pleura: Hyperinflation. Trace bilateral pleural effusions. Bibasilar patchy airspace opacities left greater than right. Right nipple shadow identified. Pulmonary vascularity: Unremarkable. Heart/mediastinum: Cardiomediastinal silhouette is unremarkable. Atherosclerotic calcifications are seen in the aorta. Musculoskeletal: No acute osseous pathology. IMPRESSION: 1. Trace bilateral pleural effusions with bibasilar patchy airspace opacities concerning for atelect asis versus infiltrates. 2. COPD changes. [facility], , 01/11/2025 2:16 PM
[2025-01-11] MEDS: MAGNESIUM SULFATE-D5W PMX 1 GM in DEXTROSE/WATER 1 100ML.BAG IVPB ONE (14:36)
[2025-01-11 14:39] VITALS: PULSE 91
[2025-01-11] MEDS: AMOXIC-POT CLAV 875-125MG 1 EACH TAB PO STA (15:31)
[2025-01-11] MEDS: cefTRIAXone IN SWFI 1,000 MG/10 ML SYRINGE IVP STA (15:31)
[2025-01-11 16:54] VITALS: BP 128/75; RESP 18; TEMP 98
== END 2025-01-11 16:30 | disposition home or self-care (01) ==
LOC: EC 13:01
DX: I47.10 Supraventricular tachycardia, unspecified (principal); E83.42 Hypomagnesemia; J18.9 Pneumonia, unspecified organism; J44.9 Chronic obstructive pulmonary disease, unspecified; F17.200 Nicotine dependence, unspecified, uncomplicated; Z88.5 Allergy status to narcotic agent
CPT/HCPCS: 36415; 93005; 80053; 83735; 84443; 85025; 80320; 87636; 71046; 99285; 96365; 96375 ×2; 96361; J0696; J3475; J2919

== ENCOUNTER → 2025-03-18 | Outpatient (CLI) | payer MEDICARE, OTHER ==
--- NOTE | 2025-03-18 15:26 | BD ---
EXAMINATION TYPE: Axial Bone Density DATE OF EXAM: 03/18/2025 CLINICAL HISTORY: 69 years old Female. ICD-10 CODE: Z78.0 ASYMT [place] STATE , Additional History: Height: 61 Weight: 80 FRAX RISK QUESTIONS: Alcohol (3 or more units per day): in the past, nothing now Glucocorticoids (More than 3mos): yes, and breathing treatments, for copd, hx of rsv, and oral predn isone, emphysema (Ex: prednisone, prednisolone, methylprednisolone, dexamethasone, and hydrocortisone). History of Fracture in Adulthood: yes Secondary Osteoporosis: yes 3. Menopause before 45: no, 46 4. Malnutrition: extremely underweight 5. Chronic liver disease: yes Current Tobacco Use: yes RISK FACTORS HISTORY OF: hx of lt jaw, left arm ulna broken, hx of knee fx MEDICATIONS: multivitamin only, steroids, EXAM MEASUREMENTS: Bone mineral densitometry was performed using the [employer] System. Bone mineral density as measured about the Lumbar spine is: ----- L1-L4(G/cm2): 1.170 T Score Values are as follows: ----- L1: -1.9 ----- L2: -0.8 ----- L3: 0.8 ----- L4: 1.5 ----- L1-L4: -0.1 Z Score Values are as follows: ----- L1: 0.8 ----- L2: 1.8 ----- L3: 3.4 ----- L4: 4.1 ----- L1-L4: 2.6 Bone mineral density is a baseline study. Bone mineral density about the R hip (g/cm2): 0.731 Bone mineral density about the L hip (g/cm2): 0.677 T Score values are as follows: -----R Neck: -1.2 -----L Neck: -2.2 -----R Total: -2.2 -----L Total: -2.6 Z Score values are as follows: -----R Neck: 1.2 -----L Neck: 0.2 -----R Total: 0.0 -----L Total: -0.2 Bone mineral density is her first study, baseline FRAX%s: The graph provided illustrates a 30.9% chance for a major osteoporotic fx and a 16.1% chance for the hips probability for fx in 10 years time. IMPRESSION: Osteopenia (T Score between -2.5 and -1). There is slightly increased risk of fracture and the patient may be considered for treatment. Re-Screen 2-5 years. NOTE: T-SCORE=SD OF THE YOUNG ADULT MEAN. [facility], , 03/18/2025 3:24 PM
== END | disposition home or self-care (01) ==
LOC: RADBDWWP 11:05
PROVIDERS: ATTEND Internal Medicine
DX: M85.89 Other specified disorders of bone density and structure, multiple sites (principal); E46 Unspecified protein-calorie malnutrition; Z78.0 Asymptomatic menopausal state
CPT/HCPCS: 77080

== ENCOUNTER 2025-03-22 16:21 | Emergency (ER) | payer MEDICARE, OTHER ==
[2025-03-22 16:34] VITALS: RESP 18
--- NOTE | 2025-03-22 16:36 | ED ---
General Adult HPI - General Stated complaint: Cardiac Issues Time Seen by Provider: 03/22/25 16:24 Source: patient, EMS, RN notes reviewed Mode of arrival: EMS Limitations: no limitations - History of Present Illness Initial comments: Patient is a 69-year-old female present to the emergency department with concerns with difficulty breathing. Onset of symptoms was late morning. Patient states symptoms are somewhat similar to COPD. Patient did become anxious and questions if that made her symptoms worse. Patient is feeling better at this time. Patient only feels a little bit anxious and no longer feels short of breath. Patient did have recent sore on her outer chin and popped it the other day and the size has improved. - Related Data Home Medications Medication Instructions Recorded Confirmed Albuterol Inhaler [Ventolin Hfa 2 puff INHALATION RT-Q4H PRN 01/11/25 01/11/25 Inhaler] Albuterol Nebulized [Ventolin 2.5 mg INHALATION RT-QID PRN 01/11/25 01/11/25 Nebulized] Budesonide/Glycopyr/Formoterol 2 puff INHALATION RT-DAILY 01/11/25 01/11/25 [Breztri Aerosphere Inhaler] Multivit-Min/Iron/Folic/Lutein 1 tab PO DAILY 01/11/25 01/11/25 [Centrum Silver Women Tablet] Previous Rx's Medication Instructions Recorded Amoxic-Pot Clav 875-125Mg 1 tab PO BID 7 Days #14 tab 01/11/25 [Augmentin 875-125] predniSONE [Deltasone] 40 mg PO DAILY 5 Days #10 tab 01/11/25 Amoxic-Pot Clav 400-57Mg/5Ml 5 ml PO Q12H #100 ml 03/22/25 [Augmentin 400-57 mg/5 ml Susp] Allergies Allergy/AdvReac Type Severity Reaction Status Date / Time meperidine [From Demerol] Allergy Dyspnea Verified 03/22/25 16:34 Review of Systems ROS Statement: Those systems with pertinent positive or pertinent negative responses have been documented in the HPI. ROS Other: All systems not noted in ROS Statement are negative. Constitutional: Denies: fever Eyes: Denies: eye pain Respiratory: Reports: as per HPI, cough, dyspnea Cardiovascular: Denies: chest pain Endocrine: Denies: fatigue Psychiatric: Reports: anxiety Past Medical History Past Medical History: COPD, GERD/Reflux, Hyperlipidemia, Hypertension, Liver Disease Additional Past Medical History / Comment(s): urinary leakage,uterine prolapse History of Any Multi-Drug Resistant Organisms: None Reported Past Surgical History: Hernia Repair, Orthopedic Surgery Additional Past Surgical History / Comment(s): umbilical hernia repair,ORIF lt wrist,carpel tunnel ruby wrist,rt hand tendon repair,facial reconstruction-metal plate chin-repair mult fx around lt eye and face,teeth removed,rt cheek skin fatty tumor removed Past Anesthesia/Blood Transfusion Reactions: No Reported Reaction Additional Past Anesthesia/Blood Transfusion Reaction / Comment(s): no hx blood transfusion Past Psychological History: Anxiety Smoking Status: Current every day smoker Past Alcohol Use History: Occasional Past Drug Use History: None Reported - Past Family History Mother Family Medical History: Cancer Additional Family Medical History / Comment(s): renal cell carcinoma Father Family Medical History: Cancer Additional Family Medical History / Comment(s): brain Son(s) Family Medical History: Congestive Heart Failure (CHF), Renal Disease Additional Family Medical History / Comment(s): obesity,hemodialysis,MRSA General Exam Limitations: no limitations General appearance: alert, in no apparent distress Head exam: Present: normocephalic Eye exam: Present: normal appearance ENT exam: Present: normal oropharynx, other (Underneath right side of the chin there is a healing 2 cm sore consistent with likely healing abscess) Neck exam: Present: normal inspection Respiratory exam: Present: decreased breath sounds. Absent: respiratory distress, wheezes Cardiovascular Exam: Present: tachycardia GI/Abdominal exam: Present: soft. Absent: tenderness Extremities exam: Present: normal inspection. Absent: pedal edema, calf tenderness Neurological exam: Present: alert Psychiatric exam: Present: normal affect, normal mood Skin exam: Present: normal color Course Vital Signs 03/22/25 03/22/25 03/22/25 16:24 16:34 17:46 Temperature 98.7 F Pulse Rate 120 H 111 H 98 Pulse Rate [ 111 H Incident Response Engineer ] Respiratory 18 18 18 Rate Blood Pressure 127/82 136/94 119/69 O2 Sat by Pulse 96 94 L 97 Oximetry 03/22/25 18:36 Temperature Pulse Rate 89 Pulse Rate [ Incident Response Engineer ] Respiratory 18 Rate Blood Pressure 110/70 O2 Sat by Pulse 94 L Oximetry EKG Findings - EKG Results: EKG: interpreted by ERMD, sinus rhythm, normal axis, normal QRS, normal ST/T EKG shows: tachycardia Medical Decision Making - Medical Decision Making Was pt. sent in by a medical professional or institution ([facility]Z Conklin, SENIOR PRODUCT DEVELOPMENT MANAGER, urgent care, hospital, or retirement...) When possible be specific @ -No Did you speak to anyone other than the patient for history (EMS, parent, family, police, friend...)? What history was obtained from this source @ -Family is present helps provide history including patient's past medical history Did you review nursing and triage notes (agree or disagree)? Why? @ -I reviewed and agree with nursing and triage notes Were old charts reviewed (outside hosp., previous admission, EMS record, old EKG, old radiological studies, urgent care reports/EKG's, retirement records)? Report findings @ -No old charts were reviewed Differential Diagnosis (chest pain, altered mental status, abdominal pain women, abdominal pain men, vaginal bleeding, weakness, fever, dyspnea, syncope, headache, dizziness, GI bleed, back pain, seizure, CVA, palpatations, mental health, musculoskeletal)? @ -Differential Dyspnea: Coronary syndrome, arrhythmia, tamponade, asthma, COPD, pulmonary embolism, pneumonia, pneumothorax, pulmonary effusion, anaphylaxis, diabetic ketoacidosis, flailed chest, pulmonary contusion, diaphragmatic rupture, anemia, neuromuscular, this is not meant to be an all-inclusive list. EKG interpreted by me (3pts min.). @ -As above X-rays interpreted by me (1pt min.). @ -Chest x-ray shows COPD CT interpreted by me (1pt min.). @ -CT scan of the chest negative for pulmonary embolism. There is questionable changes right apex and thyroid. Possible infectious bilateral basis U/S interpreted by me (1pt. min.). @ -None done What testing was considered but not performed or refused? (CT, X-rays, U/S, labs)? Why? @ -None What meds were considered but not given or refused? Why? @ -None Did you discuss the management of the patient with other professionals (professionals i.e. IT[facility] Conklin, SENIOR PRODUCT DEVELOPMENT MANAGER, lab, RT, psych nurse, hospital social worker, invoicing machine operator, teacher, police booking officer, case resolution specialist)? Give summary @ -No Was smoking cessation discussed for >3mins.? @ -No Was critical care preformed (if so, how long)? @ -No Were there social determinants of health that impacted care today? How? (Homelessness, low income, unemployed, alcoholism, drug addiction, transportation, low edu. Level, literacy, decrease access to med. care, halfway, rehab)? @ -No Was there de-escalation of care discussed even if they declined (Discuss DNR or withdrawal of care, Hospice)? DNR status @ -No What co-morbidities impacted this encounter? (DM, HTN, Smoking, COPD, CAD, Cancer, CVA, ARF, Chemo, Hep., AIDS, mental health diagnosis, sleep apnea, morbid obesity)? @ -COPD Was patient admitted / discharged? Hospital course, mention meds given and route, prescriptions, significant lab abnormalities, going to OR and other pertinent info. @ -Patient presents with difficulty in breathing and anxiety. On reevaluation patient feels much better and symptom-free. Patient is comfortable discharge home. Patient is on palliative care. Patient and family are updated regarding concerns for changes and need for follow-up. They will arrange this. Undiagnosed new problem with uncertain prognosis? @ -No Drug Therapy requiring intensive monitoring for toxicity (Heparin, Nitro, Insulin, Cardizem)? @ -No Were any procedures done? @ -No Diagnosis/symptom? @ -Dyspnea Acute, or Chronic, or Acute on Chronic? @ -Acute Uncomplicated (without systemic symptoms) or Complicated (systemic symptoms)? @ -Default Side effects of treatment? @ -No Exacerbation, Progression, or Severe Exacerbation? @ -No Poses a threat to life or bodily function? How? (Chest pain, [place], [place], pneumonia, PE, COPD, DKA, ARF, appy, cholecystitis, CVA, Diverticulitis, Homicidal, Suicidal, threat to staff... and all critical care pts) @ -Threat to pulmonary function - Lab Data Result diagrams: 03/22/25 16:28 03/22/25 16:28 Lab Results 03/22/25 03/22/25 03/22/25 Range/Units 16:28 16:28 16:28 WBC 13.56 H (4.50-10.00) 10*3/uL RBC 3.83 L (4.10-5.20) 10*6/uL Hgb 11.5 L (12.0-15.0) g/dL Hct 34.4 L (37.2-46.3) % MCV 89.8 (80.0-97.0) fL MCH 30.0 (27.0-32.0) pg MCHC 33.4 (32.0-37.0) g/dL Plt Count 446 H (140-440) 10*3/uL MPV 8.7 L (9.5-12.2) fL Immature Gran % (Auto) 0.4 % Neutrophils % 80.0 % Lymphocytes % 11.5 % Monocytes % 6.4 % Eosinophils % 1.0 % Basophils % 0.7 % Immature Gran # 0.06 H (0.00-0.04) 10*3/uL Neutrophils # 10.85 H (1.80-7.70) 10*3/uL Lymphocytes # 1.56 (0.90-5.00) 10*3/uL Monocytes # 0.87 (0.20-1.00) 10*3/uL Eosinophils # 0.13 (0.04-0.35) 10*3/uL Basophils # 0.09 (0.00-0.10) 10*3/uL PT 11.2 (10.0-12.5) sec INR 1.0 (<1.2) APTT 24.4 (22.0-30.0) sec D-Dimer 1.09 H (<0.60) mg/L FEU Sodium 135 L (137-145) mmol/L Potassium 4.4 (3.5-5.1) mmol/L Chloride 100 (98-107) mmol/L Carbon Dioxide 26 (22-30) mmol/L Anion Gap 9 mmol/L BUN 13 (7-17) mg/dL Creatinine 0.73 (0.52-1.04) mg/dL Est GFR (CKD-EPI)AfAm >90 (>60 ml/min/1.73 sqM) Est GFR (CKD-EPI)NonAf 83 (>60 ml/min/1.73 sqM) Glucose 152 H (74-99) mg/dL Lactic Ac Sepsis Rflx Plasma Lactic Acid Charles (0.7-2.0) mmol/L Calcium 8.9 (8.4-10.2) mg/dL Magnesium 1.3 L (1.6-2.3) mg/dL Total Bilirubin 0.6 (0.2-1.3) mg/dL AST 27 (14-36) U/L ALT 11 (4-34) U/L Alkaline Phosphatase 77 (38-126) U/L Troponin I (0.000-0.034) ng/mL Total Protein 6.5 (6.3-8.2) g/dL Albumin 3.8 (3.5-5.0) g/dL 03/22/25 03/22/25 03/22/25 Range/Units 16:28 16:55 17:35 WBC (4.50-10.00) 10*3/uL RBC (4.10-5.20) 10*6/uL Hgb (12.0-15.0) g/dL Hct (37.2-46.3) % MCV (80.0-97.0) fL MCH (27.0-32.0) pg MCHC (32.0-37.0) g/dL Plt Count (140-440) 10*3/uL MPV (9.5-12.2) fL Immature Gran % (Auto) % Neutrophils % % Lymphocytes % % Monocytes % % Eosinophils % % Basophils % % Immature Gran # (0.00-0.04) 10*3/uL Neutrophils # (1.80-7.70) 10*3/uL Lymphocytes # (0.90-5.00) 10*3/uL Monocytes # (0.20-1.00) 10*3/uL Eosinophils # (0.04-0.35) 10*3/uL Basophils # (0.00-0.10) 10*3/uL PT (10.0-12.5) sec INR (<1.2) APTT (22.0-30.0) sec D-Dimer (<0.60) mg/L FEU Sodium (137-145) mmol/L Potassium (3.5-5.1) mmol/L Chloride (98-107) mmol/L Carbon Dioxide (22-30) mmol/L Anion Gap mmol/L BUN (7-17) mg/dL Creatinine (0.52-1.04) mg/dL Est GFR (CKD-EPI)AfAm (>60 ml/min/1.73 sqM) Est GFR (CKD-EPI)NonAf (>60 ml/min/1.73 sqM) Glucose (74-99) mg/dL Lactic Ac Sepsis Rflx Y Plasma Lactic Acid Charles 2.1 H* (0.7-2.0) mmol/L Calcium (8.4-10.2) mg/dL Magnesium (1.6-2.3) mg/dL Total Bilirubin (0.2-1.3) mg/dL AST (14-36) U/L ALT (4-34) U/L Alkaline Phosphatase (38-126) U/L Troponin I <0.012 (0.000-0.034) ng/mL Total Protein (6.3-8.2) g/dL Albumin (3.5-5.0) g/dL Disposition Clinical Impression: Dyspnea Disposition: HOME SELF-CARE Condition: Stable Instructions (If sedation given, give patient instructions): Dyspnea (ED) Additional Instructions: Please do follow-up with your primary care physician in the next day or 2 for recheck. Return for difficulty breathing, fevers, worsening or changing symptoms or any other concerns. Please have regular doctor review CT scan res ults from today and obtain further imaging/testing. Prescription for antibiotics sent to pharmacy. Prescriptions: Amoxic-Pot Clav 400-57Mg/5Ml [Augmentin 400-57 mg/5 ml Susp] 5 ml PO Q12H #100 ml Is patient prescribed a controlled substance at d/c from ED?: No Referrals: Moy August DO [Primary Care Provider] - 1-2 days Time of Disposition: 19:51
[2025-03-22 16:39] LABS: Basophils # (A) 0.09 10*3/uL (0.00-0.10); Basophils % (A) 0.7 %; Eosinophils # (A) 0.13 10*3/uL (0.04-0.35); HCT 34.4 % (37.2-46.3); HGB 11.5 g/dL (12.0-15.0); Lymphocytes # (A) 1.56 10*3/uL (0.90-5.00); Lymphocytes % (A) 11.5 %; MCHC 33.4 g/dL (32.0-37.0); MCV 89.8 fL (80.0-97.0); Mean Platelet Volume 8.7 fL (9.5-12.2); Monocytes # (A) 0.87 10*3/uL (0.20-1.00); Monocytes % (A) 6.4 %; Neutrophils # (A) 10.85 10*3/uL (1.80-7.70); Platelet Count 446 10*3/uL (140-440); RBC 3.83 10*6/uL (4.10-5.20); RDW 14.4 % (11.5-14.5); WBC 13.56 10*3/uL (4.50-10.00)
[2025-03-22 16:56] LABS: Partial Thromboplastin Time 24.4 sec (22.0-30.0); Prothrombin Time 11.2 sec (10.0-12.5)
[2025-03-22 16:58] LABS: ALT 11 U/L (4-34); AST 27 U/L (14-36); African American GFR (CKD) >90 (>60 ml/min/1.73 sqM); Albumin 3.8 g/dL (3.5-5.0); Alkaline Phosphatase 77 U/L (38-126); Anion Gap 9 mmol/L; Blood Urea Nitrogen 13 mg/dL (7-17); Calcium 8.9 mg/dL (8.4-10.2); Carbon Dioxide 26 mmol/L (22-30); Chloride 100 mmol/L (98-107); Glucose 152 mg/dL (74-99); Magnesium 1.3 mg/dL (1.6-2.3); Non-African American GFR(CKD) 83 (>60 ml/min/1.73 sqM); Potassium 4.4 mmol/L (3.5-5.1); Sodium 135 mmol/L (137-145); Total Bilirubin 0.6 mg/dL (0.2-1.3); Total Protein 6.5 g/dL (6.3-8.2)
[2025-03-22] MEDS: LORazepam 1 MG/0.5 ML VIAL IV STA (17:03)
--- NOTE | 2025-03-22 17:24 | XR ---
EXAMINATION TYPE: XR chest 2V DATE OF EXAM: 03/22/2025 5:19 PM COMPARISON: Chest radiographs from 01/11/2025, CTA chest 12/15/2022 TECHNIQUE: XR chest 2V Frontal and lateral views of the chest. CLINICAL INDICATION:Female, 69 years old with history of difficulty breathing; FINDINGS: Lungs/Pleura: There is flattening of the diaphragm with increased lucency of the lungs. No evidence o f pneumothorax or pleural effusion. Trace bilateral lower lobe subsegmental atelectasis and/or scarri ng. Biapical pleural-parenchymal scarring. Pulmonary vascularity: Unremarkable. Heart/mediastinum: Cardiomediastinal silhouette is unremarkable. Atherosclerotic calcifications are seen in the aorta. Musculoskeletal: No acute osseous pathology. IMPRESSION: 1. Trace bilateral lower lobe subsegmental atelectasis and/or scarring. 2. COPD changes. [facility], , 03/22/2025 5:22 PM
--- NOTE | 2025-03-22 19:28 | CT ---
EXAMINATION TYPE: CT angio chest CT DLP: 146.3 mGycm, Automated exposure control for dose reduction was used. DATE OF EXAM: 03/22/2025 6:29 PM COMPARISON: CTA chest 12/15/2022. CLINICAL INDICATION:Female, 69 years old with history of bethany; BETHANY TECHNIQUE/CONTRAST: CTA scan of the thorax is performed with IV Contrast, patient injected with 100ml mL of Isovue 370, M IP images are created and reviewed these are created on a separate workstation.. FINDINGS: Pulmonary Artery: There is no evidence for a filling defect within the pulmonary vasculature to sugge st acute pulmonary embolism. The pulmonary artery is of normal size. Lungs/Pleura: Diffuse advanced centrilobular emphysema and scattered paraseptal emphysematous changes are seen most pronounced in the apices. The areas of nodular scarring in the bilateral apices appear s more conspicuous especially on the right with associated nodular component measuring up to 2.7 cm. There are multiple scattered patchy nonspecific groundglass changes with tree-in-bud nodularity in th e bilateral lower lobes more pronounced on the left. No pleural effusion or pneumothorax identified. Airway: Large airways are patent. Heart: The heart is mildly enlarged for size. Vasculature: Atherosclerotic changes of the aorta. No aneurysmal changes. Mediastinum: Soft tissue fullness and attenuation is seen in the right hilum measuring up to at least 12.1 cm in short axis and is similar in appearance to the CT in reference.. Musculoskeletal: No acute osseous abnormalities Soft Tissues/lymph nodes: Unremarkable. Lower neck: Heterogenous and enlarged right thyroid gland. Upper Abdomen: Small hiatal hernia. Opacity of intra-abdominal fat limits evaluation. Somewhat nodula r morphology of the liver suggested. IMPRESSION: 1. No evidence of pulmonary embolism. 2. More conspicuous appearance of nodular changes in the bilateral apices most notably on the right s bennett which still may relate to scarring but there is a suggested 2.7 cm nodular component. These findi ngs could represent underlying malignant neoplasm and therefore should be further characterized with PET CT and clinical evaluation. 3. Scattered patchy groundglass changes with tree-in-bud nodularity in the bilateral lower lobes may relate to an infectious/inflammatory process. Continued attention on follow-up. 4. Hypoattenuation of fullness in the area of the right thyroid gland may represent a goiter versus s eparate lymphadenopathy. Compare with any known history or prior imaging otherwise a dedicated neck/t hyroid ultrasound is recommended for further characterization. 5. Right hilar lymphadenopathy may be reactive or related to the process and impression #2. This can also be further characterized on PET CT. 6. Nodular contour of the liver is suggestive of cirrhosis. Correlate with any known history and clin ical evaluation. [facility], , 03/22/2025 7:26 PM
[2025-03-22] MEDS: MAGNESIUM OXIDE 400 MG TAB PO STA (20:09)
[2025-03-22 20:13] VITALS: BP 123/95; PULSE 97; TEMP 98.3
== END 2025-03-22 20:19 | disposition home or self-care (01) ==
LOC: EC 16:21
DX: R06.00 Dyspnea, unspecified (principal); J44.9 Chronic obstructive pulmonary disease, unspecified; F17.200 Nicotine dependence, unspecified, uncomplicated; Z88.5 Allergy status to narcotic agent
CPT/HCPCS: 36415; 93005; 85379; 80053; 83605; 83735; 84484; 85025; 85610; 85730; 71046; 71275; 99285; 96374; J2060; Q9967

== ENCOUNTER → 2025-04-09 | Outpatient (CLI) | payer MEDICARE, OTHER ==
--- NOTE | 2025-04-09 15:22 | PE ---
EXAMINATION TYPE: PET CT fusion skull to thigh DATE OF EXAM: 04/09/2025 CLINICAL INDICATION:Female, 69 years old with history of R91.8 LUNG NODULE; TECHNIQUE: Following the intravenous administration of 9.28 mCi of F-18 FDG, whole body images are performed from the skull base to the Mid thigh. Images are reviewed on the computer in the coronal, axial, and sagittal planes. Reconstructed rotating images are created on independent workstation and reviewed on the computer. A non-contrast CT is performed in conjunction with the PET scan. Glucose level 108 mg/dL CT DLP: 222 mGycm, Automated exposure control for dose reduction was used. COMPARISON: CT 03/22/2025, PET/CT None, MRI: None FINDINGS: Mediastinal SUV mean is 1.5. Hepatic parenchyma SUV mean is 2.0. SKULL BASE AND NECK: Uptake within the right mandible max SUV 9.9 CHEST, MEDIASTINUM, AND HILAR REGION: * Right upper lung scarring/atelectasis max SUV 1.8 * There is debris in the right lower lobe large airways extending to the area of consolidation max S UV primarily in a peripheral distribution 6.3. History abdominal pain indicate with me ABDOMEN AND PELVIS: No suspicious radiotracer activity. MUSCULOSKELETAL STRUCTURES: No suspicious radiotracer activity. OTHER CT: Atherosclerosis of the carotid bifurcations. Moderate to severe emphysema changes. Scattere d colonic diverticula. Severe at this course of the arterial vasculature. IMPRESSION: 1. Right lower lobe consolidation with somewhat poor peripheral circular area of uptake. Findings of this time could represent infection given debris within the large airway. Short-term follow-up recom mended with CT imaging. Cancer is not excluded this time. 2. Right mandibular uptake uncertain etiology possibly otogenic in nature. Further workup recommende d correlate with dental exam. [facility], , 04/09/2025 3:19 PM
== END | disposition home or self-care (01) ==
LOC: RADPETMAIN 13:19
PROVIDERS: ATTEND Internal Medicine
DX: R91.8 Other nonspecific abnormal finding of lung field (principal)
CPT/HCPCS: 78815; A9552